=== PATIENT | male | born 1940 | race Caucasian/White ===

== ENCOUNTER 2019-11-13 08:53 | Outpatient (CLI) | payer MEDICARE, SELFPAY ==
[2019-11-13 09:30] LABS: Immunochemical Fecal Occult Bl Negative (N)
[2019-11-13 09:31] LABS: IFOB Positive Control Positive
== END 2019-11-13 08:54 | disposition home or self-care (01) ==
PROVIDERS: PCP Internal Medicine; Visit Provider Nurse Practitioner
DX: R19.7 Diarrhea, unspecified (principal)
CPT/HCPCS: 82274; 87045; 87046; 87427

== ENCOUNTER 2020-02-04 10:30 | Outpatient (RCR) | payer MEDICARE, SELFPAY ==
[2019-12-22 08:35] VITALS: BMI 20.1
== END 2020-03-21 23:59 | disposition home or self-care (01) ==
LOC: ANHDMC 10:30
PROVIDERS: PCP Internal Medicine; Visit Provider Internal Medicine
DX: E11.40 Type 2 diabetes mellitus with diabetic neuropathy, unspecified (principal); Z71.3 Dietary counseling and surveillance; Z71.89 Other specified counseling
CPT/HCPCS: 97802; G0108

== ENCOUNTER 2020-03-24 16:53 | Outpatient (CLI) | payer MEDICARE, SELFPAY ==
[2020-03-24 17:37] LABS: Alanine Aminotransferase 13 U/L (4-50); Albumin Level 3.9 g/dL (3.5-5.1); Alkaline Phosphatase 60 U/L (38-126); Aspartate Amino Transferase 20 U/L (17-59); Bilirubin,Total 0.4 mg/dL (0.2-1.3); Blood Urea Nitrogen 20 mg/dL (9-20); Calcium 8.9 mg/dL (8.4-10.2); Carbon Dioxide 23 mmol/L (22-30); Chloride 105 mmol/L (98-107); Cholesterol 101 mg/dL (0-200); Estimated Glomerular Filt Rate 42; Glucose 88 mg/dL (75-110); HDL Direct 46 mg/dL; Potassium 4.3 mmol/L (3.4-5.0); Sodium 139 mmol/L (137-145); Triglycerides 84 mg/dL (<150)
[2020-03-24 17:42] LABS: Hemoglobin A1C 6.1 % (<5.7)
[2020-03-24 17:48] LABS: LDL Cholesterol Direct 34 mg/dL
== END 2020-03-24 16:54 | disposition home or self-care (01) ==
PROVIDERS: PCP Internal Medicine; Visit Provider Nurse Practitioner
DX: I63.9 Cerebral infarction, unspecified (principal); E11.9 Type 2 diabetes mellitus without complications
CPT/HCPCS: 36415; 80053; 80061; 83036

== ENCOUNTER 2020-07-29 07:41 | Outpatient (CLI) | payer MEDICARE, SELFPAY ==
[2020-07-29 08:35] LABS: Alanine Aminotransferase 10 U/L (4-50); Albumin Level 3.8 g/dL (3.5-5.1); Alkaline Phosphatase 57 U/L (38-126); Anion Gap 6 mmol/L (8-16); Aspartate Amino Transferase 20 U/L (17-59); Bilirubin,Total 0.8 mg/dL (0.2-1.3); Blood Urea Nitrogen 17 mg/dL (9-20); Calcium 9.3 mg/dL (8.4-10.2); Carbon Dioxide 32 mmol/L (22-30); Chloride 104 mmol/L (98-107); Cholesterol 117 mg/dL (0-200); Estimated Glomerular Filt Rate 45; Glucose 114 mg/dL (75-110); HDL Direct 48 mg/dL; Sodium 142 mmol/L (137-145); Triglycerides 64 mg/dL (<150)
[2020-07-29 08:37] LABS: Hemoglobin A1C 5.8 % (<5.7)
[2020-07-29 08:46] LABS: LDL Cholesterol Direct 41 mg/dL
[2020-07-29 09:06] LABS: Microalbumin Urine Random 9.3 mg/L (0-16.7)
[2020-07-29 09:24] LABS: Creatinine Urine 59.1 mg/dL; MALB Creatinine Ratio 15.7 mg/g (0-30)
== END 2020-07-29 07:42 | disposition home or self-care (01) ==
PROVIDERS: PCP Internal Medicine; Visit Provider Internal Medicine
DX: E11.40 Type 2 diabetes mellitus with diabetic neuropathy, unspecified (principal); I10 Essential (primary) hypertension; E78.5 Hyperlipidemia, unspecified
CPT/HCPCS: 36415; 80053; 80061; 82043; 83036

== ENCOUNTER 2020-08-02 00:08 | Outpatient (CLI) | payer MEDICARE, SELFPAY ==
[2020-08-02 19:47] LABS: SARS-CoV-2 RNA PCR Negative
== END 2020-08-02 00:09 | disposition home or self-care (01) ==
LOC: ANHCOVIDDT 00:08
PROVIDERS: PCP Internal Medicine; Visit Provider Internal Medicine Gastroenterology
DX: Z01.818 Encounter for other preprocedural examination (principal); Z20.828 Contact with and (suspected) exposure to other viral communicable diseases
CPT/HCPCS: 87635; C9803; U0003

== ENCOUNTER 2020-08-05 01:18 | Day surgery (SDC) | payer MEDICARE, SELFPAY ==
[2020-07-29 15:07] VITALS: BMI 24.0
[2020-08-05 07:04] VITALS: BP 166/77; PULSE 64; RESP 16; TEMP 36.4; O2SAT 100; BMI 19.7
[2020-08-05 07:44] LABS: Glucose Point of Care 114 (65-105)
[2020-08-05] MEDS: LACTATED RINGERS 1,000 ML 150 ML IV CONT (07:44)
--- NOTE | 2020-08-05 07:48 | WPDANESEPPF ---
Anes - Initial Pre Proc Eval Procedure: Operation Date: 08/05/20 08:00 Proposed Procedures p Colonoscopy - Dashawn Heart MD Date/Time: 08/05/20 07:48 Surgeon: Dashawn Heart MD Pre Op Diagnosis: Diarrhea Patient Data Age: 80 Gender: M Height: 1.88 m Weight: 69.7 kg Last Vital Signs Temp 36.4 C 08/05/20 07:04 Pulse 64 08/05/20 07:04 Resp 16 08/05/20 07:04 BP 166/77 H 08/05/20 07:04 Pulse Ox 100 08/05/20 07:04 Allergies Allergy/AdvReac Type Severity Reaction Status Date / Time No Known Allergies Allergy Verified 08/05/20 07:00 Home Medications Medication Instructions Recorded Confirmed Type blood-glucose meter #1 each 09/04/19 08/02/20 Rx blood sugar diagnostic #100 each 09/07/19 08/02/20 Rx lancets 33 gauge #100 each 09/07/19 08/02/20 Rx lisinopril 10 mg tablet See Rx Instructions .ROUTE 03/29/20 08/05/20 Rx .COMPLEX #90 unspecified atorvastatin 40 mg tablet 40 mg PO DAILY #90 tablet 04/14/20 08/05/20 Rx metformin 1,000 mg tablet 1,000 mg PO BID #180 tablet 04/14/20 08/05/20 Rx metoprolol succinate 50 mg 50 mg PO DAILY #90 tablet 04/14/20 08/05/20 Rx tablet,extended release 24 hr pantoprazole 40 mg tablet,delayed 40 mg PO QAM #90 tablet 04/14/20 08/05/20 Rx release sitagliptin 50 mg tablet 50 mg PO DAILY #90 tablet 05/26/20 08/05/20 Rx methylcellulose (laxative) 2 g PO DAILY #1191 g 07/21/20 08/02/20 Rx peg 3350-electrolytes 236 240 ml PO Q10M #4000 ml 07/25/20 08/02/20 Rx gram-22.74 gram-6.74 gram-5.86 gram solution sodium,potassium,mag sulfates 17.5 480 ml PO .COMPLEX #480 ml 07/25/20 08/02/20 Rx gram-3.13 gram-1.6 gram oral soln Laboratory Tests 08/05/20 07:43 POC Capillary Glucose 114 mg/dl H mg/dl (65-105) Patient hx anesthesia problems: none Family hx anesthesia problems: none PMFSH Past Medical History Medical History (Updated 07/29/20 @ 08:40 by Nick Pompa DO) Incontinence of bowel Low hemoglobin and low hematocrit Surgical History Surgical History H/O basal cell carcinoma excision H/O colonoscopy H/O colonoscopy History of melanoma excision Family History Family History Mother Carcinoma of colon Patient's mother is Acute myocardial infarction Sibling Family history of type 2 diabetes mellitus Malignant neoplasm of prostate Father Patient's father is Acute myocardial infarction Other Family history of cardiovascular disease Social History Social History Smoking status: Former smoker Tobacco type: cigarettes Second hand tobacco smoke exposure: No Smoking end date: 09/23/1964 Alcohol intake: never Substance use: never Substance use type: does not use Living arrangements: alone Gender identity (if verbalized by the patient): Male Spiritual care concerns: No Anes - Eval Final PreProcedure Day of Procedure 08/05/20 07:48 Patient weight: normal Heart: regular rate and rhythm Lungs: clear to auscultation and normal air movement Airway: Mallampati scale class II Neurological: alert and oriented Last oral intake: >/= 8 hours ASA classification: III Emergent: no Anesthetic plan: proceed Anesthesia type and monitoring: general GIVS Informed Consent: The patient's anesthetic plan and its attendant risks and benefits were discussed with the patient/family/POA. Questions were solicited and answers provided to the satisfaction of the patient/family/POA.
--- NOTE | 2020-08-05 10:25 | WPDHPUPDATE1 ---
History and Physical Update Update Date/Time: 08/05/20 10:25 History and Physical has been reviewed, including an updated exam of the patient. There are NO changes in the patient's condition. Risks, benefits, and alternatives have been discussed and questions answered. Patient agrees to proceed with procedure.
[2020-08-05 10:50] VITALS: BP 118/69; PULSE 74; RESP 20; O2SAT 96
[2020-08-05 11:00] VITALS: BP 122/74; PULSE 70; RESP 17; O2SAT 97
[2020-08-05 11:10] VITALS: BP 134/83; PULSE 63; RESP 15; O2SAT 100
== END 2020-08-05 11:31 | disposition home or self-care (01) ==
PROVIDERS: PCP Internal Medicine; Visit Provider Internal Medicine Gastroenterology
PROC: 0DJD8ZZ Inspection of Lower Intestinal Tract, Via Natural or Artificial Opening Endoscopic (ICD-10-PCS; CPT 45378; principal; 2020-08-05 08:00)
DX: R15.9 Full incontinence of feces (principal); R19.7 Diarrhea, unspecified; D12.2 Benign neoplasm of ascending colon; K64.8 Other hemorrhoids; E11.40 Type 2 diabetes mellitus with diabetic neuropathy, unspecified; I10 Essential (primary) hypertension; Z79.84 Long term (current) use of oral hypoglycemic drugs; Z87.891 Personal history of nicotine dependence
CPT/HCPCS: 45380; 45385; 87635; 88305; C9803; J2704; J7120; U0003

== ENCOUNTER 2021-01-30 07:58 | Outpatient (CLI) | payer MEDICARE, SELFPAY ==
[2021-01-30 08:53] LABS: Alanine Aminotransferase 11 U/L (4-50); Alkaline Phosphatase 66 U/L (38-126); Anion Gap 3 mmol/L (8-16); Aspartate Amino Transferase 21 U/L (17-59); Bilirubin,Total 0.5 mg/dL (0.2-1.3); Blood Urea Nitrogen 17 mg/dL (9-20); Calcium 9.9 mg/dL (8.4-10.2); Carbon Dioxide 34 mmol/L (22-30); Chloride 103 mmol/L (98-107); Cholesterol 123 mg/dL (0-200); Estimated Glomerular Filt Rate 39; Glucose 109 mg/dL (75-110); HDL Direct 64 mg/dL; Potassium 4.2 mmol/L (3.4-5.0); Sodium 140 mmol/L (137-145); Triglycerides 42 mg/dL (<150)
[2021-01-30 09:04] LABS: LDL Cholesterol Direct 46 mg/dL
== END 2021-01-30 07:59 | disposition home or self-care (01) ==
PROVIDERS: PCP Internal Medicine; Visit Provider Internal Medicine
DX: N18.30 Chronic kidney disease, stage 3 unspecified (principal); E11.22 Type 2 diabetes mellitus with diabetic chronic kidney disease; E11.40 Type 2 diabetes mellitus with diabetic neuropathy, unspecified; E78.5 Hyperlipidemia, unspecified
CPT/HCPCS: 36415; 80053; 80061; 83036

== ENCOUNTER 2021-01-31 12:03 | Outpatient (CLI) | payer MEDICARE, SELFPAY ==
[2021-01-31 16:06] LABS: IFOB Positive Control Positive; Immunochemical Fecal Occult Bl Negative (N)
== END 2021-01-31 12:04 | disposition home or self-care (01) ==
PROVIDERS: PCP Internal Medicine; Visit Provider Nurse Practitioner
DX: R19.7 Diarrhea, unspecified (principal)
CPT/HCPCS: 82274

== ENCOUNTER 2021-08-05 07:46 | Outpatient (CLI) | payer MEDICARE, SELFPAY ==
[2021-08-05 08:23] LABS: Hemoglobin A1C 5.5 % (<5.7)
[2021-08-05 09:29] LABS: Alanine Aminotransferase 12 U/L (4-50); Albumin Level 4.1 g/dL (3.5-5.1); Alkaline Phosphatase 57 U/L (38-126); Anion Gap 8 mmol/L (8-16); Aspartate Amino Transferase 22 U/L (17-59); Bilirubin,Total 0.9 mg/dL (0.2-1.3); Blood Urea Nitrogen 18 mg/dL (9-20); Calcium 9.4 mg/dL (8.4-10.2); Carbon Dioxide 27 mmol/L (22-30); Chloride 104 mmol/L (98-107); Cholesterol 147 mg/dL (0-200); Estimated Glomerular Filt Rate 45; Glucose 125 mg/dL (65-110); HDL Direct 60 mg/dL; Potassium 3.9 mmol/L (3.4-5.0); Sodium 139 mmol/L (137-145); Triglycerides 71 mg/dL (<150)
[2021-08-05 09:40] LABS: LDL Cholesterol Direct 57 mg/dL
== END 2021-08-05 07:47 | disposition home or self-care (01) ==
PROVIDERS: PCP Internal Medicine; Visit Provider Internal Medicine
DX: E11.40 Type 2 diabetes mellitus with diabetic neuropathy, unspecified (principal); I10 Essential (primary) hypertension; E78.5 Hyperlipidemia, unspecified
CPT/HCPCS: 36415; 80053; 80061; 83036

== ENCOUNTER 2022-03-19 07:36 | Outpatient (CLI) | payer MEDICARE, SELFPAY ==
[2022-03-19 08:22] LABS: Alanine Aminotransferase 10 U/L (6-50); Albumin Level 3.8 g/dL (3.5-5.1); Alkaline Phosphatase 58 U/L (38-126); Anion Gap 3 mmol/L (8-16); Aspartate Amino Transferase 19 U/L (17-59); Bilirubin,Total 0.5 mg/dL (0.2-1.3); Blood Urea Nitrogen 20 mg/dL (9-20); Calcium 8.8 mg/dL (8.4-10.2); Carbon Dioxide 32 mmol/L (22-30); Chloride 105 mmol/L (98-107); Cholesterol 139 mg/dL (0-200); Estimated Glomerular Filt Rate 45; Glucose 107 mg/dL (65-110); HDL Direct 59 mg/dL; Potassium 4.1 mmol/L (3.4-5.0); Sodium 140 mmol/L (137-145); Triglycerides 41 mg/dL (<150)
[2022-03-19 08:33] LABS: LDL Cholesterol Direct 49 mg/dL
[2022-03-19 08:35] LABS: Creatinine Urine 60.7 mg/dL
[2022-03-19 08:38] LABS: Hemoglobin A1C 5.3 % (<5.7)
[2022-03-19 08:40] LABS: MALB Creatinine Ratio 11.4 mg/g (0-30); Microalbumin Urine Random 6.9 mg/L (0-16.7)
== END 2022-03-19 07:37 | disposition home or self-care (01) ==
LOC: ANHLAB 07:39
PROVIDERS: PCP Internal Medicine; Visit Provider Internal Medicine
DX: E11.40 Type 2 diabetes mellitus with diabetic neuropathy, unspecified (principal); E11.22 Type 2 diabetes mellitus with diabetic chronic kidney disease; N18.30 Chronic kidney disease, stage 3 unspecified; R41.3 Other amnesia
CPT/HCPCS: 36415; 80053; 80061; 82043; 82607; 83036

== ENCOUNTER 2023-09-10 09:08 | Outpatient (CLI) | payer MEDICARE, SELFPAY ==
[2023-09-10 10:20] LABS: Basophils Absolute Auto 0.1 K/mm3 (0.0-0.1); Basophils Percent Auto 1.2 % (0.2-1.2); Eosinophils Absolute Auto 0.3 K/mm3 (0-0.3); Eosinophils Percent Auto 4.1 % (0-4.4); Hematocrit 39.3 % (42.0-52.0); Hemoglobin 12.6 g/dL (14.0-18.0); Immature Granulocyte Absolute 0.03 K/mm3 (0.00-0.031); Immature Granulocyte Percent A 0.4 % (0-0.5); Lymphocytes Absolute Auto 1.29 K/mm3 (0.9-3.2); Lymphocytes Percent Auto 18.7 % (18.3-44.2); Mean Corpuscular HGB Conc 32.1 g/dl (32-36); Mean Corpuscular Hemoglobin 30.9 pg (26-34); Mean Corpuscular Volume 96.3 fl (80-100); Mean Platelet Volume 10.6 fl (7.4-10.4); Monocytes Absolute Auto 0.6 K/mm3 (0.1-0.6); Monocytes Percent Auto 8.7 % (2.6-8.5); Neutrophils Absolute Auto 4.6 K/mm3 (1.3-6.7); Neutrophils Percent Auto 66.9 % (45.5-73.1); Platelet Count Result 198 k/mm3 (150-375); Red Blood Count 4.08 M/mm3 (4.6-6.20); Red Cell Distribution Width 13.1 % (11.5-14.5); White Blood Count 6.9 K/mm3 (4.5-10.0)
[2023-09-10 10:31] LABS: Alanine Aminotransferase 11 U/L (6-50); Alkaline Phosphatase 55 U/L (38-126); Anion Gap 10 mmol/L (8-16); Aspartate Amino Transferase 23 U/L (17-59); Bilirubin,Total 0.8 mg/dL (0.2-1.3); Blood Urea Nitrogen 29 mg/dL (9-20); Calcium 8.9 mg/dL (8.4-10.2); Carbon Dioxide 25 mmol/L (22-30); Chloride 106 mmol/L (98-107); Cholesterol 157 mg/dL (0-200); Estimated Glomerular Filt Rate 36; Glucose 93 mg/dL (65-110); HDL Direct 62 mg/dL; Potassium 4.4 mmol/L (3.4-5.0); Sodium 141 mmol/L (137-145); Triglycerides 56 mg/dL (<150)
[2023-09-10 10:41] LABS: LDL Cholesterol Direct 65 mg/dL
[2023-09-10 10:44] LABS: Hemoglobin A1C 5.9 % (<5.7)
== END 2023-09-10 09:09 | disposition home or self-care (01) ==
PROVIDERS: PCP Nurse Practitioner Family; Visit Provider Nurse Practitioner Family
DX: F32.9 Major depressive disorder, single episode, unspecified (principal); Z13.0 Encounter for screening for diseases of the blood and blood-forming organs and certain disorders involving the immune mechanism; E78.5 Hyperlipidemia, unspecified; E11.40 Type 2 diabetes mellitus with diabetic neuropathy, unspecified; I10 Essential (primary) hypertension
CPT/HCPCS: 36415; 80053; 80061; 83036; 85025

== ENCOUNTER 2023-11-04 20:41 | Inpatient (IN) | payer MEDICARE, SELFPAY ==
--- NOTE | ~2023-11-04 | XR_ITS ---
EXAMINATION: XR surgery orthopedic DATE: 11/05/2023 15:17 INDICATION: Left hip bipolar arthroplasty TECHNIQUE: 2 AP radiographs of the pelvis were obtained during procedure performed by Dr. Buchanan. R adiologist was not present for the imaging or procedure. COMPARISON: None. FINDINGS: Initial image demonstrates placement of a trial bipolar type left hip hemiarthroplasty which is in ne ar-anatomic alignment. This been replaced with the final clinical type left hip hemiarthroplasty on t he final image. The arthroplasty appears well seated in near-anatomic alignment. No acute fracture. O ld right subcapital fracture which is fixed in near anatomic alignment by 3 cannulated lag screws. Po rtions of the pelvis are obscured by a bolster. There is also a partially visualized clamp, likely ex ternal to the patient and projecting over the medial aspect of the left thigh. IMPRESSION: 1. Expected appearance during placement of a bipolar type left hip hemiarthroplasty which is in near- anatomic alignment. Reviewed, dictated and finalized at location A. RVISOR GRAPHITE IMPRESSION: 1. Expected appearance during placement of a bipolar type left hip hemiarthropl asty which is in near-anatomic alignment.
--- NOTE | ~2023-11-04 | XR_ITS ---
AP view of the pelvis and AP and lateral views of the left hip Clinical history: Pain Findings: There is an acute, mildly displaced subcapital fracture of the proximal left femoral neck. 3 orthopedic screws are visualized in the right femoral neck. Bilateral hip and SI joint spaces are p reserved. Soft tissues are unremarkable. Impression: Acute subcapital fracture of the proximal left femoral neck. Reviewed, dictated and finalized at location . AULIC MINER BLASTING Impression: Acute subcapital fracture of the proximal left femoral neck.
--- NOTE | ~2023-11-04 | XR_ITS ---
EXAMINATION: XR chest 1V portable DATE: 11/04/2023 22:11 INDICATION: Weakness and vomiting TECHNIQUE: frontal view of the chest was obtained. COMPARISON: Chest radiograph dated 12/07/2018 FINDINGS: Pulmonary markings extend beyond skin folds which project over the right upper lobe or lung and left midlung. Subtle fine reticulonodular opacities in the region of the bilateral costophrenic angles of relatively high attenuation further small size suggesting calcification either within the lung or per ipheral calcified pleural plaques or potentially aspirated barium. No other airspace opacities, pulmo nary edema, pleural effusion or pneumothorax. The cardiomediastinal silhouette is normal. IMPRESSION: 1. No acute cardiopulmonary disease. 2. Subtle underlying dense reticular nodular opacities at the lateral aspect of the bilateral lung ba ses which could represent tiny calcified pulmonary nodules, minimal aspirated barium or potentially c alcified pleural plaques. Reviewed, dictated and finalized at location A. HORE WIND TURBINE TECHNICIAN IMPRESSION: 1. No acute cardiopulmonary disease. 2. Subtle underlying dense reticular nodular opacities at the lateral aspect of the bilateral lung bases which could represent tiny calcified pulmonary nodule s, minimal aspirated barium or potentially calcified pleural plaques.
--- NOTE | ~2023-11-04 | CT_ITS ---
Non-contrast Head CT History: Weakness Technique: Axial non-contrast imaging of the brain was performed. Dose reduction technique was used on this scan by utilizing automated exposure control and iterative reconstruction technique. The dose -length product (DLP) was 681.00 mGy-cm. Findings: There is no evidence of intracranial hemorrhage, mass lesion, or acute infarct. Large instructor dancing natasha right MCA distribution infarct is present.. The ventricles and subarachnoid spaces are normal in size. The calvarium appears normal. The visualized paranasal sinuses and mastoid air cells are eufemia ar. Impression: No acute abnormality seen. Large chronic right MCA distribution infarct. Reviewed, dictated and finalized at location . ERING DEPARTMENT SUPERVISOR Impression: No acute abnormality seen. Large chronic right MCA distribution infarct.
[2023-11-04 20:47] VITALS: BP 181/74; PULSE 71; RESP 16; TEMP 36.6; O2SAT 100
[2023-11-04 21:06] VITALS: PULSE 77
--- NOTE | 2023-11-04 21:37 | ECG_ITS ---
Measurements Intervals [place] Rate: 80 P: 63 ND: 172 QRS: -70 QRSD: 120 T: 77 QT: 371 QTc: 428 Interpretive Statements SINUS RHYTHM INFERIOR MYOCARDIAL INFARCTION , PROBABLY OLD [40+ ms Q WAVE AND/OR ST/T ABNORMALITY IN II/aVF] ANTEROSEPTAL MYOCARDIAL INFARCTION , OLD COMPARED TO ECG 12/07/2018 15:08:54 NO SIGNIFICANT CHANGES Electronically Signed On 11-05-2023 14:59:05 HOT KNIFE CUTTER by Son Naylor M.D.
[2023-11-04 22:00] LABS: Hematocrit 38.3 % (42.0-52.0); Hemoglobin 12.3 g/dL (14.0-18.0); Mean Corpuscular HGB Conc 32.1 g/dl (32-36); Mean Corpuscular Hemoglobin 31.2 pg (26-34); Mean Corpuscular Volume 97.2 fl (80-100); Mean Platelet Volume 10.1 fl (7.4-10.4); Platelet Count Result 151 k/mm3 (150-375); Red Blood Count 3.94 M/mm3 (4.6-6.20); White Blood Count 16.4 K/mm3 (4.5-10.0)
[2023-11-04 22:05] LABS: Alanine Aminotransferase 19 U/L (6-50); Alkaline Phosphatase 71 U/L (38-126); Anion Gap 9 mmol/L (8-16); Aspartate Amino Transferase 29 U/L (17-59); Bilirubin,Total 0.9 mg/dL (0.2-1.3); Blood Urea Nitrogen 23 mg/dL (9-20); Calcium 9.1 mg/dL (8.4-10.2); Carbon Dioxide 23 mmol/L (22-30); Chloride 107 mmol/L (98-107); Estimated CRCL calculation 33 ml/min; Estimated Glomerular Filt Rate 41; Glucose 181 mg/dL (65-110); Sodium 139 mmol/L (137-145)
[2023-11-04 22:19] LABS: Band Neutrophils Percent 6 % (0-6); Lymphocytes Absolute Manual 0.32 K/mm3 (1.1-4.5); Monocytes Absolute Manual 1.64 K/mm3 (0.1-0.90); Monocytes Percent Manual 10 % (3-9); Neutrophils Absolute Manual 14.43 K/mm3 (1.3-6.7); Neutrophils Percent Manual 82 % (46-73); Platelet Estimate Adequate (Adequate); Total Cells Counted 100
[2023-11-04 22:20] LABS: Schistocytes None Seen (NORMAL)
--- NOTE | 2023-11-04 23:14 | ED.GENADULT ---
HPI - General Adult General Chief complaint: Weakness Stated complaint: generalized wekaness, N/V, GLF Time Seen by Provider: 11/04/23 22:26 History of Present Illness HPI narrative: This is an 83-year-old male presenting ED for generalized weakness. Patient says that starting yesterday he was not feeling well. He has had some nausea/vomiting/diarrhea. Denies fevers chills chest pain difficulty breathing abdominal pain or urinary symptoms. He said he did slide to the ground earlier today and since then he has been too weak to get up. He is complaining of pain in his left hip. Related Data Home Medications Medication Instructions Recorded Confirmed metformin 1,000 mg tablet 1,000 mg PO BID 10/16/23 10/17/23 pantoprazole 40 mg tablet,delayed 40 mg PO QAM 10/16/23 10/17/23 release sitagliptin phosphate 50 mg tablet 50 mg PO DAILY 10/16/23 10/17/23 (Januvia) Allergies Allergy/AdvReac Type Severity Reaction Status Date / Time No Known Allergies Allergy Verified 11/04/23 21:05 [facility] Past Medical History Medical History Body mass index (BMI) 20.0-20.9, adult (06/05/19) Cerumen impaction Impacted cerumen of both ears Incontinence of bowel Left inguinal hernia Lesion of left external ear Low hemoglobin and low hematocrit Recent cerebral hemorrhage Surgical History Surgical History H/O basal cell carcinoma excision H/O colonoscopy H/O colonoscopy History of melanoma excision Family History Family History Mother Carcinoma of colon Patient's mother is Acute myocardial infarction Sibling Family history of type 2 diabetes mellitus Malignant neoplasm of prostate Father Patient's father is Acute myocardial infarction Other Family history of cardiovascular disease Social History Social History Smoking packs per day: 2 Smoking cigarettes per day: 40.0 Years smoked: 4 Smoking pack-years: 8.00 Smoking status: Former smoker Tobacco type: cigarettes Second hand tobacco smoke exposure: No Smoking end date: 09/23/1964 Alcohol intake: never Substance use: never Substance use type: does not use Do You Feel Safe in your Home?: Yes Lack of Transportation: No Lack of Food: Never True Current Housing: I Have Housing Concerned About Future Housing: No Difficulty Paying Gas/Electric Bills: No Difficulty Paying for Meds: No Currently Unemployed: No Education: Bachelor's Degree Difficulty w/ Childcare or Family Care: No Living arrangements: alone Occupation/Education: retired Gender identity (if verbalized by the patient): Male Spiritual care concerns: No Exam Narrative: APPEARANCE: patient appears chronically unwell. Head: atraumatic. EYES: EOMI, NOSE: Atraumatic NECK: Trachea midline RESPIRATORY: No increased rate of breathing, clear to auscultation CARDIOVASCULAR: RRR, no peripheral edema ABDOMINAL: Non-distended soft nontender no guarding or rebound MUSCULOSKELETAl: pain with active and passive motion of the left hip, pulses intact NEURO: Alert. Moving 4/4 extremities SKIN:: Warm, dry. Normal color PSYCHIATRIC: Normal affect Course Vital Signs Vital signs: Vital Signs Temperature 97.8 F 11/04/23 20:47 Pulse Rate 71 11/04/23 20:47 Respiratory Rate 16 11/04/23 20:47 Blood Pressure 181/74 H 11/04/23 20:47 Pulse Oximetry 100 11/04/23 20:47 Oxygen Delivery Room Air 11/04/23 20:47 Temperature 97.8 F 11/04/23 20:47 Pulse Rate 77 11/04/23 21:06 Respiratory Rate 16 11/04/23 20:47 Blood Pressure 181/74 H 11/04/23 20:47 Pulse Oximetry 100 11/04/23 20:47 Oxygen Delivery Room Air 11/04/23 20:47 Medical Decision Making MDM Narrative Medical decision making narra
[2023-11-04 23:24] LABS: Creatine Kinase 100 U/L (55-170); Lipase 128 U/L (23-300); Magnesium 1.9 mg/dL (1.6-2.3)
[2023-11-04 23:34] LABS: NT Pro B Type Natriuretic Pept 2540 pg/mL (19.9-100)
[2023-11-04 23:37] LABS: Ethanol < 10 mg/dL (<10)
[2023-11-04] MEDS: SODIUM CHLORIDE 0.9% IV 2,000 ML 999 ML IV CONT (23:45)
[2023-11-04] MEDS: ACETAMINOPHEN 500 MG TABLET 1000 MG PO (23:45)
[2023-11-04 23:51] LABS: Troponin I < 0.012 ng/mL (0.000-0.034)
[2023-11-04 23:57] LABS: Lactic Acid Reflex 2.8 mmol/L (0.7-2.0)
[2023-11-05] VITALS (18 sets, daily range): BP systolic 128–168; BP diastolic 49–77; PULSE 60–82; RESP 10–20; TEMP 36.1–37.5; O2SAT 93–100; BMI 19.0
[2023-11-05 00:02] LABS: Appearance Urine Clear (Clear); Bacteria Urine None Seen /hpf; Bilirubin Urine Negative (Negative); Blood Urine Negative (Negative); Color Urine Yellow (Yellow); Glucose Urine UA Trace mg/dL (Negative); Ketones Urine Negative (Negative); Leukocyte Esterase Ur Negative LEU/UL (Negative); Nitrate Urine Negative (Negative); Non Pathogenic Casts 0-2; Protein Urine 1+ mg/dL (Negative); RBC Urine 0-2 /hpf (0-2); Specific Grav Ur 1.012 (1.001-1.035); Squamous Epithelial Cell Urine None seen /hpf (Few); Urobilinogen Urine 0.2 mg/dL (<2.0); WBC Urine 0-5 /hpf; pH Urine 6.5 (5.0-9.0)
[2023-11-05 00:03] LABS: Partial Thromboplastin Time 25.5 SECONDS (22.3-36.8); Prothrombin Time 13.9 Seconds (11.1-14.7)
[2023-11-05 00:05] LABS: Add Urine Microscopic? YES
[2023-11-05 00:13] LABS: Amphetamine Screen Urine Negative (Negative); Barbiturate Screen Urine Negative (Negative); Benzodiazepines Screen Urine Negative (Negative); Cannabinoid Screen Urine Negative (Negative); Cocaine Screen Urine Negative (Negative); Methadone Screen Urine Negative (Negative); Opiate Screen Urine Negative (Negative); Phencyclidine Screen Urine Negative (Negative)
[2023-11-05 00:30] LABS: Influenza A QL RT-PCR Negative (Negative); Influenza B QL RT-PCR Negative (Negative); RSV RNA, RT-PCR Negative (Negative); SARS-CoV-2 RNA PCR Negative (Negative)
--- NOTE | 2023-11-05 01:53 | ADMGEN ---
This patient, Piyush Ayon, was admitted to Medical Room 243-01. Patient/family oriented to hospital policies and general routines including ID bracelet, bed and alarms, visiting hours, pain management, procedures, bathroom and other care routines, personal items, smoking policy, room service/diet, and visiting hours. Information on how to activate the Rapid Response Team has been discussed. Patient/Family are encouraged to report perceived risks to care and to ask questions if they do not understand what they are told or what they should do.
[2023-11-05 02:41] LABS: Troponin I 0.022 ng/mL (0.000-0.034)
[2023-11-05 02:47] LABS: Reflex Lactic Acid Yes or No Add Lactic
[2023-11-05 03:52] LABS: Lactic Acid 2.4 mmol/L (0.7-2.0)
[2023-11-05] MEDS: HYDROmorphone HCL INJ (*CRX) 1 MG/ML SYR IV PUSH (05:27)
--- NOTE | 2023-11-05 06:51 | PM.CNOR ---
Assessment and Plan Assessment and plan (1) Fracture of femoral neck, left: Code(s): S72.002A - Fracture of unspecified part of neck of left femur, initial encounter for closed fracture Status: Acute Assessment and Plan: Patient has a fracture left femoral neck. It is displaced enough I do not think pinning work needed bipolar endoprosthetic replacement. I have discussed this with him. He is a high risk surgical candidate. We will proceed today pending medical approval. History of Present Illness HPI Consult date: 11/05/23 Consult reason: joint pain and fracture Chief complaint: Hip Fracture Narrative: Patient slid down and suffered a left hip fracture. He has a previous hip fracture on the right is been pinned. Review of Systems Musculoskeletal: Musculoskeletal: Reports arthralgias and Reports joint swelling PMFSH Past Medical History Medical History Body mass index (BMI) 20.0-20.9, adult (06/05/19) Cerumen impaction Impacted cerumen of both ears Incontinence of bowel Left inguinal hernia Lesion of left external ear Low hemoglobin and low hematocrit Recent cerebral hemorrhage Surgical History Surgical History H/O basal cell carcinoma excision H/O colonoscopy H/O colonoscopy History of melanoma excision Family History Family History Mother Carcinoma of colon Patient's mother is Acute myocardial infarction Sibling Family history of type 2 diabetes mellitus Malignant neoplasm of prostate Father Patient's father is Acute myocardial infarction Other Family history of cardiovascular disease Social History Social History Smoking packs per day: 2 Smoking cigarettes per day: 40.0 Years smoked: 4 Smoking pack-years: 8.00 Smoking status: Former smoker Tobacco type: cigarettes Second hand tobacco smoke exposure: No Smoking end date: 09/23/1964 Alcohol intake: never Substance use: never Substance use type: does not use Do You Feel Safe in your Home?: Yes Lack of Transportation: No Lack of Food: Never True Current Housing: I Have Housing Concerned About Future Housing: No Difficulty Paying Gas/Electric Bills: No Difficulty Paying for Meds: No Currently Unemployed: No Education: Bachelor's Degree Difficulty w/ Childcare or Family Care: No Living arrangements: alone Occupation/Education: retired Gender identity (if verbalized by the patient): Male Spiritual care concerns: No Meds Home Medications and Allergies Home Medications Medication Instructions Recorded Confirmed Type blood-glucose meter (OneTouch #1 ea 09/04/19 11/05/23 Rx Verio Flex Meter) blood sugar diagnostic (OneTouch #100 ea 09/07/19 11/05/23 Rx Verio test strips) lancets 33 gauge (BD Ultra Fine #100 ea 09/07/19 11/05/23 Rx Lancets) atorvastatin 40 mg tablet 40 mg PO DAILY #90 ea 08/27/23 11/05/23 Rx metformin 1,000 mg tablet 1,000 mg PO BID 10/16/23 11/05/23 History pantoprazole 40 mg tablet,delayed 40 mg PO QAM 10/16/23 11/05/23 History release sitagliptin phosphate 50 mg tablet 50 mg PO DAILY 10/16/23 11/05/23 History (Ronnieuvia) lisinopril 10 mg tablet 10 mg PO DAILY 11/05/23 11/05/23 History metoprolol succinate 50 mg 50 mg PO DAILY 11/05/23 11/05/23 History tablet,extended release 24 hr Allergies Allergy/AdvReac Type Severity Reaction Status Date / Time No Known Allergies Allergy Verified 11/04/23 21:05 Vital Signs Vital Signs - 24 hr 11/04/23 20:47 11/04/23 21:06 11/05/23 00:58 Temperature 97.8 F Pulse Rate 71 77 74 Respiratory Rate 16 15 Blood Pressure 181/74 H 141/61 H Pulse Oximetry 100 97 Oxygen Delivery Room Air 11/05/23 01:30 11/05/23 01:58 11/05/23 01:40 Temperatur
[2023-11-05 09:02] LABS: Basophils Percent Auto 0.1 % (0.2-1.2); Hematocrit 36.2 % (42.0-52.0); Immature Granulocyte Absolute 0.08 K/mm3 (0.00-0.031); Immature Granulocyte Percent A 0.5 % (0-0.5); Lymphocytes Absolute Auto 1.12 K/mm3 (0.9-3.2); Lymphocytes Percent Auto 7.6 % (18.3-44.2); Mean Corpuscular HGB Conc 33.1 g/dl (32-36); Mean Corpuscular Hemoglobin 31.5 pg (26-34); Mean Platelet Volume 10.2 fl (7.4-10.4); Neutrophils Absolute Auto 12.4 K/mm3 (1.3-6.7); Neutrophils Percent Auto 84.8 % (45.5-73.1); Platelet Count Result 151 k/mm3 (150-375); Red Blood Count 3.81 M/mm3 (4.6-6.20); Red Cell Distribution Width 13.1 % (11.5-14.5); White Blood Count 14.7 K/mm3 (4.5-10.0)
[2023-11-05] MEDS: METOPROLOL SUCCINATE EXT REL 50 MG TABCR PO (09:06)
[2023-11-05 09:16] LABS: Lactic Acid Reflex 1.3 mmol/L (0.7-2.0)
[2023-11-05 09:18] LABS: Alanine Aminotransferase 14 U/L (6-50); Albumin Level 3.2 g/dL (3.5-5.1); Alkaline Phosphatase 54 U/L (38-126); Anion Gap 3 mmol/L (8-16); Aspartate Amino Transferase 26 U/L (17-59); Blood Urea Nitrogen 22 mg/dL (9-20); Calcium 8.6 mg/dL (8.4-10.2); Carbon Dioxide 27 mmol/L (22-30); Chloride 108 mmol/L (98-107); Estimated CRCL calculation 32 ml/min; Estimated Glomerular Filt Rate 45; Glucose 131 mg/dL (65-110); Potassium 4.2 mmol/L (3.4-5.0); Sodium 138 mmol/L (137-145)
--- NOTE | 2023-11-05 10:06 | PM.IMHP ---
H&P: HPI History of Present Illness Date/Time: 11/05/23 10:06 Chief Complaint: Fall Narrative: 83-year-old male who presented to the ED after a fall. The fall happened around. Something feeling weak. States she slid to the ground and was not wall however was unable to get up. He laid on the ground until his brother came for her down on the floor and called EMS. Upon arrival to the ED he was mildly hypertensive a workup showed WBC count of 16,000 elevated lactic acid of 2.8. Cultures were obtained. Negative. X-ray pelvis showed displaced fracture of his left hip. He is admitted for evaluation and management CV IV fluid for lactic acid and lactic acid has already normalized. Be a 2500. Troponin was negative and serial troponin was negative. EKG was reviewed personally and shows chronic left bundle branch block exactly similar compared to older EKG. Chest x-ray with no acute findings CT head with no acute findings except for chronic encephalomalacia from previous stroke. Patient has history of diabetes hypertension hyperlipidemia and chronic kidney disease. His chronic kidney disease is stable. His A1c at 5.31 August 2023. Orthopedic consultation has been obtained and is planned for left hip replacement today. He will be at moderate risk for the planned surgery due to his underlying history of diabetes stroke and chronic kidney disease. Discussed with him and his brother at bedside Review of Systems Review of Systems: - CONSTITUTIONAL: Denies weight loss, fever and chills. - HEENT: Denies changes in vision and hearing - RESPIRATORY: Denies SOB and cough. - CV: Denies palpitations and CP. - GI: Denies abdominal pain, nausea, vomiting and diarrhea. - : Denies dysuria and urinary frequency. - MSK: Denies myalgia and joint pain. See HPI - SKIN: Denies rash and pruritus. - NEUROLOGICAL: Denies headache and syncope. - PSYCHIATRIC: Denies recent changes in mood. Denies anxiety and depression. [facility] Past Medical History Medical History Body mass index (BMI) 20.0-20.9, adult (06/05/19) Cerumen impaction Impacted cerumen of both ears Incontinence of bowel Left inguinal hernia Lesion of left external ear Low hemoglobin and low hematocrit Recent cerebral hemorrhage Surgical History Surgical History H/O basal cell carcinoma excision H/O colonoscopy H/O colonoscopy History of melanoma excision Family History Family History Mother Carcinoma of colon Patient's mother is Acute myocardial infarction Sibling Family history of type 2 diabetes mellitus Malignant neoplasm of prostate Father Patient's father is Acute myocardial infarction Other Family history of cardiovascular disease Social History Social History Smoking packs per day: 2 Smoking cigarettes per day: 40.0 Years smoked: 4 Smoking pack-years: 8.00 Smoking status: Former smoker Tobacco type: cigarettes Second hand tobacco smoke exposure: No Smoking end date: 09/23/1964 Alcohol intake: never Substance use: never Substance use type: does not use Do You Feel Safe in your Home?: Yes Lack of Transportation: No Lack of Food: Never True Current Housing: I Have Housing Concerned About Future Housing: No Difficulty Paying Gas/Electric Bills: No Difficulty Paying for Meds: No Currently Unemployed: No Education: Bachelor's Degree Difficulty w/ Childcare or Family Care: No Living arrangements: alone Occupation/Education: retired Gender identity (if verbalized by the patient): Male Spiritual care concerns: No Meds Home Medications and Allergies Home Medications Medication Instructions Recorded Confirmed Type blood-glucose meter (Shadowd[employer] ConsultingTouch #1 ea 1
--- NOTE | 2023-11-05 12:22 | WPDANESEPPF ---
Anes - Initial Pre Proc Eval Procedure: Operation Date: 11/05/23 13:30 Proposed Procedures p Left Bipolar Hip Replacement - Ren Buchanan MD Date/Time: 11/05/23 12:22 Surgeon: Dewayne Pre Op Diagnosis: Hip Fracture Patient Data Age: 83 Gender: M Height: 1.88 m Weight: 67.2 kg Last Vital Signs Temp 36.4 C 11/05/23 05:17 Pulse 72 11/05/23 09:06 Resp 18 11/05/23 09:06 BP 156/68 H 11/05/23 05:17 Pulse Ox 100 11/05/23 09:06 O2 Del Method Room Air 11/05/23 09:06 Allergies Allergy/AdvReac Type Severity Reaction Status Date / Time No Known Allergies Allergy Verified 11/04/23 21:05 Home Medications Medication Instructions Recorded Confirmed Type blood-glucose meter (OneTouch #1 ea 09/04/19 11/05/23 Rx Verio Flex Meter) blood sugar diagnostic (OneTouch #100 ea 09/07/19 11/05/23 Rx Verio test strips) lancets 33 gauge (BD Ultra Fine #100 ea 09/07/19 11/05/23 Rx Lancets) atorvastatin 40 mg tablet 40 mg PO DAILY #90 ea 08/27/23 11/05/23 Rx metformin 1,000 mg tablet 1,000 mg PO BID 10/16/23 11/05/23 History pantoprazole 40 mg tablet,delayed 40 mg PO QAM 10/16/23 11/05/23 History release sitagliptin phosphate 50 mg tablet 50 mg PO DAILY 10/16/23 11/05/23 History (William) lisinopril 10 mg tablet 10 mg PO DAILY 11/05/23 11/05/23 History metoprolol succinate 50 mg 50 mg PO DAILY 11/05/23 11/05/23 History tablet,extended release 24 hr Laboratory Tests 11/04/23 11/04/23 11/05/23 21:49 23:42 02:11 WBC 16.4 H K/mm3 (4.5-10.0) RBC 3.94 L M/mm3 (4.6-6.20) Hgb 12.3 L g/dL (14.0-18.0) Hct 38.3 L % (42.0-52.0) MCV 97.2 fl (80-100) MCH 31.2 pg (26-34) MCHC 32.1 g/dl (32-36) RDW 13.0 % (11.5-14.5) Plt Count 151 k/mm3 (150-375) MPV 10.1 fl (7.4-10.4) Immature Gran % (Auto) Not Reportable Neut % (Auto) Not Reportable Lymph % (Auto) Not Reportable [place] % (Auto) Not Reportable Eos % (Auto) Not Reportable Baso % (Auto) Not Reportable Lymph # (Auto) Not Reportable [place] # (Auto) Not Reportable Eos # (Auto) Not Reportable Baso # (Auto) Not Reportable Abs Immat Gran (auto) Not Reportable Absolute Neuts (auto) Not Reportable Absolute Nucleated RBC Not Reportable Total Counted 100 Neutrophils % (Manual) 82 H % (46-73) Band Neutrophils % 6 % (0-6) Lymphocytes % (Manual) 2.0 L % (18-44) Monocytes % (Manual) 10 H % (3-9) Nucleated RBC % Not Reportable Abs Neuts (Manual) 14.43 H K/mm3 (1.3-6.7) Abs Lymphs (Manual) 0.32 L K/mm3 (1.1-4.5) Abs Monocytes (Manual) 1.64 H K/mm3 (0.1-0.90) Platelet Estimate Adequate (Adequate) Schistocytes None seen (NORMAL) PT 13.9 Seconds (11.1-14.7) INR 1.0 APTT 25.5 SECONDS (22.3-36.8) Sodium 139 mmol/L (137-145) Potassium 4.0 mmol/L (3.4-5.0) Chloride 107 mmol/L (98-107) Carbon Dioxide 23 mmol/L (22-30) Anion Gap 9 mmol/L (8-16) BUN 23 H mg/dL (9-20) Creatinine 1.60 H mg/dL (0.7-1.3) Estim Creat Clear Calc 33 ml/min Estimated GFR 41 L (59 - ) Glucose 181 H mg/dL (65-110) Lactic Acid 2.8 H mmol/L (0.7-2.0) Calcium 9.1 mg/dL (8.4-10.2) Phosphorus 3.0 mg/dL (2.5-4.5) Magnesium 1.9 mg/dL (1.6-2.3) Total Bilirubin 0.9 mg/dL (0.2-1.3) AST 29 U/L (17-59) ALT 19 U/L (6-50) Alkaline Phosphatase 71 U/L (38-126) Total Creatine Kinase 100 U/L (55-170) Troponin I < 0.012 ng/mL 0.022 D ng/mL
--- NOTE | 2023-11-05 12:30 | PC.NURSE ---
To OR via bed. Family at bedside. Voiding.
[2023-11-05] MEDS: LACTATED RINGERS 1,000 ML 30 ML IV CONT ×2 (12:44→15:58)
[2023-11-05] MEDS: TRANEXAMIC ACID 1,000MG/ISO100 1,000 MG/100 ML BAG 200 MG IVPB (12:59)
--- NOTE | 2023-11-05 13:00 | WPDHPUPDATE1 ---
History and Physical Update Update Date/Time: 11/05/23 13:00 History and Physical has been reviewed, including an updated exam of the patient. There are NO changes in the patient's condition. Risks, benefits, and alternatives have been discussed and questions answered. Patient agrees to proceed with procedure.
[2023-11-05] MEDS: VANCOMYCIN 1,000 MG/NS 250 ML 1,000 MG/250 ML BAG 250 MG IVPB (13:14)
[2023-11-05] MEDS: ceFAZolin 2 GM/D5W 50 ML 2 GM/50 ML BAG IVPB ×2 (13:24→20:07)
--- NOTE | 2023-11-05 15:26 | W.PM.PROC2 ---
Procedure Note - Detailed Date of Procedure 11/05/23 Pre-op Diagnosis Hip Fracture Left Femoral Neck Post-op Diagnosis Same Procedure Performed Bipolar endoprosthetic replacement Surgeon Ren Buchanan MD Anesthesia General Indications Pain with a fracture Description of Procedure Patient brought to operating room #8. A general anesthetic was administered. He was sterilely prepped and draped in usual manner. Longitudinal incision made over hip. Dissection carried down to the fascia. Harley type approach using the femoral head and neck dislocated anteriorly. Femoral head measured 53 millimeters, a 53 millimeter bipolar head a frozen. Neck was cut a fingerbreadth all of the lesser trochanter. The femur reamed and broached to accept a size 13. However the Press-Fit did works I dropped down to size 11 and cemented. He had a tight distal canal. A +0 head was chosen along with a 53 millimeter bipolar. This was reduced and found to be very stable. An AP x-ray demonstrated excellent alignment and leg lengths looked good. At this point the wound closed in layers using #5 Ethibond, #2 Vicryl, 2-0 Vicryl and Staple. Patient left the OR in satisfactory condition. Implants Biomet Estimated Blood Loss 500 Complications No immediate complications Condition Stable Disposition PACU [facility] Billing Surgery - Charge Forward: Surgery Billing (Bipolar Hip 33149)
[2023-11-05] MEDS: fentaNYL CITRATE INJ (*CRX) 100 MCG/2 ML VIAL 25 MCG IV PUSH ×4 (16:09→16:49)
--- NOTE | 2023-11-05 17:25 | PC.NURSE ---
Returned from OR via bed. Family at bedside.
[2023-11-05] MEDS: SENNA/DOCUSATE SODIUM TABLET 2 TAB PO (17:46)
[2023-11-05] MEDS: SODIUM CHLORIDE 0.9% IV 1,000 ML 125 ML IV CONT (17:46)
[2023-11-05] MEDS: FAMOTIDINE 20 MG TABLET PO (20:07)
[2023-11-05] MEDS: HYDROcodone/acetaminophen (*CRX) 5-325 MG TABLET 1 TAB PO (20:07)
[2023-11-06 02:57] VITALS: BP 140/79; PULSE 88; RESP 18; TEMP 36.7; O2SAT 96
[2023-11-06] MEDS: ceFAZolin 2 GM/D5W 50 ML 2 GM/50 ML BAG IVPB ×2 (04:43→12:45)
[2023-11-06 05:46] LABS: Anion Gap 3 mmol/L (8-16); Blood Urea Nitrogen 20 mg/dL (9-20); Calcium 8.2 mg/dL (8.4-10.2); Carbon Dioxide 27 mmol/L (22-30); Chloride 108 mmol/L (98-107); Estimated CRCL calculation 32 ml/min; Estimated Glomerular Filt Rate 45; Glucose 144 mg/dL (65-110); Potassium 4.1 mmol/L (3.4-5.0); Sodium 138 mmol/L (137-145)
--- NOTE | 2023-11-06 06:55 | PM.PNORT ---
Progress Note: A&P Assessment and Plan (1) Fracture of femoral neck, left: Code(s): S72.002A - Fracture of unspecified part of neck of left femur, initial encounter for closed fracture Status: Acute Assessment and Plan: Patient is status post bipolar for endoprosthesis for femoral neck fracture left. He has moderate confusion today. He will need placement at this point. Subjective Subjective Date/Time Seen: 11/06/23 06:55 Post Op day: 1 Principal diagnosis: Left Femoral Neck Fracture Interval history: Patient is status post bipolar for femoral neck fracture left. Review of Systems Musculoskeletal: Musculoskeletal: Reports arthralgias and Reports joint swelling Exam Narrative: Patient can wiggle his toes. Dressing is intact. His pain is tolerable. Objective Data Vital Signs Vital Signs: Vital Signs - 24 hr 11/05/23 09:06 11/05/23 09:06 11/05/23 12:41 Temperature 99.5 F Pulse Rate 72 63 Respiratory Rate 18 14 Blood Pressure 128/49 L Pulse Oximetry 100 98 Oxygen Delivery Room Air Room Air Oxygen Flow Rate 11/05/23 15:58 11/05/23 16:15 11/05/23 16:30 Temperature 97.6 F Pulse Rate 73 73 66 Respiratory Rate 10 L 15 17 Blood Pressure 142/66 H 146/76 H 160/68 H Pulse Oximetry 98 95 94 Oxygen Delivery Simple Face Mask Room Air Room Air Oxygen Flow Rate 6 11/05/23 16:45 11/05/23 17:00 11/05/23 17:15 Temperature Pulse Rate 67 74 70 Respiratory Rate 20 12 13 Blood Pressure 157/77 H 159/66 H 160/60 H Pulse Oximetry 98 93 93 Oxygen Delivery Room Air Room Air Room Air Oxygen Flow Rate 11/05/23 17:25 11/05/23 17:25 11/05/23 17:40 Temperature 96.9 F L 97.3 F L Pulse Rate 60 60 61 Respiratory Rate 18 18 18 Blood Pressure 157/62 H 150/63 H Pulse Oximetry 96 96 99 Oxygen Delivery Room Air Oxygen Flow Rate 11/05/23 17:55 11/05/23 18:55 11/05/23 19:01 Temperature 97.8 F 97.7 F 98.1 F Pulse Rate 64 77 82 Respiratory Rate 18 18 17 Blood Pressure 163/69 H 166/68 H 142/61 H Pulse Oximetry 100 97 100 Oxygen Delivery Oxygen Flow Rate 11/05/23 23:00 11/06/23 02:57 Temperature 98.1 F 98.1 F Pulse Rate 81 88 Respiratory Rate 18 18 Blood Pressure 149/50 H 140/79 Pulse Oximetry 99 96 Oxygen Delivery Oxygen Flow Rate Intake/Output Intake/Output: Intake & Output 11/03/23 11/04/23 11/05/23 11/06/23 23:59 23:59 23:59 23:59 Intake Total 2400 1090 Output Total 150 950 Balance 2250 140 Meds/Results Medications: Active Medications Generic Name Dose Route Start Last Admin Trade Name Freq PRN Reason Stop Dose Admin Acetaminophen 1,000 mg 11/05/23 05:11 Acetaminophen 500 Mg Tablet PO Q6H PRN Mild Pain (1-3) or Fever Acetaminophen 650 mg 11/05/23 17:16 Acetaminophen 325 Mg Tablet PO Q6H PRN Mild Pain (1-3) or Fever Hydrocodone Bitart/Acetaminophen 1 tab 11/05/23 17:16 11/05/23 20:07 Hydrocodone/Acetaminophen (*Crx) 5-325 Mg Tablet PO 1 tab Q3H PRN Administration Pain Rated 4-6 Hydrocodone Bitart/Acetaminophen 2 tab 11/05/23 17:16 Hydrocodone/Acetaminophen (*Crx) 7.5-325 Mg Tablet PO Q6H PRN Pain Rated 7-10 Al Hydrox/Mg Hydrox/Simethicone 30 ml 11/05/23 05:11 Mag Hydrox/Al Hydrox/Simeth 30 Ml Udc PO Q6H PRN Indigestion Aspirin 650 mg 11/06/23 09:00 Aspirin 325 Mg Enteric Tablet PO DAILY ERIKA Atorvastatin Calcium 40 mg 11/05/23 09:00 11/05/23 09:05 Atorvastatin 40 Mg Tablet PO Not Given DAILY ERIKA Famotidine 20 mg 11/05/23 21:00 11/05/23 20:07 Famotidine 20 Mg Tablet PO 20 mg Q12HR ERIKA Administration Fentanyl Citrate 25 mcg 11/05/23 12:27 11/05/23 16:49 Fentanyl Citrate Inj (*Crx) 100 Mcg/2 Ml Vial IV PUSH 25 mcg Q2M PRN Administration Pain Hydromorphone HCl 1 mg 11/05/23 04:47 11/05/23 05:27 Hydromorphone Hcl Inj (*Crx) 1 Mg/Ml Syr IV PUSH 1 mg Q3H PRN Administration
--- NOTE | 2023-11-06 07:10 | PCPTNOTE ---
Attempted PT evaluation. Pt sleeping at this time. Per Ortho progress note pt is moderately confused. Giving pt time to wake up with hopes of less confusion later this date. Will follow. RN aware.
--- NOTE | 2023-11-06 07:26 | PM.IMPN ---
Progress Note: A&P Assessment and Plan (1) Fracture of femoral neck, left: Code(s): S72.002A - Fracture of unspecified part of neck of left femur, initial encounter for closed fracture Status: Acute (2) Late effects of cerebrovascular accident: Code(s): I69.90 - Unspecified sequelae of unspecified cerebrovascular disease Status: Acute (3) Essential hypertension: Code(s): I10 - Essential (primary) hypertension Status: Acute (4) Other and unspecified hyperlipidemia: Code(s): E78.5 - Hyperlipidemia, unspecified Status: Acute (5) Stage 3b chronic kidney disease (CKD): Code(s): N18.32 - Chronic kidney disease, stage 3b Status: Acute (6) Weakness: Code(s): R53.1 - Weakness Status: Acute Plan 83-year-old male who presented to the ED after a fall. The fall happened around. Something feeling weak. States she slid to the ground and was not wall however was unable to get up. He laid on the ground until his brother came for her down on the floor and called EMS. displaced fracture of his left hip. X-ray pelvis showed displaced fracture of his left hip. He is admitted for evaluation and management CV IV fluid for lactic acid and lactic acid has already normalized. Be a 2500. Orthopedic consultation has been obtained 11/05 left hip replacement . moderate risk for the planned surgery due to his underlying history of diabetes stroke and chronic kidney disease was discussed with him and his brother at bedside on 11/05 Consult PT OT career development consultant for evaluation and assisting placement Troponin was negative and serial troponin was negative. EKG was reviewed personally and shows chronic left bundle branch block exactly similar compared to older EKG. Chest x-ray with no acute findings fall CT head with no acute findings except for chronic encephalomalacia from previous stroke. DM Patient has history of diabetes His A1c at 5.31 August 2023 hypertension Upon arrival to the ED he was mildly hypertensive hyperlipidemia chronic kidney disease. His chronic kidney disease is stable. SIRS . a workup showed WBC count of 16,000 elevated lactic acid of 2.8 on 11/05 Cultures were obtained. Negative. Mild leukocytosis unclear etiology could be reactive source evident. UA is negative chest x-ray negative will continue to monitor blood culture were obtained in the ED will continue to follow and will monitor off antibiotics. Flu RSV COVID negative May need intermediate replacement Subjective Date/time seen: 11/06/23 07:26 Interval history: Patient is status post bipolar for femoral neck fracture left. Patient is afebrile over the night, blood pressure stable, pulse ox 96-100% on room air, patient cannot ambulate today Exam Narrative: GENERAL: Pleasant, in no acute distress. Well-nourished. - EYES: EOMI. Anicteric. - HENT: Moist mucous membranes. - LUNGS: Clear to auscultation bilaterally, no wheezing, rhonchi, or rales. - CARDIOVASCULAR: Regular rate and rhythm. No murmur. No JVD. - ABDOMEN: Soft, non-tender and non-distended. No palpable masses. - EXTREMITIES: No edema. Peripheral pulses 2+. Non-tender. Left hip range is restricted because of pain, surgical wound is dry and clean - NEUROLOGIC: No focal neurological deficits. CN II-XII grossly intact. - PSYCHIATRIC: Awake, Alert and oriented x 3. Appropriate mood and affect. - SKIN: No rashes or lesions. Warm. - LYMPH: No cervical lymphadenopathy. Objective Data Vital Signs Vital Signs: Vital Signs - 24 hr 11/05/23 09:06 11/05/23 09:06 11/05/23 12:41 Temperature 99.5 F Pulse Rate 72 63 Respiratory Rate 18 14 Blood Pressure 128/49 L Pulse Oximetry 100 98 Oxygen Delivery Room Air Room Air Oxygen Flow Rate 11/05/23 15:58 11/05/23 16:15 11/05/23 16:30 Temperature 97.6 F Pulse Rate 73 73 66 Respiratory Rate 10 L 15 17 Blood Pressure 142/66 H 1
[2023-11-06 07:49] LABS: Basophils Percent Auto 0.3 % (0.2-1.2); Hematocrit 36.9 % (42.0-52.0); Hemoglobin 11.8 g/dL (14.0-18.0); Immature Granulocyte Absolute 0.08 K/mm3 (0.00-0.031); Immature Granulocyte Percent A 0.6 % (0-0.5); Lymphocytes Absolute Auto 0.69 K/mm3 (0.9-3.2); Lymphocytes Percent Auto 5.1 % (18.3-44.2); Mean Corpuscular Hemoglobin 31.5 pg (26-34); Mean Corpuscular Volume 98.4 fl (80-100); Mean Platelet Volume 10.7 fl (7.4-10.4); Monocytes Absolute Auto 0.9 K/mm3 (0.1-0.6); Neutrophils Absolute Auto 11.8 K/mm3 (1.3-6.7); Platelet Count Result 137 k/mm3 (150-375); Red Blood Count 3.75 M/mm3 (4.6-6.20); Red Cell Distribution Width 13.2 % (11.5-14.5); White Blood Count 13.5 K/mm3 (4.5-10.0)
--- NOTE | 2023-11-06 08:01 | WPDANESPN ---
Anes - Prog Note Post-Op Date/Time: 11/06/23 08:01 Cardiovascular status: normal Respiratory status: normal Airway patency: baseline Mental status: baseline Post-Op hydration status: normal Vital Signs: Last Vital Signs Temp 36.7 C 11/06/23 02:57 Pulse 88 11/06/23 02:57 Resp 18 11/06/23 02:57 BP 140/79 11/06/23 02:57 Pulse Ox 96 11/06/23 02:57 O2 Del Method Room Air 11/05/23 17:25 O2 Flow Rate 6 11/05/23 15:58 Pain Score (VAS): 0 I/O: Intake & Output 11/05/23 11/06/23 11/06/23 23:59 07:59 15:59 Intake Total 350 1090 Output Total 150 950 Balance 200 140 Laboratory Tests 11/06/23 04:41 11/05/23 11/06/23 08:49 04:41 WBC 14.7 H Pending RBC 3.81 L Pending Hgb 12.0 L Pending Hct 36.2 L Pending MCV 95.0 Pending MCH 31.5 Pending MCHC 33.1 Pending RDW 13.1 Pending Plt Count 151 Pending MPV 10.2 Pending Immature Gran % (Auto) 0.5 Pending Neut % (Auto) 84.8 H Pending Lymph % (Auto) 7.6 L Pending Morrill % (Auto) 7.0 Pending Eos % (Auto) 0.0 Pending Baso % (Auto) 0.1 L Pending Lymph # (Auto) 1.12 Pending Morrill # (Auto) 1.0 H Pending Eos # (Auto) 0.0 Pending Baso # (Auto) 0.0 Pending Abs Immat Gran (auto) 0.08 H Pending Absolute Neuts (auto) 12.4 H Pending Absolute Nucleated RBC 0.0 Pending Nucleated RBC % 0.0 Pending Sodium 138 138 Potassium 4.2 4.1 Chloride 108 H 108 H Carbon Dioxide 27 27 Anion Gap 3 L 3 L BUN 22 H 20 Creatinine 1.50 H 1.50 H Estim Creat Clear Calc 32 32 Estimated GFR 45 L 45 L Glucose 131 H 144 H Lactic Acid 1.3 Calcium 8.6 8.2 L Magnesium 2.0 Total Bilirubin 1.0 AST 26 ALT 14 Alkaline Phosphatase 54 Total Protein 6.0 L Albumin 3.2 L Microbiology 11/04/23 23:44 Blood Blood Culture - Preliminary 11/04/23 23:44 Blood Blood Culture - Preliminary Post-procedural complaints: none Patient Feedback: Patient satisfied with anesthetic care.
[2023-11-06 09:24] VITALS: PULSE 100
[2023-11-06] MEDS: METOPROLOL SUCCINATE EXT REL 50 MG TABCR PO (09:24)
[2023-11-06] MEDS: ATORVASTATIN 40 MG TABLET PO (09:32)
[2023-11-06] MEDS: PANTOPRAZOLE 40 MG TABLET PO (09:32)
[2023-11-06] MEDS: lisinopriL 10 MG TABLET PO (09:33)
[2023-11-06] MEDS: FAMOTIDINE 20 MG TABLET PO ×2 (09:33→20:28)
[2023-11-06] MEDS: ASPIRIN 325 MG ENTERIC TABLET 650 MG PO (09:33)
[2023-11-06] MEDS: SENNA/DOCUSATE SODIUM TABLET 2 TAB PO ×2 (09:33→16:33)
[2023-11-06] MEDS: polyethylene glycoL 3350 17 GM POWD.PACK PO (09:35)
[2023-11-06] MEDS: traMADol HCL (*CRX) 50 MG TABLET PO (10:24)
[2023-11-06 11:02] VITALS: BP 139/66; PULSE 85; RESP 18; TEMP 36.9; O2SAT 96
[2023-11-06 14:38] VITALS: BP 125/58; PULSE 82; RESP 16; TEMP 36.7; O2SAT 98
[2023-11-06 19:01] VITALS: BP 112/64; PULSE 86; RESP 17; TEMP 36.7; O2SAT 100
[2023-11-06] MEDS: HYDROcodone/acetaminophen (*CRX) 5-325 MG TABLET 1 TAB PO (20:28)
[2023-11-07 04:43] VITALS: BP 133/63; PULSE 72; RESP 17; TEMP 36.4; O2SAT 99
[2023-11-07 06:25] LABS: Basophils Percent Auto 0.3 % (0.2-1.2); Eosinophils Percent Auto 0.3 % (0-4.4); Hematocrit 33.1 % (42.0-52.0); Immature Granulocyte Absolute 0.06 K/mm3 (0.00-0.031); Immature Granulocyte Percent A 0.5 % (0-0.5); Lymphocytes Absolute Auto 0.72 K/mm3 (0.9-3.2); Mean Corpuscular HGB Conc 33.2 g/dl (32-36); Mean Corpuscular Hemoglobin 31.5 pg (26-34); Mean Corpuscular Volume 94.8 fl (80-100); Mean Platelet Volume 9.8 fl (7.4-10.4); Monocytes Absolute Auto 0.8 K/mm3 (0.1-0.6); Monocytes Percent Auto 6.6 % (2.6-8.5); Neutrophils Absolute Auto 10.4 K/mm3 (1.3-6.7); Neutrophils Percent Auto 86.3 % (45.5-73.1); Platelet Count Result 115 k/mm3 (150-375); Red Blood Count 3.49 M/mm3 (4.6-6.20); Red Cell Distribution Width 13.2 % (11.5-14.5); White Blood Count 12.1 K/mm3 (4.5-10.0)
[2023-11-07 08:17] VITALS: RESP 18; O2SAT 99
--- NOTE | 2023-11-07 08:20 | PM.IMPN ---
Progress Note: A&P Assessment and Plan (1) Fracture of femoral neck, left: Code(s): S72.002A - Fracture of unspecified part of neck of left femur, initial encounter for closed fracture Status: Acute (2) Late effects of cerebrovascular accident: Code(s): I69.90 - Unspecified sequelae of unspecified cerebrovascular disease Status: Acute (3) Essential hypertension: Code(s): I10 - Essential (primary) hypertension Status: Acute (4) Other and unspecified hyperlipidemia: Code(s): E78.5 - Hyperlipidemia, unspecified Status: Acute (5) Stage 3b chronic kidney disease (CKD): Code(s): N18.32 - Chronic kidney disease, stage 3b Status: Acute (6) Weakness: Code(s): R53.1 - Weakness Status: Acute Plan 83-year-old male who presented to the ED after a fall. The fall happened around. Something feeling weak. States she slid to the ground and was not wall however was unable to get up. He laid on the ground until his brother came for her down on the floor and called EMS. displaced fracture of his left hip. X-ray pelvis showed displaced fracture of his left hip. He is admitted for evaluation and management CV IV fluid for lactic acid and lactic acid has already normalized. Be a 2500. Orthopedic consultation has been obtained ?Fracture of femoral neck, left: 11/05 left hip replacement .:bipolar for endoprosthesis for femoral neck fracture left. moderate risk for the planned surgery due to his underlying history of diabetes stroke and chronic kidney disease was discussed with him and his brother at bedside on 11/05 Consult PT OT career technical counselor for evaluation and assisting placement Patient has difficulty with ambulation because of general weakness and hip pain Troponin was negative and serial troponin was negative. EKG was reviewed personally and shows chronic left bundle branch block exactly similar compared to older EKG. Chest x-ray with no acute findings fall CT head with no acute findings except for chronic encephalomalacia from previous stroke. DM Patient has history of diabetes His A1c at 5.31 August 2023 hypertension Upon arrival to the ED he was mildly hypertensive hyperlipidemia chronic kidney disease. His chronic kidney disease is stable. SIRS . a workup showed WBC count of 16,000 elevated lactic acid of 2.8 on 11/05 Cultures were obtained. Negative. Mild leukocytosis unclear etiology could be reactive source evident. UA is negative chest x-ray negative will continue to monitor blood culture were obtained in the ED will continue to follow and will monitor off antibiotics. Flu RSV COVID negative Patient will benefit from rehab placement at discharge, patient is living alone at home, unable to ambulate because of general weakness and fever pain. Subjective Date/time seen: 11/07/23 08:20 Interval history: Patient is status post bipolar for femoral neck fracture left d2. Patient still has difficulty to ambulate because of general weakness and severe neck pain with ambulation. Narcotic medication was provided to patient to have patient walk, but patient was found somnolent Meaghan taking narcotic medications. Patient has CKD stage III, GFR above 32, unable to take NSAIDs. patient is afebrile over the night, blood pressure stable, pulse ox 96-100% on room air Exam Narrative: GENERAL: Pleasant, in no acute distress. Well-nourished. - EYES: EOMI. Anicteric. - HENT: Moist mucous membranes. - LUNGS: Clear to auscultation bilaterally, no wheezing, rhonchi, or rales. - CARDIOVASCULAR: Regular rate and rhythm. No murmur. No JVD. - ABDOMEN: Soft, non-tender and non-distended. No palpable masses. - EXTREMITIES: No edema. Peripheral pulses 2+. Non-tender. Left hip range is restricted because of pain, surgical wound is dry and clean - NEUROLOGIC: No focal neurological deficits. CN II-XII grossly intact. - PSYCHIATRIC: Awake, A
[2023-11-07] MEDS: SENNA/DOCUSATE SODIUM TABLET 2 TAB PO ×2 (08:29→16:25)
[2023-11-07] MEDS: PANTOPRAZOLE 40 MG TABLET PO (08:29)
[2023-11-07] MEDS: lisinopriL 10 MG TABLET PO (08:29)
[2023-11-07] MEDS: ASPIRIN 325 MG ENTERIC TABLET 650 MG PO (08:29)
[2023-11-07] MEDS: polyethylene glycoL 3350 17 GM POWD.PACK PO (08:29)
[2023-11-07] MEDS: ATORVASTATIN 40 MG TABLET PO (08:29)
[2023-11-07 08:30] VITALS: PULSE 72
[2023-11-07] MEDS: FAMOTIDINE 20 MG TABLET PO ×2 (08:30→20:49)
[2023-11-07] MEDS: METOPROLOL SUCCINATE EXT REL 50 MG TABCR PO (08:30)
[2023-11-07] MEDS: traMADol HCL (*CRX) 50 MG TABLET PO (08:30)
[2023-11-07 10:47] VITALS: BMI 10.0
--- NOTE | 2023-11-07 11:08 | PC.NURSE ---
On 11/07/23, the student, [Robb Burk], provided care and completed [facility] documentation on this patient. I have reviewed the student's documentation and agree with the findings.
[2023-11-07 14:00] VITALS: BP 138/65; PULSE 88; RESP 18; TEMP 36.6; O2SAT 98
--- NOTE | 2023-11-07 15:48 | WPDURCON ---
Assessment and Plan Assessment and plan (1) Urinary retention: Code(s): R33.9 - Retention of urine, unspecified Status: Acute Assessment and Plan: Postoperative urinary retention. Camilo catheter has been placed. Plan to continue with Camilo for 1 week. Recommend voiding trial be completed at his rehab facility in 1 week. Follow up with Urology as an outpatient as needed if voiding trial is unsuccessful. Begin tamsulosin. Limit narcotics and manage constipation. Urology Consult Note HPI Date Seen: 11/07/23 Requesting Physician: Ron Washburn MD Primary Care Provider: Emily Wallcae APRN Consult Narrative Narrative: Piyush Ayon is a 83 year old male with a history of chronic kidney disease and type 2 diabetes who recently underwent surgery for left hip fracture on 11/05/2023. He had a Camilo catheter postoperatively that was removed on 11/06/2023. He was unable to void and required straight catheterization x3 with >300 cc urine output each time. He was again unable to void today, therefore bladder scan was completed this afternoon with 550 cc. A 16 Italian Camilo catheter was placed with return of 600 cc of clear yellow urine. The patient reports abdominal fullness which has improved. He denies nausea, vomiting, fever, or chills. He reports no prior urologic issues and has never seen a urologist in the past. States he required a Camilo catheter many years ago when he broke his other hip. Prior to admission he had no difficulty voiding. Reported good urinary stream with nocturia x1-2. His creatinine is stable at 1.5. UA is without concern for infection. Review of Systems Review of Systems: All systems reviewed & are unremarkable except as noted in HPI and below PMFSH Past Medical History Medical History (Updated 11/07/23 @ 15:57 by Leslie Ng PA-C) Body mass index (BMI) 20.0-20.9, adult (06/05/19) Cerumen impaction CKD (chronic kidney disease) III Diabetes type 2, controlled Hypertension Impacted cerumen of both ears Incontinence of bowel Left inguinal hernia Lesion of left external ear Low hemoglobin and low hematocrit Recent cerebral hemorrhage Surgical History Surgical History H/O basal cell carcinoma excision H/O colonoscopy H/O colonoscopy History of melanoma excision Family History Family History Mother Carcinoma of colon Patient's mother is Acute myocardial infarction Sibling Family history of type 2 diabetes mellitus Malignant neoplasm of prostate Father Patient's father is Acute myocardial infarction Other Family history of cardiovascular disease Social History Social History Smoking packs per day: 2 Smoking cigarettes per day: 40.0 Years smoked: 4 Smoking pack-years: 8.00 Smoking status: Former smoker Tobacco type: cigarettes Second hand tobacco smoke exposure: No Smoking end date: 09/23/1964 Alcohol intake: never Substance use: never Substance use type: does not use Do You Feel Safe in your Home?: Yes Lack of Transportation: No Lack of Food: Never True Current Housing: I Have Housing Concerned About Future Housing: No Difficulty Paying Gas/Electric Bills: No Difficulty Paying for Meds: No Currently Unemployed: No Education: Bachelor's Degree Difficulty w/ Childcare or Family Care: No Living arrangements: alone Occupation/Education: retired Gender identity (if verbalized by the patient): Male Spiritual care concerns: No Meds Home Medications and Allergies Home Medications Medication Instructions Recorded Confirmed Type blood-glucose meter (OneTouch #1 ea 09/04/19 11/05/23 Rx Verio Flex Meter) blood sugar diagnostic (OneTouch #100 ea 09/07/19 11/05/23 Rx Verio test strips) lancets 33 gauge
[2023-11-07 20:19] VITALS: BP 132/70; PULSE 82; RESP 16; TEMP 37; O2SAT 98
[2023-11-08 04:35] VITALS: BP 134/73; PULSE 88; RESP 16; TEMP 36.9; O2SAT 100
[2023-11-08 08:08] LABS: Basophils Percent Auto 0.3 % (0.2-1.2); Eosinophils Percent Auto 0.2 % (0-4.4); Hemoglobin 10.7 g/dL (14.0-18.0); Immature Granulocyte Absolute 0.07 K/mm3 (0.00-0.031); Immature Granulocyte Percent A 0.6 % (0-0.5); Lymphocytes Absolute Auto 0.65 K/mm3 (0.9-3.2); Lymphocytes Percent Auto 5.3 % (18.3-44.2); Mean Corpuscular HGB Conc 32.4 g/dl (32-36); Mean Corpuscular Volume 95.7 fl (80-100); Mean Platelet Volume 10.3 fl (7.4-10.4); Monocytes Absolute Auto 0.8 K/mm3 (0.1-0.6); Monocytes Percent Auto 6.1 % (2.6-8.5); Neutrophils Absolute Auto 10.7 K/mm3 (1.3-6.7); Neutrophils Percent Auto 87.5 % (45.5-73.1); Platelet Count Result 132 k/mm3 (150-375); Red Blood Count 3.45 M/mm3 (4.6-6.20); Red Cell Distribution Width 13.2 % (11.5-14.5); White Blood Count 12.2 K/mm3 (4.5-10.0)
--- NOTE | 2023-11-08 08:37 | PM.IMPN ---
Progress Note: A&P Assessment and Plan (1) Urinary retention: Code(s): R33.9 - Retention of urine, unspecified Status: Acute (2) Fracture of femoral neck, left: Code(s): S72.002A - Fracture of unspecified part of neck of left femur, initial encounter for closed fracture Status: Acute (3) Late effects of cerebrovascular accident: Code(s): I69.90 - Unspecified sequelae of unspecified cerebrovascular disease Status: Acute (4) Intracranial hemorrhage on right side following injury: Code(s): S06.309A - Unspecified focal traumatic brain injury with loss of consciousness of unspecified duration, initial encounter Status: Acute (5) Essential hypertension: Code(s): I10 - Essential (primary) hypertension Status: Acute (6) Stage 3b chronic kidney disease (CKD): Code(s): N18.32 - Chronic kidney disease, stage 3b Status: Acute Plan 83-year-old male who presented to the ED after a fall.? The fall happened around.? Something feeling weak.? States she slid to the ground and was not wall however was unable to get up.? He laid on the ground until his brother came for her down on the floor and called EMS.? ? ? displaced fracture of his left hip. X-ray pelvis showed displaced fracture of his left hip.? He is admitted for evaluation and management CV IV fluid for lactic acid and lactic acid has already normalized.? Be a 2500.? Orthopedic consultation has been obtained ?Fracture of femoral neck, left: 11/05 left hip replacement .:bipolar for endoprosthesis for femoral neck fracture left. ?moderate risk for the planned surgery due to his underlying history of diabetes stroke and chronic kidney disease was discussed with him and his brother at bedside on 11/05 Consult PT OT body care manager for evaluation and assisting placement Patient has difficulty with ambulation because of general weakness and hip pain Troponin was negative and serial troponin was negative.? EKG was reviewed personally and shows chronic left bundle branch block exactly similar compared to older EKG.? Chest x-ray with no acute findings fall CT head with no acute findings except for chronic encephalomalacia from previous stroke.? DM Patient has history of diabetes His A1c at 5.31 August 2023 hypertension Upon arrival to the ED he was mildly hypertensive Continue lisinopril 10 mg daily p.o., metoprolol 50 mg daily p.o., Blood pressure is controlled within normal limit hyperlipidemia ?chronic kidney disease.? His chronic kidney disease is stable. SIRS . ? a workup showed WBC count of 16,000 elevated lactic acid of 2.8 on 11/05 Cultures were obtained.? Negative.? Mild leukocytosis unclear etiology could be reactive source evident.? UA is negative chest x-ray negative will continue to monitor blood culture were obtained in the ED will continue to follow and will monitor off antibiotics.? Flu RSV COVID negative Urinary retention Appreciate urologist consultation, considers a postop urinary retention Urologist recommend to continue o continue with Camilo for 1 week.? Recommend voiding trial be completed at his rehab facility in 1 week.? Follow up with Urology as an outpatient as needed if voiding trial is unsuccessful.? Begin tamsulosin.? Patient will benefit from rehab placement at discharge, patient is living alone at home, unable to ambulate because of general weakness and fever pain.? Subjective Date/time seen: 11/08/23 08:37 Interval history: Per physical therapist's report, patient still has difficulty to ambulate because of general weakness and severe leg pain with ambulation. patient is afebrile over the night, blood pressure stable, pulse ox 96-100% on room air Exam Narrative: GENERAL: Pleasant, in no acute distress. Moderate malnutrition - EYES: EOMI. Anicteric. - HENT: Moist mucous membranes. - LUNGS: Clear to auscultation bilaterally, no wheezing, rhonchi, or rales. - CARDIOVA
[2023-11-08 09:02] LABS: Anion Gap 2 mmol/L (8-16); Blood Urea Nitrogen 26 mg/dL (9-20); Calcium 8.7 mg/dL (8.4-10.2); Carbon Dioxide 29 mmol/L (22-30); Chloride 108 mmol/L (98-107); Estimated CRCL calculation 34 ml/min; Estimated Glomerular Filt Rate 48; Glucose 130 mg/dL (65-110); Potassium 3.6 mmol/L (3.4-5.0); Sodium 139 mmol/L (137-145)
[2023-11-08 09:13] VITALS: BP 135/65; PULSE 82
[2023-11-08] MEDS: ASPIRIN 325 MG ENTERIC TABLET 650 MG PO (09:14)
[2023-11-08] MEDS: SENNA/DOCUSATE SODIUM TABLET 2 TAB PO ×2 (09:15→16:40)
[2023-11-08] MEDS: FAMOTIDINE 20 MG TABLET PO ×2 (09:15→20:38)
[2023-11-08] MEDS: ATORVASTATIN 40 MG TABLET PO (09:15)
[2023-11-08 09:16] VITALS: PULSE 82
[2023-11-08] MEDS: TAMSULOSIN HCL 0.4 MG CAPSULE PO (09:16)
[2023-11-08] MEDS: METOPROLOL SUCCINATE EXT REL 50 MG TABCR PO (09:16)
[2023-11-08] MEDS: lisinopriL 10 MG TABLET PO (09:16)
[2023-11-08] MEDS: PANTOPRAZOLE 40 MG TABLET PO (09:16)
[2023-11-08] MEDS: polyethylene glycoL 3350 17 GM POWD.PACK PO (09:16)
[2023-11-08 14:00] VITALS: BP 132/68; PULSE 80; RESP 17; TEMP 36.8; O2SAT 100
[2023-11-08 22:04] VITALS: BP 135/64; PULSE 87; RESP 16; TEMP 36.8; O2SAT 98
[2023-11-09 04:40] VITALS: BP 132/62; PULSE 83; RESP 16; TEMP 36.6; O2SAT 99
[2023-11-09] MEDS: ASPIRIN 325 MG ENTERIC TABLET 650 MG PO (08:50)
[2023-11-09 08:51] VITALS: PULSE 90
[2023-11-09] MEDS: lisinopriL 10 MG TABLET PO (08:51)
[2023-11-09] MEDS: FAMOTIDINE 20 MG TABLET PO ×2 (08:51→20:44)
[2023-11-09] MEDS: METOPROLOL SUCCINATE EXT REL 50 MG TABCR PO (08:51)
[2023-11-09] MEDS: ATORVASTATIN 40 MG TABLET PO (08:51)
[2023-11-09] MEDS: SENNA/DOCUSATE SODIUM TABLET 2 TAB PO ×2 (08:51→17:17)
[2023-11-09] MEDS: TAMSULOSIN HCL 0.4 MG CAPSULE PO (08:52)
[2023-11-09] MEDS: PANTOPRAZOLE 40 MG TABLET PO (08:52)
[2023-11-09] MEDS: polyethylene glycoL 3350 17 GM POWD.PACK PO (08:52)
[2023-11-09 09:04] VITALS: O2SAT 100
[2023-11-09 09:30] LABS: Anion Gap 3 mmol/L (8-16); Blood Urea Nitrogen 29 mg/dL (9-20); Calcium 8.3 mg/dL (8.4-10.2); Carbon Dioxide 27 mmol/L (22-30); Chloride 108 mmol/L (98-107); Estimated CRCL calculation 32 ml/min; Estimated Glomerular Filt Rate 45; Glucose 135 mg/dL (65-110); Potassium 3.9 mmol/L (3.4-5.0); Sodium 138 mmol/L (137-145)
--- NOTE | 2023-11-09 11:57 | PM.IMPN ---
Progress Note: A&P Assessment and Plan (1) Urinary retention: Code(s): R33.9 - Retention of urine, unspecified Status: Acute (2) Fracture of femoral neck, left: Code(s): S72.002A - Fracture of unspecified part of neck of left femur, initial encounter for closed fracture Status: Acute (3) Late effects of cerebrovascular accident: Code(s): I69.90 - Unspecified sequelae of unspecified cerebrovascular disease Status: Acute (4) Intracranial hemorrhage on right side following injury: Code(s): S06.309A - Unspecified focal traumatic brain injury with loss of consciousness of unspecified duration, initial encounter Status: Acute (5) Essential hypertension: Code(s): I10 - Essential (primary) hypertension Status: Acute (6) Stage 3b chronic kidney disease (CKD): Code(s): N18.32 - Chronic kidney disease, stage 3b Status: Acute Plan 83-year-old male who presented to the ED after a fall.? The fall happened around.? Something feeling weak.? States she slid to the ground and was not wall however was unable to get up.? He laid on the ground until his brother came for her down on the floor and called EMS.? ? Falll with displaced fracture of left hip. X-ray pelvis showed displaced fracture of his left hip.? He is admitted for evaluation and management CV IV fluid for lactic acid and lactic acid has already normalized.? Be a 2500.? Orthopedic consultation has been obtained ?Fracture of femoral neck, left: 11/05 left hip replacement: Bipolar for endoprosthesis for femoral neck fracture left. ?moderate risk for the planned surgery due to his underlying history of diabetes stroke and chronic kidney disease was discussed with him and his brother at bedside on 11/05 Consult PT OT career development engineer for evaluation and assisting placement Patient has difficulty with ambulation because of general weakness and hip pain Troponin was negative and serial troponin was negative.? EKG was reviewed personally and shows chronic left bundle branch block exactly similar compared to older EKG.? Chest x-ray with no acute findings Fall; Physical deconditioning: CT head with no acute findings except for chronic encephalomalacia from previous stroke. 11/09/23: Physical rehab plans underway DM Patient has history of diabetes His A1c at 5.31 August 2023 Hypertension Upon arrival to the ED he was mildly hypertensive Continue lisinopril 10 mg daily p.o., metoprolol 50 mg daily p.o., Blood pressure is controlled within normal limit Dyslipidemia Chronic kidney disease.? His chronic kidney disease is stable. SIRS . ? a workup showed WBC count of 16,000 elevated lactic acid of 2.8 on 11/05 Cultures were obtained.? Negative.? Mild leukocytosis unclear etiology could be reactive source evident.? UA is negative chest x-ray negative will continue to monitor blood culture were obtained in the ED will continue to follow and will monitor off antibiotics.? Flu RSV COVID negative 11/09/23: Monitor for sepsis Urinary retention Appreciate urologist consultation, considers a postop urinary retention Urologist recommend to continue o continue with [facility] for 1 week.? Recommend voiding trial be completed at his rehab facility in 1 week.? Follow up with Urology as an outpatient as needed if voiding trial is unsuccessful.? Begin tamsulosin.? Protein calorie malnutrition: fortify nutrition Patient will benefit from rehab placement at discharge, patient is living alone at home, unable to ambulate because of general weakness and fever pain.? Time Spent With Patient Time with patient: 25 - 35 minutes Subjective Date/time seen: 11/09/23 11:57 Interval history: Per physical therapist's report, patient still has difficulty to ambulate because of general weakness and severe leg pain with ambulation. Seen and examined; brother is at bedside. Patient is said to have life alert/rescue devices but does not utilize them per s
[2023-11-09 13:40] VITALS: BP 120/63; PULSE 87; RESP 16; TEMP 36.8; O2SAT 98
[2023-11-09] MEDS: SODIUM CHLORIDE 0.9% IV 1,000 ML 75 ML IV CONT (14:28)
--- NOTE | 2023-11-09 19:01 | P.PNOP_ITS ---
Progress Note: A&P Assessment and Plan (1) Fracture of femoral neck, left: Code(s): S72.002A - Fracture of unspecified part of neck of left femur, initial encounter for closed fracture Status: Acute Assessment and Plan: Bipolar for femoral neck fracture. From Orthopedic standpoint, nothing further to be done with Fracture. F/U 2 weeks for sergio out. Subjective Subjective Date/Time Seen: 11/09/23 19:01 Principal diagnosis: Left Femoral Neck Fracture Interval history: S/P Bipolar. Multiple medical problems delaying discharge. Review of Systems Review of Systems: - CONSTITUTIONAL: Denies weight loss, fe dung and chills. - HEENT: Denies changes in vision and he aring - RESPIRATORY: Denies SOB and cough. - CV: Denies palpitations and CP. - GI: Denies abdominal pain, nausea, vom iting and diarrhea. - : Denies dysuria and urinary frequen cy. - MSK: Denies myalgia and joint pain. S ee HPI - SKIN: Denies rash and pruritus. - NEUROLOGICAL: Denies headache and sync ope. - PSYCHIATRIC: Denies recent changes in mood. Denies anxiety and depression. All systems reviewed & are unremarkable except as noted in HPI and below Constitutional: Constitutional: Reports no additional constitutional complaints Eyes: Eyes: Reports no additional eye complaints ENT: Reports system reviewed and no additional complaints, except as do cumented Cardiovascular: Cardiovascular: Reports no additional cardiovascular complaints Respiratory: Respiratory: Reports no additional respiratory complaints Gastrointestinal: Gastrointestinal: Reports no additional gastrointestinal com plaints Musculoskeletal: Musculoskeletal: Reports no additional musculoskeletal complaints Integumentary/Breasts: Skin/Breast: Reports dry skin Neurologic: Reports system reviewed and no additional complaints, except as documented Psychiatric: Psychiatric: Reports no additional psychiatric complaints Exam Narrative: Dressing intact. Objective Data Vital Signs Vital Signs: Vital Signs - 24 hr 11/08/23 22:04 11/09/23 04:40 11/09/23 08:51 Temperature 98.2 F 97.9 F Pulse Rate 87 83 90 Respiratory Rate 16 16 Blood Pressure 135/64 132/62 Pulse Oximetry 98 99 Oxygen Delivery 11/09/23 09:04 11/09/23 08:43 11/09/23 13:40 Temperature 98.2 F Pulse Rate 87 Respiratory Rate 16 Blood Pressure 120/63 Pulse Oximetry 100 98 Oxygen Delivery Room Air Room Air Intake/Output Intake/Output: Intake & Output 11/06/23 11/07/23 11/08/23 11/09/23 23:59 23:59 23:59 23:59 Intake Total 2450 600 1157 1070 Output Total 1250 1350 850 700 Balance 1200 -750 307 370 Meds/Results Medications: Active Medications Generic Name Dose Rou
--- NOTE | 2023-11-09 19:01 | PM.PNORT ---
Progress Note: A&P Assessment and Plan (1) Fracture of femoral neck, left: Code(s): S72.002A - Fracture of unspecified part of neck of left femur, initial encounter for closed fracture Status: Acute Assessment and Plan: Bipolar for femoral neck fracture. From Orthopedic standpoint, nothing further to be done with Fracture. F/U 2 weeks for sergio out. Subjective Subjective Date/Time Seen: 11/09/23 19:01 Principal diagnosis: Left Femoral Neck Fracture Interval history: S/P Bipolar. Multiple medical problems delaying discharge. Review of Systems Review of Systems: - CONSTITUTIONAL: Denies weight loss, fever and chills. - HEENT: Denies changes in vision and hearing - RESPIRATORY: Denies SOB and cough. - CV: Denies palpitations and CP. - GI: Denies abdominal pain, nausea, vomiting and diarrhea. - : Denies dysuria and urinary frequency. - MSK: Denies myalgia and joint pain. See HPI - SKIN: Denies rash and pruritus. - NEUROLOGICAL: Denies headache and syncope. - PSYCHIATRIC: Denies recent changes in mood. Denies anxiety and depression. All systems reviewed & are unremarkable except as noted in HPI and below Constitutional: Constitutional: Reports no additional constitutional complaints Eyes: Eyes: Reports no additional eye complaints ENT: Reports system reviewed and no additional complaints, except as documented Cardiovascular: Cardiovascular: Reports no additional cardiovascular complaints Respiratory: Respiratory: Reports no additional respiratory complaints Gastrointestinal: Gastrointestinal: Reports no additional gastrointestinal complaints Musculoskeletal: Musculoskeletal: Reports no additional musculoskeletal complaints Integumentary/Breasts: Skin/Breast: Reports dry skin Neurologic: Reports system reviewed and no additional complaints, except as documented Psychiatric: Psychiatric: Reports no additional psychiatric complaints Exam Narrative: Dressing intact. Objective Data Vital Signs Vital Signs: Vital Signs - 24 hr 11/08/23 22:04 11/09/23 04:40 11/09/23 08:51 Temperature 98.2 F 97.9 F Pulse Rate 87 83 90 Respiratory Rate 16 16 Blood Pressure 135/64 132/62 Pulse Oximetry 98 99 Oxygen Delivery 11/09/23 09:04 11/09/23 08:43 11/09/23 13:40 Temperature 98.2 F Pulse Rate 87 Respiratory Rate 16 Blood Pressure 120/63 Pulse Oximetry 100 98 Oxygen Delivery Room Air Room Air Intake/Output Intake/Output: Intake & Output 11/06/23 11/07/23 11/08/23 11/09/23 23:59 23:59 23:59 23:59 Intake Total 2450 600 1157 1070 Output Total 1250 1350 850 700 Balance 1200 -750 307 370 Meds/Results Medications: Active Medications Generic Name Dose Route Start Last Admin Trade Name Freq PRN Reason Stop Dose Admin Acetaminophen 650 mg 11/05/23 17:16 Acetaminophen 325 Mg Tablet PO Q6H PRN Mild Pain (1-3) or Fever Hydrocodone Bitart/Acetaminophen 2 tab 11/05/23 17:16 Hydrocodone/Acetaminophen (*Crx) 7.5-325 Mg Tablet PO Q6H PRN Pain Rated 7-10 Al Hydrox/Mg Hydrox/Simethicone 30 ml 11/05/23 05:11 Mag Hydrox/Al Hydrox/Simeth 30 Ml Udc PO Q6H PRN Indigestion Aspirin 650 mg 11/06/23 09:00 11/09/23 08:50 Aspirin 325 Mg Enteric Tablet PO 650 mg DAILY ERIKA Administration Atorvastatin Calcium 40 mg 11/05/23 09:00 11/09/23 08:51 Atorvastatin 40 Mg Tablet PO 40 mg DAILY ERIKA Administration Famotidine 20 mg 11/05/23 21:00 11/09/23 08:51 Famotidine 20 Mg Tablet PO 20 mg Q12HR ERIKA Administration Fentanyl Citrate 25 mcg 11/05/23 12:27 11/05/23 16:49 Fentanyl Citrate Inj (*Crx) 100 Mcg/2 Ml Vial IV PUSH 25 mcg Q2M PRN Administration Pain Hydromorphone HCl 0.5 mg 11/08/23 08:45 Hydromorphone Hcl Inj (*Crx) 1 Mg/Ml Syr IV PUSH Q4H PRN Pain Rated 7-10 Sodium Chloride 1,000 mls @ 75 mls/hr 11/09/23 13:15 11/09/23 14:28 Normal Saline Iv IV
[2023-11-09 20:25] VITALS: BP 148/67; PULSE 87; RESP 18; TEMP 36.2; O2SAT 100
[2023-11-10] MEDS: SODIUM CHLORIDE 0.9% IV 1,000 ML 75 ML IV CONT (04:32)
[2023-11-10 06:00] VITALS: BP 138/74; PULSE 82; RESP 18; TEMP 36.3; O2SAT 100
[2023-11-10 08:30] LABS: Basophils Percent Auto 0.5 % (0.2-1.2); Eosinophils Absolute Auto 0.2 K/mm3 (0-0.3); Hematocrit 31.3 % (42.0-52.0); Immature Granulocyte Absolute 0.07 K/mm3 (0.00-0.031); Immature Granulocyte Percent A 0.8 % (0-0.5); Lymphocytes Absolute Auto 1.12 K/mm3 (0.9-3.2); Lymphocytes Percent Auto 12.7 % (18.3-44.2); Mean Corpuscular HGB Conc 31.9 g/dl (32-36); Mean Corpuscular Hemoglobin 30.8 pg (26-34); Mean Corpuscular Volume 96.3 fl (80-100); Mean Platelet Volume 9.8 fl (7.4-10.4); Monocytes Absolute Auto 0.8 K/mm3 (0.1-0.6); Monocytes Percent Auto 9.1 % (2.6-8.5); Neutrophils Absolute Auto 6.6 K/mm3 (1.3-6.7); Neutrophils Percent Auto 74.9 % (45.5-73.1); Platelet Count Result 188 k/mm3 (150-375); Red Blood Count 3.25 M/mm3 (4.6-6.20); Red Cell Distribution Width 13.2 % (11.5-14.5); White Blood Count 8.8 K/mm3 (4.5-10.0)
[2023-11-10 08:41] LABS: Alanine Aminotransferase 47 U/L (6-50); Alkaline Phosphatase 80 U/L (38-126); Anion Gap 3 mmol/L (8-16); Aspartate Amino Transferase 73 U/L (17-59); Bilirubin,Total 0.9 mg/dL (0.2-1.3); Blood Urea Nitrogen 29 mg/dL (9-20); Calcium 8.1 mg/dL (8.4-10.2); Carbon Dioxide 27 mmol/L (22-30); Chloride 108 mmol/L (98-107); Estimated CRCL calculation 34 ml/min; Estimated Glomerular Filt Rate 48; Glucose 142 mg/dL (65-110); Potassium 3.5 mmol/L (3.4-5.0); Sodium 138 mmol/L (137-145)
--- NOTE | 2023-11-10 09:48 | PCOTNOTE ---
Attempted to see pt for Occupational Therapy, however, pt is currently eating breakfast will attempt at a later time.
[2023-11-10] MEDS: ASPIRIN 325 MG ENTERIC TABLET 650 MG PO (10:22)
[2023-11-10 10:23] VITALS: PULSE 82
[2023-11-10] MEDS: SENNA/DOCUSATE SODIUM TABLET 2 TAB PO ×2 (10:23→17:45)
[2023-11-10] MEDS: FAMOTIDINE 20 MG TABLET PO ×2 (10:23→20:44)
[2023-11-10] MEDS: lisinopriL 10 MG TABLET PO (10:23)
[2023-11-10] MEDS: METOPROLOL SUCCINATE EXT REL 50 MG TABCR PO (10:23)
[2023-11-10] MEDS: PANTOPRAZOLE 40 MG TABLET PO (10:23)
[2023-11-10] MEDS: polyethylene glycoL 3350 17 GM POWD.PACK PO (10:24)
[2023-11-10] MEDS: ATORVASTATIN 40 MG TABLET PO (10:24)
[2023-11-10] MEDS: TAMSULOSIN HCL 0.4 MG CAPSULE PO (10:24)
--- NOTE | 2023-11-10 11:19 | PM.IMPN ---
Progress Note: A&P Assessment and Plan (1) Urinary retention: Code(s): R33.9 - Retention of urine, unspecified Status: Acute (2) Fracture of femoral neck, left: Code(s): S72.002A - Fracture of unspecified part of neck of left femur, initial encounter for closed fracture Status: Acute (3) Late effects of cerebrovascular accident: Code(s): I69.90 - Unspecified sequelae of unspecified cerebrovascular disease Status: Acute (4) Intracranial hemorrhage on right side following injury: Code(s): S06.309A - Unspecified focal traumatic brain injury with loss of consciousness of unspecified duration, initial encounter Status: Acute (5) Essential hypertension: Code(s): I10 - Essential (primary) hypertension Status: Acute (6) Stage 3b chronic kidney disease (CKD): Code(s): N18.32 - Chronic kidney disease, stage 3b Status: Acute Plan 83-year-old male who presented to the ED after a fall.? The fall happened around.? Something feeling weak.? States she slid to the ground and was not wall however was unable to get up.? He laid on the ground until his brother came for her down on the floor and called EMS.? ? Fall with displaced fracture of left hip. X-ray pelvis showed displaced fracture of his left hip.? He is admitted for evaluation and management CV IV fluid for lactic acid and lactic acid has already normalized.? Be a 2500.? Orthopedic consultation has been obtained ?Fracture of femoral neck, left: 11/05 left hip replacement: Bipolar for endoprosthesis for femoral neck fracture left. ?moderate risk for the planned surgery due to his underlying history of diabetes stroke and chronic kidney disease was discussed with him and his brother at bedside on 11/05 Consult PT OT youth career specialist for evaluation and assisting placement Patient has difficulty with ambulation because of general weakness and hip pain Chest pain, improved Troponin was negative and serial troponin was negative.? EKG was reviewed personally and shows chronic left bundle branch block exactly similar compared to older EKG.? Chest x-ray with no acute findings Fall; Physical deconditioning: CT head with no acute findings except for chronic encephalomalacia from previous stroke. 11/09/23: Physical rehab plans underway DM Patient has history of diabetes His A1c at 5.31 August 2023 Hypertension Upon arrival to the ED he was mildly hypertensive Continue lisinopril 10 mg daily p.o., metoprolol 50 mg daily p.o., Blood pressure is controlled within normal limit Dyslipidemia Chronic kidney disease.? His chronic kidney disease is stable. SIRS . ? a workup showed WBC count of 16,000 elevated lactic acid of 2.8 on 11/05 Cultures were obtained.? Negative.? Mild leukocytosis unclear etiology could be reactive source evident.? UA is negative chest x-ray negative will continue to monitor blood culture were obtained in the ED will continue to follow and will monitor off antibiotics.? Flu RSV COVID negative 11/09/23: Monitor for sepsis Urinary retention Appreciate urologist consultation, considers a postop urinary retention Urologist recommend to continue o continue with [facility] for 1 week.? Recommend voiding trial be completed at his rehab facility in 1 week.? Follow up with Urology as an outpatient as needed if voiding trial is unsuccessful.? Begin tamsulosin.? Protein calorie malnutrition: fortify nutrition Patient will benefit from rehab placement at discharge, patient is living alone at home, unable to ambulate because of general weakness and fever pain.? Time Spent With Patient Time with patient: 25 - 35 minutes Subjective Date/time seen: 11/10/23 11:19 Interval history: Per physical therapist's report, patient still has difficulty to ambulate because of general weakness and severe leg pain with ambulation. Seen and examined; brother is at bedside. Patient is said to have life alert/rescue devices but does
[2023-11-10 14:20] VITALS: BP 106/54; PULSE 86; RESP 16; TEMP 36.4; O2SAT 94
[2023-11-10 19:32] VITALS: BP 128/70; PULSE 79; RESP 18; TEMP 36.3; O2SAT 94
[2023-11-11 05:33] LABS: Basophils Percent Auto 0.4 % (0.2-1.2); Eosinophils Absolute Auto 0.3 K/mm3 (0-0.3); Hematocrit 30.8 % (42.0-52.0); Hemoglobin 9.8 g/dL (14.0-18.0); Immature Granulocyte Absolute 0.11 K/mm3 (0.00-0.031); Immature Granulocyte Percent A 1.2 % (0-0.5); Lymphocytes Absolute Auto 0.97 K/mm3 (0.9-3.2); Lymphocytes Percent Auto 10.3 % (18.3-44.2); Mean Corpuscular HGB Conc 31.8 g/dl (32-36); Mean Corpuscular Hemoglobin 30.6 pg (26-34); Mean Corpuscular Volume 96.3 fl (80-100); Mean Platelet Volume 10.1 fl (7.4-10.4); Monocytes Absolute Auto 0.9 K/mm3 (0.1-0.6); Monocytes Percent Auto 9.4 % (2.6-8.5); Neutrophils Absolute Auto 7.2 K/mm3 (1.3-6.7); Neutrophils Percent Auto 75.7 % (45.5-73.1); Platelet Count Result 204 k/mm3 (150-375); White Blood Count 9.5 K/mm3 (4.5-10.0)
[2023-11-11 05:46] LABS: Alanine Aminotransferase 60 U/L (6-50); Albumin Level 2.8 g/dL (3.5-5.1); Alkaline Phosphatase 80 U/L (38-126); Anion Gap 1 mmol/L (8-16); Aspartate Amino Transferase 78 U/L (17-59); Bilirubin,Total 0.9 mg/dL (0.2-1.3); Blood Urea Nitrogen 31 mg/dL (9-20); Calcium 8.1 mg/dL (8.4-10.2); Carbon Dioxide 29 mmol/L (22-30); Chloride 106 mmol/L (98-107); Estimated CRCL calculation 32 ml/min; Estimated Glomerular Filt Rate 45; Glucose 136 mg/dL (65-110); Potassium 3.9 mmol/L (3.4-5.0); Sodium 136 mmol/L (137-145)
[2023-11-11 06:00] VITALS: BP 144/55; PULSE 81; RESP 18; TEMP 36.8; O2SAT 100
--- NOTE | 2023-11-11 07:59 | PM.IMPN ---
Progress Note: A&P Assessment and Plan (1) Urinary retention: Code(s): R33.9 - Retention of urine, unspecified Status: Acute (2) Fracture of femoral neck, left: Code(s): S72.002A - Fracture of unspecified part of neck of left femur, initial encounter for closed fracture Status: Acute (3) Late effects of cerebrovascular accident: Code(s): I69.90 - Unspecified sequelae of unspecified cerebrovascular disease Status: Acute (4) Intracranial hemorrhage on right side following injury: Code(s): S06.309A - Unspecified focal traumatic brain injury with loss of consciousness of unspecified duration, initial encounter Status: Acute (5) Essential hypertension: Code(s): I10 - Essential (primary) hypertension Status: Acute (6) Stage 3b chronic kidney disease (CKD): Code(s): N18.32 - Chronic kidney disease, stage 3b Status: Acute Plan 83-year-old male who presented to the ED after a fall.? The fall happened around.? Something feeling weak.? States she slid to the ground and was not wall however was unable to get up.? He laid on the ground until his brother came for her down on the floor and called EMS.? ? Fall with displaced fracture of left hip. X-ray pelvis showed displaced fracture of his left hip.? He is admitted for evaluation and management CV IV fluid for lactic acid and lactic acid has already normalized.? Be a 2500.? Orthopedic consultation has been obtained ?Fracture of femoral neck, left: 11/05 left hip replacement: Bipolar for endoprosthesis for femoral neck fracture left. ?moderate risk for the planned surgery due to his underlying history of diabetes stroke and chronic kidney disease was discussed with him and his brother at bedside on 11/05 Consult PT OT congregational care pastor for evaluation and assisting placement Patient has difficulty with ambulation because of general weakness and hip pain Chest pain, improved Troponin was negative and serial troponin was negative.? EKG was reviewed personally and shows chronic left bundle branch block exactly similar compared to older EKG.? Chest x-ray with no acute findings Fall; Physical deconditioning: CT head with no acute findings except for chronic encephalomalacia from previous stroke. Physical rehab plans underway DM Patient has history of diabetes His A1c at 5.31 August 2023 Patient has a poor intake, risk of hypoglycemia Chronic patient is not on medication for diabetes Hold metformin and Jardiance. May resume the medications per PCP after re-evaluateion the patient in the office Hypertension Upon arrival to the ED he was mildly hypertensive Continue lisinopril 10 mg daily p.o., metoprolol 50 mg daily p.o., Blood pressure is controlled within normal limit Dyslipidemia Chronic kidney disease.? His chronic kidney disease is stable. SIRS . ? a workup showed WBC count of 16,000 elevated lactic acid of 2.8 on 11/05 Cultures were obtained.? Negative.? Mild leukocytosis unclear etiology could be reactive source evident.? UA is negative chest x-ray negative will continue to monitor blood culture were obtained in the ED will continue to follow and will monitor off antibiotics.? Flu RSV COVID negative 11/09/23: Monitor for sepsis Urinary retention Appreciate urologist consultation, considers a postop urinary retention Urologist recommend to continue o continue with [facility] for 1 week.? Recommend voiding trial be completed at his rehab facility in 1 week.? Follow up with Urology as an outpatient as needed if voiding trial is unsuccessful.? Continue tamsulosin.? Protein calorie malnutrition: fortify nutrition Patient will benefit from rehab placement at discharge, patient is living alone at home, unable to ambulate because of general weakness and fever pain.? Subjective Date/time seen: 11/11/23 07:59 Interval history: I saw exam patient today, patient still has severe pain with ambulation, patient cannot ambulate
[2023-11-11] MEDS: FAMOTIDINE 20 MG TABLET PO ×2 (08:54→21:19)
[2023-11-11] MEDS: TAMSULOSIN HCL 0.4 MG CAPSULE PO (08:54)
[2023-11-11] MEDS: SENNA/DOCUSATE SODIUM TABLET 2 TAB PO ×2 (08:54→16:21)
[2023-11-11] MEDS: ASPIRIN 325 MG ENTERIC TABLET 650 MG PO (08:54)
[2023-11-11] MEDS: PANTOPRAZOLE 40 MG TABLET PO (08:54)
[2023-11-11] MEDS: lisinopriL 10 MG TABLET PO (08:54)
[2023-11-11] MEDS: polyethylene glycoL 3350 17 GM POWD.PACK PO (08:54)
[2023-11-11] MEDS: METOPROLOL SUCCINATE EXT REL 50 MG TABCR PO (08:54)
[2023-11-11] MEDS: ATORVASTATIN 40 MG TABLET PO (08:54)
[2023-11-11] MEDS: SODIUM CHLORIDE 0.9% IV 1,000 ML 75 ML IV CONT (08:56)
[2023-11-11 14:00] VITALS: BP 102/53; PULSE 91; RESP 14; TEMP 37; O2SAT 100
[2023-11-11] MEDS: SILVER NITRATE 1 EA BANDAGE (AQUACEL-AG)(*BKC) 1 EACH TOPICAL (16:21)
--- NOTE | 2023-11-11 16:24 | PM.DS ---
DS: Admitting Diagnosis Discharge Date 11/11/23 Admitting Diagnosis (1) Urinary retention: ?Code(s): R33.9 - Retention of urine, unspecified ?Status:?Acute (2) Fracture of femoral neck, left: ?Code(s): S72.002A - Fracture of unspecified part of neck of left femur, initial encounter for closed fracture ?Status:?Acute (3) Late effects of cerebrovascular accident: ?Code(s): I69.90 - Unspecified sequelae of unspecified cerebrovascular disease ?Status:?Acute (4) Intracranial hemorrhage on right side following injury: ?Code(s): S06.309A - Unspecified focal traumatic brain injury with loss of consciousness of unspecified duration, initial encounter ?Status:?Acute (5) Essential hypertension: ?Code(s): I10 - Essential (primary) hypertension ?Status:?Acute (6) Stage 3b chronic kidney disease (CKD): ?Code(s): N18.32 - Chronic kidney disease, stage 3b ?Status:?Acute DS: Discharge Diagnosis Discharge Diagnosis (1) Urinary retention: Code(s): R33.9 - Retention of urine, unspecified Status: Acute (2) Fracture of femoral neck, left: Code(s): S72.002A - Fracture of unspecified part of neck of left femur, initial encounter for closed fracture Status: Acute (3) Late effects of cerebrovascular accident: Code(s): I69.90 - Unspecified sequelae of unspecified cerebrovascular disease Status: Acute (4) Intracranial hemorrhage on right side following injury: Code(s): S06.309A - Unspecified focal traumatic brain injury with loss of consciousness of unspecified duration, initial encounter Status: Acute (5) Essential hypertension: Code(s): I10 - Essential (primary) hypertension Status: Acute (6) Stage 3b chronic kidney disease (CKD): Code(s): N18.32 - Chronic kidney disease, stage 3b Status: Acute DS: Summary Hospital Course Hospital Course: 83-year-old male who presented to the ED after a fall.? The fall happened around.? Something feeling weak.? States she slid to the ground and was not wall however was unable to get up.? He laid on the ground until his brother came for her down on the floor and called EMS.? ? Fall with displaced fracture of left hip. X-ray pelvis showed displaced fracture of his left hip.? He is admitted for evaluation and management CV IV fluid for lactic acid and lactic acid has already normalized.? Be a 2500.? Orthopedic consultation has been obtained ?Fracture of femoral neck, left: 11/05 left hip replacement: Bipolar for endoprosthesis for femoral neck fracture left. ?moderate risk for the planned surgery due to his underlying history of diabetes stroke and chronic kidney disease was discussed with him and his brother at bedside on 11/05 Consult PT OT career agent for evaluation and assisting placement Patient has difficulty with ambulation because of general weakness and hip pain Chest pain, improved Troponin was negative and serial troponin was negative.? EKG was reviewed personally and shows chronic left bundle branch block exactly similar compared to older EKG.? Chest x-ray with no acute findings Fall; Physical deconditioning: CT head with no acute findings except for chronic encephalomalacia from previous stroke. Physical rehab plans underway DM Patient has history of diabetes His A1c at 5.31 August 2023 Patient has a poor intake, risk of hypoglycemia Chronic patient is not on medication for diabetes Hold metformin and Jardiance. May resume the medications per PCP after re-evaluateion the patient in the office Hypertension Upon arrival to the ED he was mildly hypertensive Continue lisinopril 10 mg daily p.o., metoprolol 50 mg daily p.o., Blood pressure is controlled within normal limit Dyslipidemia Chronic kidney disease.? His chronic kidney disease is stable. SIRS . ? a workup showed WBC count of 16,000 elevated lactic acid of 2.8 on 11/05 Cultures were obtaine
[2023-11-11 20:24] VITALS: BP 118/61; PULSE 97; RESP 18; TEMP 36.1; O2SAT 100
== END 2023-11-11 21:50 | DRG 522 ==
LOC: ANHED 11-05 00:46 → ANH2MED 11-05 01:17
PROVIDERS: Internal Medicine; Orthopaedic Surgery; Admitting Provider Internal Medicine; Emergency Provider Emergency Medicine; PCP Nurse Practitioner Family; Visit Provider Hospitalist
PROC: 0SRS019 Replacement of Left Hip Joint, Femoral Surface with Metal Synthetic Substitute, Cemented, Open Approach (ICD-10-PCS; CPT 27125; principal; 2023-11-05 13:30)
DX: S72.012A Unspecified intracapsular fracture of left femur, initial encounter for closed fracture (principal); E44.0 Moderate protein-calorie malnutrition; W19.XXXA Unspecified fall, initial encounter; E11.22 Type 2 diabetes mellitus with diabetic chronic kidney disease; E78.5 Hyperlipidemia, unspecified; I12.9 Hypertensive chronic kidney disease with stage 1 through stage 4 chronic kidney disease, or unspecified chronic kidney disease; I44.7 Left bundle-branch block, unspecified; G93.89 Other specified disorders of brain; I69.398 Other sequelae of cerebral infarction; R33.8 Other retention of urine; R07.9 Chest pain, unspecified; N18.32 Chronic kidney disease, stage 3b; Z28.21 Immunization not carried out because of patient refusal; Z79.84 Long term (current) use of oral hypoglycemic drugs; Z20.822 Contact with and (suspected) exposure to COVID-19; Z87.891 Personal history of nicotine dependence; Z68.20 Body mass index [BMI] 20.0-20.9, adult
CPT/HCPCS: 36415; 70450; 71045; 73502; 80048; 80053; 80307; 81001; 82550; 83605; 83690; 83735; 83880; 84100; 84443; 84484; 85025; 85610; 85730; 87040; 87637; 93005; 96360; 97110; 97161; 97165; 97530; 97535; 99199; 99285; A9270; C1713; C1776; J0171; J0330; J0690; J1170; J2405; J2704; J3010; J3370; J7030; J7120

== ENCOUNTER 2023-12-22 05:36 | Inpatient (IN) | payer MEDICARE, SELFPAY ==
[2023-12-22] VITALS (24 sets, daily range): BP systolic 95–122; BP diastolic 42–82; PULSE 62–159; RESP 17–25; TEMP 36.4–36.9; O2SAT 97–100; BMI 20.9
--- NOTE | ~2023-12-22 | CT_ITS ---
EXAMINATION: CT cervical spine wo con DATE: 12/22/2023 13:36 INDICATION: Fall. TECHNIQUE: Computed tomography (CT) of the cervical spine was performed without intravenous contrast. Automated exposure control and iterative reconstruction technique were employed. The dose-length pro duct was 193.98 mGy-cm. COMPARISON: None FINDINGS: There is 2 mm retrolisthesis of C3 on C4, C4 on C5, and C5 on C6. Vertebral body heights ar e normal. There is severely decreased disc height from C3-C4 through C6-C7. The following disc levels are specifically discussed: C2-C3: There is moderate bilateral uncovertebral joint osteoarthritis. There is severe bilateral face t joint osteoarthritis. There is mild bilateral neural foraminal stenosis. There is no central canal stenosis. C3-C4: There is severe bilateral uncovertebral joint osteoarthritis. There is moderate bilateral face t joint osteoarthritis. There is mild bilateral neural foraminal stenosis. There is mild central dora l stenosis. C4-C5: There is severe bilateral uncovertebral joint osteoarthritis. There is moderate right and sujata re left facet joint osteoarthritis. There is mild right and moderate left neural foraminal stenosis. There is mild central canal stenosis. C5-C6: There is severe bilateral uncovertebral joint osteoarthritis. There is mild bilateral facet elidia int osteoarthritis. There is mild bilateral neural foraminal stenosis. There is mild central canal st enosis. C6-C7: There is severe bilateral uncovertebral joint osteoarthritis. There is severe right and mild l eft facet joint osteoarthritis. There is mild bilateral neural foraminal stenosis. There is mild cent ral canal stenosis. C7-T1: There is no uncovertebral joint osteoarthritis. There is severe bilateral facet joint osteoart hritis. There is mild bilateral neural foraminal stenosis. There is no central canal stenosis. IMPRESSION: 1. No fracture. 2. Severe cervical spondylosis. Reviewed, dictated and finalized at location E.
--- NOTE | ~2023-12-22 | XR_ITS ---
XR knee LT 3V DATE: 12/22/2023 07:25 INDICATION: Fall. Bilateral knee pain. TECHNIQUE: 3 views including crosstable lateral COMPARISON: None FINDINGS: No fracture or dislocation or joint effusion. No periosteal reaction or bone destruction. J oint spaces appear well preserved. No radiopaque intra-articular loose body or chondral calcinosis. IMPRESSION: No fracture or dislocation or joint effusion Reviewed, dictated and finalized at location A.
--- NOTE | ~2023-12-22 | CT_ITS ---
EXAMINATION: CT brain wo con DATE: 12/22/2023 13:35 INDICATION: Fall TECHNIQUE: Computed tomography (CT) of the head was performed without intravenous contrast. The mA wa s adjusted according to patient size. Iterative reconstruction technique was employed. Exam dose: 60 5.33 mGy-cm total exam DLP. COMPARISON: November 04, 2023 CT brain FINDINGS: Chronic right occipital and right middle cerebral artery territory temporal parietal fronta l infarcts are noted. Bilateral vertebral artery calcification, basilar artery and prominent bilateral carotid siphon inter nal carotid artery calcifications. No intracranial mass lesion or hemorrhage or recent cerebrovascular accident, midline shift or mass e ffect effect is noted. No subdural or epidural hematoma. The mastoid air cells and included paranasal sinuses are normally developed and aerated. No fracture or bone destruction of the cranial vault. IMPRESSION: Chronic right occipital and right temporal, parietal and frontal infarcts Cerebral atherosclerosis No acute intracranial finding Reviewed, dictated and finalized at Location A. Reviewed, dictated and finalized at location A. IMPRESSION: Chronic right occipital and right temporal, parietal and frontal i nfarcts Cerebral atherosclerosis No acute intracranial finding
--- NOTE | ~2023-12-22 | XR_ITS ---
XR knee RT 3V DATE: 12/22/2023 07:25 INDICATION: Fall. Bilateral knee pain. TECHNIQUE: 3 views including crosstable lateral COMPARISON: None FINDINGS: No fracture or dislocation or joint effusion. No periosteal reaction or bone destruction. J oint spaces are well preserved. No radiopaque intra-articular loose body or chondrocalcinosis. IMPRESSION: No significant abnormality Reviewed, dictated and finalized at location A. IMPRESSION: No significant abnormality
--- NOTE | ~2023-12-22 | US_ITS ---
EXAMINATION: US renal BI DATE: 12/23/2023 17:13 INDICATION: REBECA TECHNIQUE: Multiple grayscale and Doppler ultrasound images of the kidneys were obtained. COMPARISON: None. FINDINGS: The right kidney measures 7.3 x 4.0 x 4.3 cm. The left kidney measures 10.0 x 4.9 x 4.5 cm. The kidne ys demonstrate normal parenchymal echogenicity. Simple bilateral renal cysts. Trace left perinephric fluid. There is no hydronephrosis. The bladder is decompressed by a Camilo catheter. IMPRESSION: Unremarkable renal sonogram findings. Reviewed, dictated and finalized at location K.
--- NOTE | ~2023-12-22 | XR_ITS ---
XR chest 1V portable DATE: 12/22/2023 06:53 INDICATION: Atrial fibrillation TECHNIQUE: 2 portable AP chest radiographs on 12/22/2023 at 0632 hours COMPARISON: November 04, 2023 portable AP chest FINDINGS: Moderate bilateral pulmonary hyperinflation. Probable chronic mild interstitial changes at the lung bases. No pulmonary infiltrate or consolidation, pleural effusion or pulmonary vascular congestion or pneumo thorax is detected. Normal heart size. No hilar or mediastinal enlargement. IMPRESSION: Moderate hyperinflation and probable chronic mild interstitial changes at the lung bases Reviewed, dictated and finalized at location A. IMPRESSION: Moderate hyperinflation and probable chronic mild interstitial causey ges at the lung bases
--- NOTE | ~2023-12-22 | US_ITS ---
US venous doppler [facility] DATE: 12/22/2023 09:07 INDICATION: Lower extremity edema. New onset of atrial fibrillation. TECHNIQUE: Real-time and color flow imaging and Doppler analysis of the veins of both lower extremiti es COMPARISON: None FINDINGS: The greater saphenous veins are patent. There is spontaneous and phasic flow and normal aug mentation and color flow signal and normal compression of the deep veins of both lower extremities. IMPRESSION: No evidence of deep venous thrombosis of the lower extremities Reviewed, dictated and finalized at Location A. Reviewed, dictated and finalized at location A.
--- NOTE | 2023-12-22 05:40 | ECG_ITS ---
Measurements Intervals [place] Rate: 147 P: [place]: 0 QRS: -73 QRSD: 128 T: 90 QT: 307 QTc: 481 Interpretive Statements ATRIAL FIBRILLATION WITH RAPID VENTRICULAR RESPONSE LEFT AXIS DEVIATION LEFT BUNDLE BRANCH BLOCK BASELINE ARTIFACT- I, II, AVR ABNORMAL ECG COMPARED TO ECG 11/04/2023 21:45:04 ATRIAL FIBRILLATION NOW PRESENT LEFT-AXIS DEVIATION NOW PRESENT LEFT BUNDLE-BRANCH BLOCK NOW PRESENT Electronically Signed On 12-22-2023 8:18:06 CDT by Ricky Russell D.O.
[2023-12-22] MEDS: METOPROLOL TARTRATE INJ 5 MG/5 ML VIAL IV PUSH ×2 (05:55→06:08)
[2023-12-22 06:02] LABS: Basophils Percent Auto 0.2 % (0.2-1.2); Hematocrit 36.8 % (42.0-52.0); Hemoglobin 11.9 g/dL (14.0-18.0); Immature Granulocyte Absolute 0.16 K/mm3 (0.00-0.031); Immature Granulocyte Percent A 0.9 % (0-0.5); Lymphocytes Absolute Auto 0.45 K/mm3 (0.9-3.2); Lymphocytes Percent Auto 2.7 % (18.3-44.2); Mean Corpuscular HGB Conc 32.3 g/dl (32-36); Mean Corpuscular Hemoglobin 30.7 pg (26-34); Mean Corpuscular Volume 94.8 fl (80-100); Mean Platelet Volume 9.4 fl (7.4-10.4); Monocytes Absolute Auto 0.6 K/mm3 (0.1-0.6); Monocytes Percent Auto 3.6 % (2.6-8.5); Neutrophils Absolute Auto 15.6 K/mm3 (1.3-6.7); Neutrophils Percent Auto 92.6 % (45.5-73.1); Platelet Count Result 400 k/mm3 (150-375); Red Blood Count 3.88 M/mm3 (4.6-6.20); White Blood Count 16.9 K/mm3 (4.5-10.0)
--- NOTE | 2023-12-22 06:13 | ED.FALL ---
HPI - Fall General Chief Complaint: Fall Stated Complaint: fall Time Seen by Provider: 12/22/23 05:48 Source: patient Mode of arrival: EMS Limitations: no limitations History of Present Illness HPI Narrative: Patient presents from a rehab facility as a fall. He notes that he fell onto his bilateral knees while in the bathroom. He was trying to get to his walker and went to use the grab bar but his hand slipped. Denies any headache, chest pain, shortness of breath, abdominal pain, or extremity pain except for mild knee pain bilaterally. EMS does report that they noted his heart rate was elevated in the 130s. Upon arrival to the ED it is noted his Camilo catheter which was placed for urinary retention was falling out. It was removed by the RN and will be replaced. Had left hip surgery approximately 1 month ago per patient. medication list per senior living documentation as follows: Atorvastatin, finasteride, lisinopril, melatonin, metoprolol succinate ER 50 mg daily, multivitamin tabs, pantoprazole, tamsulosin, vitamin-C, polyethylene glycol, stimulant laxative 8.6-50 mg Related Data Home Medications Medication Instructions Recorded Confirmed ascorbic acid (vitamin C) 1,000 mg 1 g PO DAILY 12/05/23 12/22/23 capsule multivitamin 1 tablet PO DAILY 12/05/23 12/22/23 finasteride 5 mg PO DAILY urinary retention 12/22/23 12/22/23 melatonin 3 mg tablet 3 mg PO HS 12/22/23 12/22/23 polyethylene glycol 3350 17 gram 17 g PO PRN PRN Constipation 12/22/23 12/22/23 oral powder packet (Miralax) Allergies Allergy/AdvReac Type Severity Reaction Status Date / Time No Known Allergies Allergy Verified 12/05/23 08:51 [facility] Past Medical History Medical History (Updated 12/23/23 @ 11:17 by Ar Whalen MD) Body mass index (BMI) 20.0-20.9, adult (06/05/19) Cerumen impaction Diabetes type 2, controlled Fracture of unspecified part of neck of left femur, initial encounter for closed fracture Full incontinence of feces Gastroesophageal reflux disease without esophagitis Hyperlipidemia Hypertension Impacted cerumen of both ears Incontinence of bowel Insomnia Left inguinal hernia Lesion of left external ear Low hemoglobin and low hematocrit Recent cerebral hemorrhage mutifocal intraparenchymal hemorrhage involving right BG, right frontal/temporal/parietal/occipital lobes 12/07/18 Stage 3b chronic kidney disease (CKD) Traumatic hemorrhage of cerebrum Urinary retention Vitamin deficiency, unspecified Surgical History Surgical History (Updated 12/24/23 @ 00:57 by Raissa Delaney MD) H/O basal cell carcinoma excision H/O colonoscopy H/O colonoscopy History of hip surgery 11/05/23- left bipolar hip; at [facility] ; Dr Buchanan History of melanoma excision Family History Family History Mother Carcinoma of colon Patient's mother is Acute myocardial infarction Sibling Family history of type 2 diabetes mellitus Malignant neoplasm of prostate Father Patient's father is Acute myocardial infarction Other Family history of cardiovascular disease Social History Social History Social History: Full Code per facility documentation Smoking packs per day: 2 Smoking cigarettes per day: 40.0 Years smoked: 4 Smoking pack-years: 8.00 Smoking status: Former smoker Tobacco type: cigarettes Second hand tobacco smoke exposure: No Alcohol intake: never Substance use: never Substance use type: does not use Do You Feel Safe in your Home?: Yes Lack of Transportation: No Lack of Food: Never True Current Housing: I Have Housing Concerned About Future Housing: No Difficulty Paying Gas/Electric Bills: No Difficulty Paying for Meds: No Currently Unemployed: No Education: High School Diploma/GED Difficulty w/ Childcare or Family Care: No Living arrangements:
[2023-12-22 06:20] LABS: INR 1.2; Prothrombin Time 15.5 Seconds (11.1-14.7)
[2023-12-22 06:28] LABS: Alanine Aminotransferase 30 U/L (6-50)
[2023-12-22 06:30] LABS: Albumin Level 3.7 g/dL (3.5-5.1); Alkaline Phosphatase 122 U/L (38-126); Anion Gap 21 mmol/L (4-12); Aspartate Amino Transferase 47 U/L (17-59); Bilirubin,Total 0.7 mg/dL (0.2-1.3); Blood Urea Nitrogen 31 mg/dL (9-20); Calcium 9.2 mg/dL (8.4-10.2); Carbon Dioxide 13 mmol/L (22-30); Chloride 102 mmol/L (98-107); Estimated CRCL calculation 20 ml/min; Estimated Glomerular Filt Rate 25; Glucose 175 mg/dL (65-110); Lipase 60 U/L (23-300); Potassium 4.2 mmol/L (3.4-5.0); Sodium 136 mmol/L (137-145); Troponin I 0.037 ng/mL (0.000-0.034)
[2023-12-22 06:38] LABS: Appearance Urine Cloudy (Clear); Bacteria Urine 4+ /hpf; Bilirubin Urine Negative (Negative); Blood Urine 2+ (Negative); Color Urine Yellow (Yellow); Glucose Urine UA Negative (Negative); Ketones Urine Trace mg/dL (Negative); Leukocyte Esterase Ur 2+ LEU/UL (Negative); Nitrate Urine Negative (Negative); Non Pathogenic Casts 0-2; Protein Urine 2+ mg/dL (Negative); Specific Grav Ur 1.012 (1.001-1.035); Squamous Epithelial Cell Urine None Seen /hpf (Few); Urobilinogen Urine 0.2 mg/dL (<2.0); WBC Urine >100 /hpf (0-3); pH Urine 5.5 (5.0-9.0)
[2023-12-22 06:42] LABS: Crenated RBC 2+; Platelet Estimate Adequate (Adequate); Schistocytes Rare
[2023-12-22 06:45] LABS: Add Urine Microscopic? YES
[2023-12-22] MEDS: METOPROLOL TARTRATE 50 MG TAB 25 MG PO (06:58)
[2023-12-22] MEDS: ASPIRIN 81 MG CHEWABLE TABLET 324 MG PO (09:12)
[2023-12-22 09:25] LABS: Lactic Acid Reflex 2.4 mmol/L (0.7-2.0)
[2023-12-22] MEDS: SODIUM CHLORIDE 0.9% IV 1,000 ML 999 ML IV CONT (09:26)
[2023-12-22 09:33] LABS: NT Pro B Type Natriuretic Pept 9180 pg/mL (19.9-100)
--- NOTE | 2023-12-22 11:46 | PM.IMHP ---
H&P: HPI History of Present Illness Date/Time: 12/22/23 11:46 Chief Complaint: Fall Narrative: 83yo male with DM, htn, hx of hemorrhagic CVA, CKD and urine retention with chronic Camilo here for a fall. Patient presents to the emergency room on 11/05/2023 after a fall and found to have acute subcapital fracture of the proximal left femoral neck. He underwent bipolar endoprosthetic replacement 11/05/23. During hospitalization was found to have postoperative urine retention. He has underlying CKD with creatinine running 1.5-1.8 range. He follows with Nephrology for this. Creatinine during his hospitalization remained stable 1.4-1.6 range. Patient was discharged on 11/11/2023 with chronic indwelling Camilo catheter to [facility]. Patient did well with therapy but did not progress well enough to return home and was discharged to assisted facility. He did have a voiding trial at [facility] that was unsuccessful. Patient sent to [place] then to [facility] in [place] and has been there since 12/13/2023. Patient states the Camilo catheter was changed about a week ago. There he has been doing well. Walking with a walker about 100 ft. He has been eating normally. Patient is alert and oriented x4 but does have some difficulty providing a detailed history. He did have trouble voiding after catheter was replaced 1 week ago. There would be urine in the Camilo bag but patient still felt that his bladder still felt full. He has been having a cough which seems to be more chronic. He also has complaints of diarrhea alternating with constipation with his last bowel movement 1-2 days ago. There has been no fever, chills or diaphoresis. No chest pain, shortness of breath or palpitations. No nausea or vomiting. He does mention that he has been on antibiotics currently for UTI. Due to the fullness of his bladder, patient was up at 3:00 a.m. this morning walked to the bathroom. He sat on the toilet but no bowel movements. He did strain. When he got up to get his walker, he did fall. No loss of consciousness. No head injury. Nursing was called and patient was gotten up to the bed. EMS was called and patient was brought to the emergency room for evaluation. In the Emergency Room, he was afebrile. Blood pressure was soft at 95/57 with a pulse of 159 and respiratory rate of 25. He was 100% on room air. White count was 17 K. Serum bicarb was 13 with an anion gap of 21. Lactic 2.4. BUN was 31 with a creatinine of 2.5. LFTs normal. Troponin was elevated on admission and has climbed to 1.7. BNP was 9180. Urinalysis was consistent with UTI. EKG showed atrial fibrillation with RVR rate of 147 with left bundle branch block. 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 Knee x-ray showed no fractures, dislocations or joint effusions. Lower extremity venous Dopplers negative for DVT. Metoprolol IV given and converted to normal sinus rhythm. ASA given. He was admitted for further care. Review of Systems Review of Systems: All systems reviewed & are unremarkable except as noted in HPI and below PMFSH Past Medical History Medical History Body mass index (BMI) 20.0-20.9, adult (06/05/19) Cerumen impaction Diabetes type 2, controlled Fracture of unspecified part of neck of left femur, initial encounter for closed fracture Full incontinence of feces Gastroesophageal reflux disease without esophagitis Hyperlipidemia Hypertension Impacted cerumen of both ears Incontinence of bowel Insomnia Left inguinal hernia Lesion of left external ear Low hemoglobin and low hematocrit Recent cerebral hemorrhage mutifocal intraparenchymal hemorrhage involving right BG, right frontal/temporal/parietal/occipital lobes 12/07/18 Stage 3b chronic kidney disease (CKD) Traumatic hemorrhage of cerebrum Urinary retention Vitamin deficiency, unspecified Surgical History Surgical
--- NOTE | 2023-12-22 12:07 | ECG_ITS ---
Measurements Intervals [place] Rate: 67 P: 82 ID: [id number] QRS: -67 QRSD: 118 T: -64 QT: 441 QTc: 467 Interpretive Statements SINUS RHYTHM MARKED LEFT AXIS DEVIATION [QRS AXIS < -30] PREVIOUS ANTERIOR AND PREVIOUS INFERIOR INFARCTION ABNORMAL ECG WARNING: DATA QUALITY MAY AFFECT INTERPRETATION COMPARED TO ECG 12/22/2023 05:45:30 SINUS RHYTHM NOW PRESENT/REPLACES ATRIAL FIBRILLATION COMPLETE LEFT BUNDLE BRANCH BLOCK IS NO LONGER SEEN AND APPEARS TO HAVE BEEN RATE RELATED Electronically Signed On 12-23-2023 12:50:38 CDT by Bill Morillo M.D.
[2023-12-22 12:11] LABS: Reflex Lactic Acid Yes or No Add Lactic
[2023-12-22 12:46] LABS: Lactic Acid 1.4 mmol/L (0.7-2.0)
--- NOTE | 2023-12-22 14:55 | PM.CNCAR ---
Assessment and Plan Assessment and plan (1) Atrial fibrillation with RVR: Code(s): I48.91 - Unspecified atrial fibrillation Status: Acute Assessment and Plan: New onset atrial fibrillation with rapid ventricular response currently sinus rhythm after IV metoprolol. Nonspecific rate dependent bundle-branch block noted. Continue metoprolol tartrate 12.5 mg twice daily. Up titrate as tolerated and as BP permits. Unable to initiate systemic anticoagulation given his recurrent falls, history of intraparenchymal hemorrhage which to precise details remain unclear whether this was a traumatic event or spontaneous as he was found on the ground. Patient denies following which is incongruent with the history as documented. Not an anticoagulation candidate at this time given the above fall risk, history of cerebral intraparenchymal hemorrhage. Patient remains in elevated risk for hemorrhagic and embolic stroke complications. Patient has multiple comorbidities as a high risk for serious life-threatening complications in this regard. Patient remains very ill, prognosis guarded. Discussed with patient at length and with the hospitalist service. All questions answered to his satisfaction. Continue telemetry. Will review 2D echocardiogram when available. (2) Non-ST elevation OR (NSTEMI): Code(s): I21.4 - Non-ST elevation (NSTEMI) myocardial infarction Status: Acute Assessment and Plan: Patient denies prior known history of CAD or myocardial infarction and does not present with symptoms suggestive of angina. However, serial troponins evaluated with significant upward trend most recently 5.5. Patient remains asymptomatic in this regard. ECG consistent with prior anteroseptal infarct which is not new compared to prior tracings. Recommend initiation of aspirin 81 mg daily, continuation of atorvastatin 40 mg daily. Discussed with patient at length although his ability to fully appreciate our discussion is questionable. At this time, patient is not a reasonable candidate for invasive angiography in light of acute on chronic kidney injury, history of intracerebral hemorrhage which is status safety of at least dual antiplatelet therapy and or systemic anticoagulation remains highly questionable. Conservative management at this time particularly given his asymptomatic status in this regard is most appropriate. Repeat 2D echo cardiac to assess LV function, wall motion abnormalities, valve pathology pulmonary pressures. Continue supportive care particular in light of acute kidney injury, urinary tract infection clinical evidence for sepsis. The fact he continues to have elevation troponins highly concerning suggestive obstructive CAD although he remains asymptomatic in this regard. He is not a candidate for noninvasive ischemic workup at present until he is further stabilized. Recommendation to follow, prognosis guarded. (3) Sepsis: Code(s): A41.9 - Sepsis, unspecified organism Status: Acute Assessment and Plan: Management per primary service. As above, patient present with obstructive uropathy with acute on chronic kidney injury with evidence of UTI. Continue ceftriaxone. Hold off on antihypertensives at this time. Continu (4) Acute kidney injury superimposed on chronic kidney disease: Code(s): N17.9 - Acute kidney failure, unspecified; N18.9 - Chronic kidney disease, unspecified Status: Acute Assessment and Plan: As above, evidence for obstructive uropathy as well as UTI acute kidney injury superimposed on chronic kidney disease stage 3. Will need to monitor renal function very closely. Discussed with patient risk for further deterioration in renal function with IV contrast load for example is invasive angiography at this time and not be advised. Check CK level given fall to exclude rhabdomyolysis. Further management per primary service. (5) History of intracranial hemorrhage: Code(s): Z
[2023-12-22] MEDS: PANTOPRAZOLE 40 MG TABLET PO (15:31)
[2023-12-22 17:23] LABS: Complement C3 98 mg/dL (88-165)
[2023-12-22 17:28] LABS: LDL Cholesterol Direct 35 mg/dL
[2023-12-22 17:36] LABS: Cholesterol 78 mg/dL (0-200); HDL Direct 42 mg/dL; Triglycerides 43 mg/dL (<150)
[2023-12-22 17:41] LABS: Creatine Kinase 10065 U/L (55-170)
[2023-12-22] MEDS: SODIUM CHLORIDE 0.9% IV 1,000 ML 150 ML IV CONT (20:38)
[2023-12-22] MEDS: METOPROLOL TARTRATE 12.5 MG TABLET PO (20:38)
[2023-12-22] MEDS: MELATONIN 3 MG TABLET PO (20:38)
[2023-12-23] VITALS (18 sets, daily range): BP systolic 100–128; BP diastolic 46–56; PULSE 60–85; RESP 18–20; TEMP 36.1–36.4; O2SAT 99–100
--- NOTE | 2023-12-23 | ECHO_ITS ---
Patient Info Name: Piyush Ayon Age: 83 years : 1940 Gender: Male Ht: 72 in Wt: 154 lbs BSA: 1.88 m2 HR: 63 bpm BP: 100 / 46 mmHg Heart Rhythm: Sinus Rhythm Technical Quality: Fair Exam Date: 12/23/2023 9:28 AM Exam Location: Echo Lab Patient Status: Inpatient Admit Date: 12/23/2023 Staff Ordering Physician: Ar Whalen MD Buzzsaw Operator Helper: Michelle Mason RDCS Attending Provider: Ar Whalen MD Exam Type: CA echo doppler color flow Study Info Indications - nstemi Complete two-dimensional, color flow and Doppler transthoracic echocardiogram is performed. Summary 1. Complete two-dimensional, color flow and Doppler transthoracic echocardiogram is performed. 2. Left ventricular chamber dimension is normal. 3. Left ventricular systolic function is normal, estimated at 50-55% with akinesis of the apex and apical septum. No thrombus identified, however, unable to exclude LV thrombus secondary to heavy trabeculation in certain views. 4. There is no increased left ventricular wall thickness. 5. The left ventricular diastolic function is grade II diastolic dysfunction. 6. There is no aortic valve stenosis. 7. There is trace tricuspid valve regurgitation. 8. No pulmonary hypertension, estimated pulmonary arterial systolic pressure is 25 mmHg. 9. There is trace mitral valve regurgitation. Left Ventricle Left ventricular chamber dimension is normal. Left ventricular systolic function is normal, estimated at 50-55% with akinesis of the apex and apical septum. No thrombus identified, however, unable to exclude LV thrombus secondary to heavy trabeculation in certain views. There is no increased left ventricular wall thickness. The left ventricular diastolic function is grade II diastolic dysfunction. Right Ventricle Right ventricular chamber dimension is normal. Right ventricular systolic function is normal. Left Atria Left atrial chamber dimension is mildly enlarged. Right Atria Right atrial chamber dimension is normal. Aortic Valve The aortic valve is not well visualized. There is no aortic valve stenosis. There is no aortic valve regurgitation. Pulmonic Valve The pulmonic valve is not well visualized. Mitral Valve The mitral valve has thickened leaflets. There is trace mitral valve regurgitation. The mitral valve annulus is moderately calcified. Tricuspid Valve The tricuspid valve leaflets are normal. There is trace tricuspid valve regurgitation. No pulmonary hypertension, estimated pulmonary arterial systolic pressure is 25 mmHg. No tricuspid valve vegetation visualized. Pericardium/Pleural The pericardium appears normal. There is no pericardial effusion. Inferior Vena Cava Normal inferior vena cava with >50% collapse upon inspiration consistent with normal right atrial pressure, 5 mmHg. Aorta The aortic root size at the sinus of Valsalva is normal. There is mild aortic atherosclerosis. Left Ventricular Outflow Tract Name Value Normal LVOT 2D LVOT Diameter 2.0 cm LVOT Doppler LVOT Peak Gradient 3 mmHg LVOT Mean Gradient 2 mmHg LVOT VTI 19 cm LVOT VTI/AV VTI Rat
[2023-12-23] MEDS: SODIUM CHLORIDE 0.9% IV 1,000 ML 150 ML IV CONT ×3 (03:10→21:09)
[2023-12-23 03:46] LABS: Creatinine Urine 118.9 mg/dL
[2023-12-23 03:47] LABS: Sodium Urine Random 42 meq/L
[2023-12-23 04:30] LABS: Eosinophil Urine None Seen % (None Seen)
[2023-12-23 04:31] LABS: Urine Eos QC 2nd Tech Confirmed
[2023-12-23 04:43] LABS: Basophils Percent Auto 0.3 % (0.2-1.2); Eosinophils Absolute Auto 0.1 K/mm3 (0-0.3); Eosinophils Percent Auto 1.4 % (0-4.4); Hematocrit 29.8 % (42.0-52.0); Hemoglobin 9.7 g/dL (14.0-18.0); Immature Granulocyte Absolute 0.07 K/mm3 (0.00-0.031); Immature Granulocyte Percent A 0.7 % (0-0.5); Lymphocytes Absolute Auto 1.13 K/mm3 (0.9-3.2); Lymphocytes Percent Auto 11.9 % (18.3-44.2); Mean Corpuscular HGB Conc 32.6 g/dl (32-36); Mean Corpuscular Hemoglobin 30.5 pg (26-34); Mean Corpuscular Volume 93.7 fl (80-100); Mean Platelet Volume 9.7 fl (7.4-10.4); Monocytes Absolute Auto 0.7 K/mm3 (0.1-0.6); Monocytes Percent Auto 6.8 % (2.6-8.5); Neutrophils Absolute Auto 7.5 K/mm3 (1.3-6.7); Neutrophils Percent Auto 78.9 % (45.5-73.1); Platelet Count Result 298 k/mm3 (150-375); Red Blood Count 3.18 M/mm3 (4.6-6.20); Red Cell Distribution Width 14.3 % (11.5-14.5); White Blood Count 9.5 K/mm3 (4.5-10.0)
[2023-12-23 05:07] LABS: Alanine Aminotransferase 47 U/L (6-50); Albumin Level 2.6 g/dL (3.5-5.1); Alkaline Phosphatase 80 U/L (38-126); Anion Gap 6 mmol/L (4-12); Aspartate Amino Transferase 251 U/L (17-59); Bilirubin,Total 0.4 mg/dL (0.2-1.3); Blood Urea Nitrogen 30 mg/dL (9-20); Calcium 7.8 mg/dL (8.4-10.2); Carbon Dioxide 23 mmol/L (22-30); Chloride 108 mmol/L (98-107); Estimated CRCL calculation 25 ml/min; Estimated Glomerular Filt Rate 30; Glucose 96 mg/dL (65-110); Magnesium 2.3 mg/dL (1.6-2.3); Phosphorus 3.4 mg/dL (2.5-4.5); Potassium 3.3 mmol/L (3.4-5.0); Sodium 137 mmol/L (137-145)
[2023-12-23 05:57] LABS: Creatine Kinase 10416 U/L (55-170)
[2023-12-23] MEDS: cefTRIAXone 2 GM/NS 100 ML 2 GM/100 ML BAG IVPB (06:52)
--- NOTE | 2023-12-23 07:28 | ECG_ITS ---
Measurements Intervals [place] Rate: 65 P: 63 CT: 156 QRS: -65 QRSD: 114 T: -32 QT: 422 QTc: 442 Interpretive Statements SINUS RHYTHM INFERIOR MYOCARDIAL INFARCTION , PROBABLY OLD [40+ ms Q WAVE AND/OR ST/T ABNORMALITY IN II/aVF] ANTEROSEPTAL MYOCARDIAL INFARCTION , OF INDETERMINATE AGE [40+ ms Q WAVE IN V1-V4] MODERATE T-WAVE ABNORMALITY, CONSIDER LATERAL ISCHEMIA [-0.1+ mV T WAVE IN I/aVL/V5/V6] ABNORMAL ECG COMPARED TO ECG 12/22/2023 12:07:57 NO SIGNIFICANT CHANGES Electronically Signed On 12-23-2023 13:13:45 CDT by Bill Morillo M.D.
[2023-12-23] MEDS: PANTOPRAZOLE 40 MG TABLET PO (09:26)
[2023-12-23] MEDS: METOPROLOL TARTRATE 12.5 MG TABLET PO ×2 (09:26→21:10)
[2023-12-23] MEDS: MULTIVITAMINS THERAPEUTIC TAB (*BKC) 1 TABLET PO (09:26)
[2023-12-23] MEDS: ASCORBIC ACID 500 MG TABLET 1000 MG PO (09:26)
[2023-12-23] MEDS: POTASSIUM CHLORIDE 20 MEQ PACKET (FOR LIQUID) PO (09:27)
[2023-12-23] MEDS: ASPIRIN 81 MG ENTERIC TABLET PO (09:32)
--- NOTE | 2023-12-23 11:13 | PM.IMPN ---
Progress Note: A&P Assessment and Plan (1) Sepsis: Code(s): A41.9 - Sepsis, unspecified organism Status: Acute Assessment and Plan: Sepsis present on admission with REBECA, tachycardia, lactic acidosis and HoTN. Treated with some IV fluids but limited due to the elevated BNP and pedal edema. Lactic acid improved from 2.4 -> 1,4 CXR showing possible ILD but could be pulm edema. Source is probably complicated UTI given the abnormal UA with recent Camilo exchange. PNA felt less likely UCx pending BCx pending. Continue Rocephin (2) Non-ST elevation [place] (NSTEMI): Code(s): I21.4 - Non-ST elevation (NSTEMI) myocardial infarction Status: Acute Assessment and Plan: EKG showing left BBB with AFib/RVR. This is a new findings. Probably a rate related BBB He converted to NSR with metoprolol treatment. Troponin climbing to 12 Spoke with Cardiology who recommended holding on Heparin drip given his hx of of spontaneous cerebral hemorrhage. He does have pedal edema from unclear etiology. Doppler negative for DVT. Consider CHF. LDL 35, HDL 42. Continue baby ASA and Metoprolol. Lipitor stopped due to rhabdomyolysis Echo pending (3) Rhabdomyolysis: Code(s): M62.82 - Rhabdomyolysis Status: Acute Assessment and Plan: Patient with 2+ blood and 11-20 RBC with TCK 10K. Cr was 2.5 on admission IV fluids started again at higher rate Repeat Cr better at 2.1 and TCK about the same Continue IV fluids. Lipitor stopped. (4) Atrial fibrillation with RVR: Code(s): I48.91 - Unspecified atrial fibrillation Status: Acute Assessment and Plan: Patient presents with AFib/RVR which could be related to sepsis. [id number] score elevated to at least 6. Holding anticoagulation after discussion with Cardiology Treat sepsis as above Monitor on tele (5) UTI (urinary tract infection): Code(s): N39.0 - Urinary tract infection, site not specified Status: Acute Assessment and Plan: UA is consistent with UTI. UCx collected. Rocephin started UCx pending. Follow up on UCx results. (6) Fall: Code(s): W19.XXXA - Unspecified fall, initial encounter Status: Acute Assessment and Plan: Patient fell and denies head injury but hx somewhat unreliable. 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 Cr 2.5 here felt related to urinary obstruction from Camilo poorly placed given the patient's symptoms and rhabdomyolysis. Camilo replaced in ED and his lower abdominal symptoms have resolved Renal US pending. Follow. (8) Left bundle branch block (LBBB): Code(s): I44.7 - Left bundle-branch block, unspecified Status: Acute Assessment and Plan: As above (9) Essential hypertension: Code(s): I10 - Essential (primary) hypertension Status: Acute Assessment and Plan: BP soft on admisison but better with IV fluids. Monitor closely. Plan DVT prophylaxis - SCD Code status - full Subjective Date/time seen: 12/23/23 11:13 Interval history: 83yo male with DM, htn, hx of hemorrhagic CVA, CKD and urine retention with chronic Camilo here for a fall.?? Patient unsure how long he was down on the floor. No CP or SOB. No n/v. Brother in the room and he was updated. Exam Narrative: AF 97.5 111/56 75 18 99% ra Gen - pale appearing male in NARD Chest - left base crackles o/w clear CV - RRR. S1-S2. Tele showing PVCs Abd - soft, NT/ND - Camilo secured draining clear yellow urine Ext - 2+ pitting pedal edema Psych - normal mood a
[2023-12-23] MEDS: MELATONIN 3 MG TABLET PO (21:10)
[2023-12-24] VITALS (21 sets, daily range): BP systolic 110–140; BP diastolic 54–74; PULSE 64–89; RESP 16–20; TEMP 36.1–36.6; O2SAT 95–100
[2023-12-24 05:14] LABS: Basophils Absolute Auto 0.1 K/mm3 (0.0-0.1); Basophils Percent Auto 0.6 % (0.2-1.2); Eosinophils Absolute Auto 0.2 K/mm3 (0-0.3); Eosinophils Percent Auto 2.6 % (0-4.4); Hematocrit 29.7 % (42.0-52.0); Hemoglobin 9.3 g/dL (14.0-18.0); Immature Granulocyte Absolute 0.06 K/mm3 (0.00-0.031); Immature Granulocyte Percent A 0.7 % (0-0.5); Lymphocytes Absolute Auto 1.02 K/mm3 (0.9-3.2); Lymphocytes Percent Auto 12.7 % (18.3-44.2); Mean Corpuscular HGB Conc 31.3 g/dl (32-36); Mean Corpuscular Hemoglobin 30.4 pg (26-34); Mean Corpuscular Volume 97.1 fl (80-100); Mean Platelet Volume 9.8 fl (7.4-10.4); Monocytes Absolute Auto 0.5 K/mm3 (0.1-0.6); Monocytes Percent Auto 6.5 % (2.6-8.5); Neutrophils Absolute Auto 6.2 K/mm3 (1.3-6.7); Neutrophils Percent Auto 76.9 % (45.5-73.1); Platelet Count Result 301 k/mm3 (150-375); Red Blood Count 3.06 M/mm3 (4.6-6.20); Red Cell Distribution Width 14.4 % (11.5-14.5)
[2023-12-24 05:31] LABS: Alanine Aminotransferase 46 U/L (6-50); Albumin Level 2.3 g/dL (3.5-5.1); Alkaline Phosphatase 69 U/L (38-126); Anion Gap 1 mmol/L (4-12); Aspartate Amino Transferase 152 U/L (17-59); Bilirubin,Total 0.2 mg/dL (0.2-1.3); Blood Urea Nitrogen 25 mg/dL (9-20); Calcium 7.3 mg/dL (8.4-10.2); Carbon Dioxide 26 mmol/L (22-30); Chloride 114 mmol/L (98-107); Estimated CRCL calculation 27 ml/min; Estimated Glomerular Filt Rate 34; Glucose 151 mg/dL (65-110); Magnesium 2.2 mg/dL (1.6-2.3); Phosphorus 2.9 mg/dL (2.5-4.5); Sodium 141 mmol/L (137-145)
[2023-12-24 05:53] LABS: Creatine Kinase 4565 U/L (55-170)
[2023-12-24] MEDS: cefTRIAXone 2 GM/NS 100 ML 2 GM/100 ML BAG IVPB (06:29)
[2023-12-24] MEDS: ASCORBIC ACID 500 MG TABLET 1000 MG PO (08:58)
[2023-12-24] MEDS: PANTOPRAZOLE 40 MG TABLET PO (08:59)
[2023-12-24] MEDS: MULTIVITAMINS THERAPEUTIC TAB (*BKC) 1 TABLET PO (08:59)
[2023-12-24] MEDS: ASPIRIN 81 MG ENTERIC TABLET PO (08:59)
[2023-12-24] MEDS: METOPROLOL TARTRATE 12.5 MG TABLET PO ×2 (08:59→20:11)
--- NOTE | 2023-12-24 10:22 | PM.PNCARD ---
Progress Note: A&P Assessment and Plan (1) Atrial fibrillation with RVR: Code(s): I48.91 - Unspecified atrial fibrillation Status: Acute Assessment and Plan: New onset atrial fibrillation with rapid ventricular response. Currently in sinus rhythm after IV metoprolol.? Nonspecific rate dependent bundle-branch block noted.? Continue metoprolol tartrate 12.5 mg twice daily.? Up titrate as tolerated and as BP permits.? Unable to initiate systemic anticoagulation given his recurrent falls, history of intraparenchymal hemorrhage which precise details remain unclear whether this was a traumatic event or spontaneous as he was found on the ground.? Not an anticoagulation candidate at this time given the above fall risk, history of cerebral intraparenchymal hemorrhage.? Patient remains in elevated risk for hemorrhagic and embolic stroke complications.? Patient has multiple comorbidities as a high risk for serious life-threatening complications in this regard. (2) Non-ST elevation [place] (NSTEMI): Code(s): I21.4 - Non-ST elevation (NSTEMI) myocardial infarction Status: Acute Assessment and Plan: Patient denies prior known history of CAD or myocardial infarction and does not present with symptoms suggestive of angina.? However, serial troponins with significant elevation of up to 12.1.? Patient remains asymptomatic in this regard.? ECG consistent with prior anteroseptal infarct which is not new compared to prior tracings. Echocardiogram shows LVEF 50-55% with akinesis of the apex and apical septum. Recommend initiation of aspirin 81 mg daily, continuation of atorvastatin 40 mg daily.? Discussed with patient at length although his ability to fully appreciate our discussion is questionable.? At this time, patient is not a reasonable candidate for invasive angiography in light of acute on chronic kidney injury, history of intracerebral hemorrhage which the safety of at least dual antiplatelet therapy and or systemic anticoagulation remains highly questionable.? Conservative management at this time particularly given his asymptomatic status in this regard is most appropriate. (3) Sepsis: Code(s): A41.9 - Sepsis, unspecified organism Status: Acute Assessment and Plan: Management as per primary team. (4) Acute kidney injury superimposed on chronic kidney disease: Code(s): N17.9 - Acute kidney failure, unspecified; N18.9 - Chronic kidney disease, unspecified Status: Acute Assessment and Plan: Monitor renal function (5) History of intracranial hemorrhage: Code(s): Z86.79 - Personal history of other diseases of the circulatory system Status: Acute Assessment and Plan: Precise details regarding history of intracerebral hemorrhage remain unclear.? Patient denies falls, however, records indicate patient was found on the ground and with extensive right-sided intraparenchymal hemorrhage in multiple locations.? Repeat CT head reveals no acute process but only mentioned chronic right-sided infarctions but it is difficult to ascertain whether this is reflection of his prior intraparenchymal hemorrhage or embolic phenomenon in light of atrial fibrillation which has only recently been appreciated. (6) UTI (urinary tract infection): Code(s): N39.0 - Urinary tract infection, site not specified Status: Acute Assessment and Plan: Management per primary service. (7) History of fall: Code(s): Z91.81 - History of falling Status: Acute Assessment and Plan: Given recurrent falls, patient does not appear to be a reasonable cannot for systemic anticoagulation for atrial fibrillation stroke risk reduction, particularly in light of history of intracerebral hemorrhage albeit remote.? PT OT. Plan Cardiology will sign off at this time. Please call us back if needed. Will arrange outpatient follow up with us. Subjective Date/time seen: 12/24/23 10:22 Interval his
[2023-12-24] MEDS: SODIUM CHLORIDE 0.9% IV 1,000 ML 150 ML IV CONT (11:35)
--- NOTE | 2023-12-24 17:03 | PM.IMPN ---
Progress Note: A&P Assessment and Plan (1) Sepsis: Code(s): A41.9 - Sepsis, unspecified organism Status: Acute Assessment and Plan: Sepsis present on admission with REBCEA, tachycardia, lactic acidosis and HoTN. Treated with IV fluids but limited due to the elevated BNP and pedal edema. Lactic acid improved from 2.4 -> 1.4 CXR showing possible ILD but could be pulm edema. Source is probably complicated UTI given the abnormal UA with recent Camilo exchange. PNA felt less likely WBC 17K now normal. UCx Klebsiella BCx NGTD Continue Rocephin (2) Non-ST elevation RI (NSTEMI): Code(s): I21.4 - Non-ST elevation (NSTEMI) myocardial infarction Status: Acute Assessment and Plan: EKG showing left BBB with AFib/RVR. This is a new findings. Probably a rate related BBB He converted to NSR with metoprolol treatment. Troponin climbed to 12 Echo showing EF 50-55% with akinesis of the apex and apical septum. No apical thrombus but limited. Grade II diastolic dysfunction. Cardiology consulted. Heparin drip held given his hx of of spontaneous cerebral hemorrhage. He does have pedal edema from unclear etiology. Doppler negative for DVT. Consider CHF. Has Rhabdomyolysis so could be contributing to the elevated Troponin LDL 35, HDL 42. Continue baby ASA and Metoprolol. Lipitor stopped due to rhabdomyolysis (3) Rhabdomyolysis: Code(s): M62.82 - Rhabdomyolysis Status: Acute Assessment and Plan: Patient with 2+ blood and 11-20 RBC with TCK 10K. Cr was 2.5 on admission IV fluids started again at higher rate. Lipitor stopped Repeat Cr better at 1.9 and TCK down to 4565 Continue IV fluids but lower rate. Consider lasix (4) Atrial fibrillation with RVR: Code(s): I48.91 - Unspecified atrial fibrillation Status: Acute Assessment and Plan: Patient presents with AFib/RVR which could be related to sepsis. [id number] score elevated to at least 6. Holding anticoagulation after discussion with Cardiology Maintaining NSR Treat sepsis as above Monitor on tele (5) UTI (urinary tract infection): Code(s): N39.0 - Urinary tract infection, site not specified Status: Acute Assessment and Plan: UA is consistent with UTI. UCx collected. Rocephin started UCx growing Klebsiella. Follow up on UCx results. (6) Fall: Code(s): W19.XXXA - Unspecified fall, initial encounter Status: Acute Assessment and Plan: Patient fell and denies head injury but hx somewhat unreliable. 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 Cr 2.5 here felt related to urinary obstruction from Camilo poorly placed given the patient's symptoms and rhabdomyolysis. Camilo replaced in ED and his lower abdominal symptoms have resolved Renal US showing no acute findings Cr down to 1.9 Follow. (8) Left bundle branch block (LBBB): Code(s): I44.7 - Left bundle-branch block, unspecified Status: Acute Assessment and Plan: As above (9) Essential hypertension: Code(s): I10 - Essential (primary) hypertension Status: Acute Assessment and Plan: BP soft on admisison but better with IV fluids. Monitor closely. Plan DVT prophylaxis - SCD Code status - full Subjective Date/time seen: 12/24/23 17:03 Interval history: 83yo male with DM, htn, hx of hemorrhagic CVA, CKD and urine retention with chronic Camilo here for a fall.?? Slept well. Walking in the room with walker. Sitting up in the chair. No CP or SOB Exam Narrative: AF 97.0 126/66 75 16 99% ra
[2023-12-24] MEDS: SODIUM CHLORIDE 0.9% IV 1,000 ML 100 ML IV CONT (20:09)
[2023-12-24] MEDS: MELATONIN 3 MG TABLET PO (20:10)
[2023-12-25] VITALS (18 sets, daily range): BP systolic 127–149; BP diastolic 55–71; PULSE 69–87; RESP 16–20; TEMP 36.1–36.8; O2SAT 91–98
[2023-12-25 04:36] LABS: Hematocrit 30.6 % (42.0-52.0); Hemoglobin 9.5 g/dL (14.0-18.0); Mean Corpuscular Hemoglobin 30.2 pg (26-34); Mean Corpuscular Volume 97.1 fl (80-100); Mean Platelet Volume 9.6 fl (7.4-10.4); Platelet Count Result 291 k/mm3 (150-375); Red Blood Count 3.15 M/mm3 (4.6-6.20); Red Cell Distribution Width 14.2 % (11.5-14.5); White Blood Count 8.3 K/mm3 (4.5-10.0)
[2023-12-25 04:53] LABS: Anion Gap 2 mmol/L (4-12); Blood Urea Nitrogen 19 mg/dL (9-20); Calcium 7.4 mg/dL (8.4-10.2); Carbon Dioxide 24 mmol/L (22-30); Chloride 114 mmol/L (98-107); Estimated CRCL calculation 34 ml/min; Estimated Glomerular Filt Rate 45; Glucose 133 mg/dL (65-110); Potassium 3.7 mmol/L (3.4-5.0); Sodium 140 mmol/L (137-145)
[2023-12-25 05:10] LABS: Creatine Kinase 2788 U/L (55-170)
[2023-12-25] MEDS: SODIUM CHLORIDE 0.9% IV 1,000 ML 100 ML IV CONT (06:00)
[2023-12-25] MEDS: cefTRIAXone 2 GM/NS 100 ML 2 GM/100 ML BAG IVPB (06:04)
[2023-12-25] MEDS: ASCORBIC ACID 500 MG TABLET 1000 MG PO (08:37)
[2023-12-25] MEDS: MULTIVITAMINS THERAPEUTIC TAB (*BKC) 1 TABLET PO (08:38)
[2023-12-25] MEDS: PANTOPRAZOLE 40 MG TABLET PO (08:38)
[2023-12-25] MEDS: METOPROLOL TARTRATE 12.5 MG TABLET PO ×2 (08:39→21:12)
[2023-12-25] MEDS: ASPIRIN 81 MG ENTERIC TABLET PO (08:40)
--- NOTE | 2023-12-25 12:53 | P.CDI_ITS ---
CDI Query Clarification Request Documentation in the medical record indicates that this patient has been admitted with or diagnosed as having Rhabdomyolysis. The following is also documented in the medical record. (3) Rhabdomyolysis: ?Code(s): M62.82 - Rhabdomyolysis ?Status:?Acute ?Assessment and Plan: Patient with 2+ blood and 11-20 RBC with TCK 10K. Cr was 2.5 on admission IV fluids started again at higher rate. Lipitor stopped Repeat Cr better at 1.9 and TCK down to 4565 Continue IV fluids but lower rate. Consider lasix (6) Fall: ?Code(s): W19.XXXA - Unspecified fall, initial encounter ?Status:?Acute ?Assessment and Plan: Patient fell and denies head injury but hx somewhat unreliable. 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 The following is also documented in the medical record. (3) Rhabdomyolysis: ?Code(s): M62.82 - Rhabdomyolysis ?Status:?Acute ?Assessment and Plan: Patient with 2+ blood and 11-20 RBC with TCK 10K. Cr was 2.5 on admission IV fluids started again at higher rate. Lipitor stopped Repeat Cr better at 1.9 and TCK down to 4565 Continue IV fluids but lower rate. Consider lasix (6) Fall: ?Code(s): W19.XXXA - Unspecified fall, initial encounter ?Status:?Acute ?Assessment and Plan: Patient fell and denies head injury but hx somewhat unreliable. 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
--- NOTE | 2023-12-25 13:02 | P.CDI_ITS ---
CDI Query Clarification Request Documentation in the medical record indicates that this patient has been diagnosed as having a UTI. Additional findings also documented in the medical record include: Urine culture from 12/22/23 grew > 100,00 Klebsiella Pneumoniae Chronic indwelling Pulido catheter documented. Patient started on Rocephin 2 gm Q 24hrs. 5) UTI (urinary tract infection): ?Code(s): N39.0 - Urinary tract infection, site not specified ?Status:?Acute ?Assessment and Plan: UA is consistent with UTI. UCx collected. Rocephin started UCx growing Klebsiella. Follow up on UCx results. Clarification request - UTI has been documented, chronic indwelling pulido catheter documented. Please clarify if UTI is: * due to/associated with chronic indwelling pulido catheter * not due to/associated with chronic indwelling pulido catheter * unable to determine <Stacy Mtz RN - Last Filed: 12/25/23 13:10> Documentation in the medical record indicates that this patient has been diagnosed as having a UTI. Additional findings also documented in the medical record include: Urine culture from 12/22/23 grew > 100,00 Klebsiella Pneumoniae Chronic indwelling Pulido catheter documented. Patient started on Rocephin 2 gm Q 24hrs. 5) UTI (urinary tract infection): ?Code(s): N39.0 - Urinary tract infection, site not specified ?Status:?Acute ?Assessment and Plan: UA is consistent with UTI. UCx collected. Rocephin started UCx growing Klebsiella. Follow up on UCx results. Clarification request - UTI has been documented, chronic indwelling pulido catheter documented. Please clarify if UTI is: * due to/associated with chronic indwelling pulido catheter * not due to/associated with chronic indwelling pulido catheter * unable to determine UTI due to/associated with chronic indwelling pulido catheter <Kaylyn Mena MD - Last Filed: 12/26/23 14:33>
--- NOTE | 2023-12-25 15:05 | PM.IMPN ---
Progress Note: A&P Assessment and Plan (1) Sepsis: Code(s): A41.9 - Sepsis, unspecified organism Status: Acute Assessment and Plan: Sepsis present on admission with REBECA, tachycardia, lactic acidosis and HoTN. Treated with IV fluids but limited due to the elevated BNP and pedal edema. Lactic acid improved from 2.4 -> 1.4 CXR showing possible ILD but could be pulm edema. Source is probably complicated UTI given the abnormal UA with recent Camilo exchange. PNA felt less likely UCx Klebsiella BCx NGTD Continue Rocephin WCC are nl (2) Non-ST elevation [place] (NSTEMI): Code(s): I21.4 - Non-ST elevation (NSTEMI) myocardial infarction Status: Acute Assessment and Plan: EKG showing left BBB with AFib/RVR. This is a new findings. Probably a rate related BBB He converted to NSR with metoprolol treatment. Troponin climbed to 12 Echo showing EF 50-55% with akinesis of the apex and apical septum. No apical thrombus but limited. Grade II diastolic dysfunction. Cardiology consulted. Heparin drip held given his hx of of spontaneous cerebral hemorrhage. He does have pedal edema from unclear etiology. Doppler negative for DVT. Consider CHF. Has Rhabdomyolysis so could be contributing to the elevated Troponin LDL 35, HDL 42. Continue baby ASA and Metoprolol. Lipitor stopped due to rhabdomyolysis conservative management (3) Rhabdomyolysis: Code(s): M62.82 - Rhabdomyolysis Status: Acute Assessment and Plan: Patient with 2+ blood and 11-20 RBC with TCK 10K. Cr was 2.5 on admission IV fluids started again at higher rate. Lipitor stopped Repeat Cr better at 1.9 and TCK down to 4565 Continue IV fluids but lower rate. Consider lasix watch CK (4) Atrial fibrillation with RVR: Code(s): I48.91 - Unspecified atrial fibrillation Status: Acute Assessment and Plan: Patient presents with AFib/RVR which could be related to sepsis. [id number] score elevated to at least 6. Holding anticoagulation after discussion with Cardiology Maintaining NSR (5) UTI (urinary tract infection): Code(s): N39.0 - Urinary tract infection, site not specified Status: Acute Assessment and Plan: UA is consistent with UTI. UCx collected. Rocephin started UCx growing Klebsiella. Follow up on UCx results. (6) Fall: Code(s): W19.XXXA - Unspecified fall, initial encounter Status: Acute Assessment and Plan: Patient fell and denies head injury but hx somewhat unreliable. 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 Cr 2.5 here felt related to urinary obstruction from Camilo poorly placed given the patient's symptoms and rhabdomyolysis. Camilo replaced in ED and his lower abdominal symptoms have resolved Renal US showing no acute findings creat is 1.5 with fluids (8) Left bundle branch block (LBBB): Code(s): I44.7 - Left bundle-branch block, unspecified Status: Acute Assessment and Plan: As above (9) Essential hypertension: Code(s): I10 - Essential (primary) hypertension Status: Acute Assessment and Plan: BP soft on admisison but better with IV fluids. Subjective Date/time seen: 12/25/23 15:05 Interval history: 83yo male with DM, htn, hx of hemorrhagic CVA, CKD and urine retention with chronic Camilo here for a fall.?? 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
[2023-12-25] MEDS: SODIUM CHLORIDE 0.9% IV 1,000 ML 70 ML IV CONT (16:17)
[2023-12-25 18:23] LABS: Complement Total CH50 >60 U/mL (31-60)
[2023-12-25] MEDS: MELATONIN 3 MG TABLET PO (21:13)
[2023-12-26] VITALS (20 sets, daily range): BP systolic 124–152; BP diastolic 56–73; PULSE 67–85; RESP 16–20; TEMP 36.1–36.9; O2SAT 90–98
[2023-12-26] MEDS: SODIUM CHLORIDE 0.9% IV 1,000 ML 70 ML IV CONT ×2 (03:48→16:48)
[2023-12-26 04:46] LABS: Hematocrit 32.2 % (42.0-52.0); Hemoglobin 10.1 g/dL (14.0-18.0); Mean Corpuscular HGB Conc 31.4 g/dl (32-36); Mean Corpuscular Hemoglobin 30.1 pg (26-34); Mean Corpuscular Volume 96.1 fl (80-100); Mean Platelet Volume 9.5 fl (7.4-10.4); Platelet Count Result 318 k/mm3 (150-375); Red Blood Count 3.35 M/mm3 (4.6-6.20); Red Cell Distribution Width 14.1 % (11.5-14.5); White Blood Count 9.3 K/mm3 (4.5-10.0)
[2023-12-26] MEDS: cefTRIAXone 2 GM/NS 100 ML 2 GM/100 ML BAG IVPB (05:48)
[2023-12-26] MEDS: ASCORBIC ACID 500 MG TABLET 1000 MG PO (07:55)
[2023-12-26] MEDS: ASPIRIN 81 MG ENTERIC TABLET PO (07:56)
[2023-12-26] MEDS: PANTOPRAZOLE 40 MG TABLET PO (07:57)
[2023-12-26] MEDS: METOPROLOL TARTRATE 12.5 MG TABLET PO ×2 (07:57→20:49)
[2023-12-26] MEDS: MULTIVITAMINS THERAPEUTIC TAB (*BKC) 1 TABLET PO (07:57)
[2023-12-26 10:17] LABS: Anion Gap 3 mmol/L (4-12); Blood Urea Nitrogen 17 mg/dL (9-20); Calcium 8.2 mg/dL (8.4-10.2); Carbon Dioxide 22 mmol/L (22-30); Chloride 114 mmol/L (98-107); Creatine Kinase 925 U/L (55-170); Estimated CRCL calculation 34 ml/min; Estimated Glomerular Filt Rate 41; Glucose 131 mg/dL (65-110); Potassium 3.9 mmol/L (3.4-5.0); Sodium 139 mmol/L (137-145)
--- NOTE | 2023-12-26 13:15 | PM.IMPN ---
Progress Note: A&P Assessment and Plan (1) Sepsis: Code(s): A41.9 - Sepsis, unspecified organism Status: Acute Assessment and Plan: Sepsis present on admission with REBECA, tachycardia, lactic acidosis and HoTN. Treated with IV fluids but limited due to the elevated BNP and pedal edema. Lactic acid improved from 2.4 -> 1.4 CXR showing possible ILD but could be pulm edema. Source is probably complicated UTI given the abnormal UA with recent Camilo exchange. PNA felt less likely UCx Klebsiella BCx NGTD Continue Rocephin transition to oral ABX WCC are nl (2) Non-ST elevation CT (NSTEMI): Code(s): I21.4 - Non-ST elevation (NSTEMI) myocardial infarction Status: Acute Assessment and Plan: EKG showing left BBB with AFib/RVR. This is a new findings. Probably a rate related BBB He converted to NSR with metoprolol treatment. Troponin climbed to 12 Echo showing EF 50-55% with akinesis of the apex and apical septum. No apical thrombus but limited. Grade II diastolic dysfunction. Cardiology consulted. Heparin drip held given his hx of of spontaneous cerebral hemorrhage. He does have pedal edema from unclear etiology. Doppler negative for DVT. Consider CHF. Has Rhabdomyolysis so could be contributing to the elevated Troponin LDL 35, HDL 42. Continue baby ASA and Metoprolol. Lipitor stopped due to rhabdomyolysis conservative management (3) Rhabdomyolysis: Code(s): M62.82 - Rhabdomyolysis Status: Acute Assessment and Plan: Patient with 2+ blood and 11-20 RBC with TCK 10K. Cr was 2.5 on admission IV fluids started again at higher rate. Lipitor stopped Repeat Cr better at 1.9 and TCK down to 4565 Continue IV fluids but lower rate. watch CK (4) Atrial fibrillation with RVR: Code(s): I48.91 - Unspecified atrial fibrillation Status: Acute Assessment and Plan: Patient presents with AFib/RVR which could be related to sepsis. [id number] score elevated to at least 6. Holding anticoagulation after discussion with Cardiology Maintaining NSR (5) UTI (urinary tract infection): Code(s): N39.0 - Urinary tract infection, site not specified Status: Acute Assessment and Plan: UA is consistent with UTI. UCx collected. Rocephin started pt has been on iv rocephin for 6 days UCx growing Klebsiella. ok to transition to oral ABX (6) Fall: Code(s): W19.XXXA - Unspecified fall, initial encounter Status: Acute Assessment and Plan: Patient fell and denies head injury but hx somewhat unreliable. 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 Cr 2.5 here felt related to urinary obstruction from Camilo poorly placed given the patient's symptoms and rhabdomyolysis. Camilo replaced in ED and his lower abdominal symptoms have resolved Renal US showing no acute findings creat is 1.6 with fluids consider voiding trail today and DC tomorrow back to [facility] (8) Left bundle branch block (LBBB): Code(s): I44.7 - Left bundle-branch block, unspecified Status: Acute Assessment and Plan: As above (9) Essential hypertension: Code(s): I10 - Essential (primary) hypertension Status: Acute Assessment and Plan: BP soft on admisison but better with IV fluids. Subjective Date/time seen: 12/26/23 13:15 Interval history: 83yo male with DM, htn, hx of hemorrhagic CVA, CKD and urine retention with chronic Camilo here for a fall.?? Nstemi, REBECA uti and af with rvr, rhabdomyolysis 12/25/2023 Pt improving, discuss
[2023-12-26] MEDS: MELATONIN 3 MG TABLET PO (20:49)
[2023-12-27] VITALS (11 sets, daily range): BP systolic 135–144; BP diastolic 49–68; PULSE 64–89; RESP 17–18; TEMP 36.4–36.9; O2SAT 94–99
[2023-12-27 05:21] LABS: Anion Gap 1 mmol/L (4-12); Blood Urea Nitrogen 16 mg/dL (9-20); Calcium 8.4 mg/dL (8.4-10.2); Carbon Dioxide 26 mmol/L (22-30); Chloride 110 mmol/L (98-107); Creatine Kinase 430 U/L (55-170); Estimated CRCL calculation 36 ml/min; Estimated Glomerular Filt Rate 45; Glucose 128 mg/dL (65-110); Potassium 3.9 mmol/L (3.4-5.0); Sodium 137 mmol/L (137-145)
[2023-12-27] MEDS: SODIUM CHLORIDE 0.9% IV 1,000 ML 70 ML IV CONT (07:47)
[2023-12-27] MEDS: AMOXICILLIN/CLAVULANATE K 875-125 MG TAB 1 TABLET PO (09:18)
[2023-12-27] MEDS: ASCORBIC ACID 500 MG TABLET 1000 MG PO (09:18)
[2023-12-27] MEDS: PANTOPRAZOLE 40 MG TABLET PO (09:18)
[2023-12-27] MEDS: METOPROLOL TARTRATE 12.5 MG TABLET PO (09:18)
[2023-12-27] MEDS: ASPIRIN 81 MG ENTERIC TABLET PO (09:18)
[2023-12-27] MEDS: MULTIVITAMINS THERAPEUTIC TAB (*BKC) 1 TABLET PO (09:19)
--- NOTE | 2023-12-27 12:57 | PM.DS ---
DS: Admitting Diagnosis Discharge Date 12/27/2023 Admitting Diagnosis Sepsis DS: Discharge Diagnosis Discharge Diagnosis (1) Sepsis: Code(s): A41.9 - Sepsis, unspecified organism Status: Acute (2) Non-ST elevation IN (NSTEMI): Code(s): I21.4 - Non-ST elevation (NSTEMI) myocardial infarction Status: Acute (3) Rhabdomyolysis: Code(s): M62.82 - Rhabdomyolysis Status: Acute (4) Atrial fibrillation with RVR: Code(s): I48.91 - Unspecified atrial fibrillation Status: Acute (5) UTI (urinary tract infection): Code(s): N39.0 - Urinary tract infection, site not specified Status: Acute (6) Fall: Code(s): W19.XXXA - Unspecified fall, initial encounter Status: Acute (7) Acute kidney injury superimposed on chronic kidney disease: Code(s): N17.9 - Acute kidney failure, unspecified; N18.9 - Chronic kidney disease, unspecified Status: Acute (8) Left bundle branch block (LBBB): Code(s): I44.7 - Left bundle-branch block, unspecified Status: Acute (9) Essential hypertension: Code(s): I10 - Essential (primary) hypertension Status: Acute DS: Summary Hospital Course Hospital Course: Patient presented from rehab facility after a fall. He stated that he fell on to his both knees while he was in the bathroom. He was trying to get to his walker and went to use the grab bar but his and prepped. EMS was called. Have heart rate of 130s. Upon arrival to the ED he was noted to have his Camilo catheter following out and hence was removed and in the ER. Had a left hip surgery approximately a month ago. ED evaluation showed borderline blood pressure with tachycardia and diagnosed sepsis. EKG showed atrial fibrillation. WBC count 16.9 creatinine of 2.5 elevated lactic acid at 4 troponin was elevated at 0.037 BNP 9180. UA was positive UTI. Subsequent troponin level at 1.6 followed by 5.5-[address] elevation IN. echo showed EF of 50 with akinesis of the apex and goal septum. Grade 2 diastolic dysfunction. No thrombus identified however unable to exclude LV thrombus secondary to heavy trabeculation in certain views. Cardiology was consulted. Due to sepsis he was not a candidate for invasive workup and was treated conservatively. He will be followed up by Cardiology as outpatient basis for further workup. With regard to atrial fibrillation he was treated with beta-giovanni and a converted back to sinus rhythm. Due to recurrent fall history of intraparenchymal hemorrhages in the past. He will remain on aspirin 81 mg daily along with atorvastatin 40 mg daily. With regard to his UTI he was placed on Rocephin which has been switched to oral antibiotics and will complete the course. Urine culture grew Klebsiella blood culture remained negative to date. He also had evidence of rhabdomyolysis with elevated CK level in 10 K on admission, Lipitor initially stopped will resume at discharge as CK as improved significantly. Rhabdomyolysis was treated with IV fluids. PT OT has evaluated the patient REBECA has resolved back to baseline his creatinine baseline 1.4-1.6 creatinine on admission was 2.5 renal ultrasound showed no acute findings.. He will go back to [facility] for further rehabilitation. He has history of stroke Urinary retention needing Camilo catheter will follow-up with urologist as outpatient basis on tamsulosin Time Spent with Patient Time attestation: Total time spent providing and/or coordinating discharge services: Exam Narrative: Gen - elderly male chroncally ill Chest - clear lungs no respiratory distress CV - RRR. S1-S2. Abd - soft, NT/ND - Camilo secured draining clear yellow urine Ext - trace-1+ pitting pedal edema Psych - normal mood Skin - warm and dry. DS: Data Data Completed and Pending Completed studies during hospitalization: Exam Type: ? ? CA echo doppler color flow Study Inf
== END 2023-12-27 15:36 | disposition home health service (06) | DRG 698 ==
LOC: ANHED 06:39 → ANHIMU 09:00
PROVIDERS: Family Medicine; Admitting Provider Internal Medicine; Emergency Provider Student in an Organized Health Care Education/Training Program; PCP Nurse Practitioner Family; Visit Provider Internal Medicine
DX: T83.511A Infection and inflammatory reaction due to indwelling urethral catheter, initial encounter (principal); A41.9 Sepsis, unspecified organism; I21.4 Non-ST elevation (NSTEMI) myocardial infarction; N17.9 Acute kidney failure, unspecified; N39.0 Urinary tract infection, site not specified; B96.1 Klebsiella pneumoniae [K. pneumoniae] as the cause of diseases classified elsewhere; I12.9 Hypertensive chronic kidney disease with stage 1 through stage 4 chronic kidney disease, or unspecified chronic kidney disease; I48.91 Unspecified atrial fibrillation; I44.7 Left bundle-branch block, unspecified; T79.6XXA Traumatic ischemia of muscle, initial encounter; W19.XXXA Unspecified fall, initial encounter; E11.22 Type 2 diabetes mellitus with diabetic chronic kidney disease; E78.5 Hyperlipidemia, unspecified; N18.32 Chronic kidney disease, stage 3b; Z85.828 Personal history of other malignant neoplasm of skin; Z85.820 Personal history of malignant melanoma of skin; Z87.891 Personal history of nicotine dependence; Z86.73 Personal history of transient ischemic attack (TIA), and cerebral infarction without residual deficits
CPT/HCPCS: 36415; 70450; 71045; 72125; 73562; 76775; 80048; 80053; 80061; 81001; 82550; 82570; 83605; 83690; 83735; 83880; 84100; 84300; 84484; 85025; 85027; 85610; 85730; 85999; 86160; 86162; 87040; 87077; 87086; 87088; 87186; 93005; 93306; 93970; 96361; 96365; 96375; 96376; 97110; 97161; 97165; 97530; 99285; A9270; G0378; J0696; J7030

== ENCOUNTER 2023-12-28 21:30 | Inpatient (IN) | payer MEDICARE, SELFPAY ==
[2023-12-28] VITALS (20 sets, daily range): BP systolic 84–118; BP diastolic 59–83; PULSE 110–157; RESP 14–28; TEMP 36.9; O2SAT 90–96
--- NOTE | ~2023-12-28 | XR_ITS ---
Portable chest x-ray Comparison: 12/30/2023 Clinical History: Tube placement Findings: Endotracheal tube and right IJ line are in satisfactory positions. Small bilateral pleural effusions present with mild bibasilar pulmonary edema. Cardiomediastinal silhouette is stable. Bone s and soft tissues are unremarkable. Impression: Support tubes, as above. Small pleural effusions with mild bibasilar pulmonary edema. Reviewed, dictated and finalized at location . Impression: Support tubes, as above. Small pleural effusions with mild bibasilar pulmonary edema.
--- NOTE | ~2023-12-28 | XR_ITS ---
Portable chest x-ray Comparison: 01/01/2024 Clinical History: Respiratory failure Findings: Endotracheal tube, NG tube, and right IJ line are in place. Small layering pleural effusio ns are present. Probable left basilar atelectatic change. Cardiomediastinal silhouette is stable. Alexys nitza and soft tissues are unremarkable. Impression: Small pleural effusions with left lower lobe atelectatic change. Support tubes, as above. Reviewed, dictated and finalized at location M. Impression: Small pleural effusions with left lower lobe atelectatic change. Support tubes, as above.
--- NOTE | ~2023-12-28 | XR_ITS ---
EXAMINATION: XR chest 1V portable Exam Date/Time: 12/28/2023 21:45 CDT HISTORY: chest pain, afib Comparison: 12/22/2023. RESULT: Lines, tubes, and devices: None. Lungs and pleura: Segmental left basilar airspace disease. Streaky and subsegmental right basilar op acities. Mild left and trace right costophrenic angle blunting. Cardiomediastinal silhouette: Stable. Other: No acute osseous or upper abdominal finding. Ovoid opacity over the central upper abdomen may represent ingested material or external artifact. IMPRESSION: Segmental left basilar and subsegmental right basilar atelectasis/consolidation. Small left and trace right pleural effusions. Reviewed, dictated and finalized at location K. IMPRESSION: Segmental left basilar and subsegmental right basilar atelectasis/consolidation . Small left and trace right pleural effusions.
--- NOTE | ~2023-12-28 | XR_ITS ---
EXAMINATION: XR chest 1V portable Exam Date/Time: 12/30/2023 22:00 CDT HISTORY: shortness of breath Comparison: 12/28/2023. RESULT: Lines, tubes, and devices: None. Lungs and pleura: Moderate diffuse reticular opacities. Segmental left basilar and subsegmental righ t basilar airspace disease. Mild left and trace right costophrenic angle blunting. Cardiomediastinal silhouette: Stable. Other: No acute osseous or upper abdominal finding. IMPRESSION: Moderate interstitial edema. Left basilar segmental and right basilar subsegmental atelectasis/consol idation, unchanged. Small left and trace right pleural effusion, unchanged. Reviewed, dictated and finalized at location K. IMPRESSION: Moderate interstitial edema. Left basilar segmental and right basilar subsegmen raquel atelectasis/consolidation, unchanged. Small left and trace right pleural ef fusion, unchanged.
--- NOTE | ~2023-12-28 | XR_ITS ---
XR abdomen gastric tube rechec INDICATION: Evaluate NG tube position. TECHNIQUE: Limited KUB perform for evaluating NG tube . COMPARISON: 12/31/2023 FINDINGS: NG tube tip in the stomach, side port near the expected location of the GE junction. Visua lized bowel gas pattern is unremarkable.There is left pleural effusion with underlying compressive at electasis. IMPRESSION: 1: NG tube tip in the stomach, side port near the GE junction.. Reviewed, dictated and finalized at location A.
--- NOTE | ~2023-12-28 | CT_ITS ---
EXAMINATION:CT diagnostic chest wo con DATE: 12/31/2023 14:29 INDICATION: Respiratory failure. TECHNIQUE: Computed tomography (CT) of the chest was performed without intravenous contrast. Automate d exposure control and iterative reconstruction technique were employed. The dose-length product (DLP ) was 474.71 mGy-cm. COMPARISON: None. FINDINGS: There are moderate-sized pleural effusions. There is dependent atelectasis bilaterally. The re are patchy groundglass opacities in the upper lobes. Calcified pulmonary nodules are consistent wi th old granulomatous disease. The endotracheal tube is in expected position. The heart size is normal . There is a pacer wire in right ventricle. There are coronary artery calcifications. No pericardial effusion. There is severe cervical and thoracic spondylosis. IMPRESSION: 1. Moderate-sized pleural effusions. 2. Patchy groundglass opacities in the upper lobes, consistent with mild pulmonary edema versus infla mmation/infection. Reviewed, dictated and finalized at location A. IMPRESSION: 1. Moderate-sized pleural effusions. 2. Patchy groundglass opacities in the upper lobes, consistent with mild pulmon jey edema versus inflammation/infection.
--- NOTE | ~2023-12-28 | XR_ITS ---
Portable chest x-ray Comparison: 12/31/2023 Clinical History: Respiratory failure Findings: Endotracheal tube, NG tube, and right IJ line are in place. Small to moderate layering ple ural effusions are present. Cardiomediastinal silhouette is stable. Bones and soft tissues are unrem arkable. Impression: [id number] layering pleural effusions. Support tubes, as above. Reviewed, dictated and finalized at location . Impression: [id number] layering pleural effusions. Support tubes, as above.
--- NOTE | ~2023-12-28 | CT_ITS ---
Non-contrast Head CT History: Altered mental status COMPARISON: 12/22/2023 Technique: Axial non-contrast imaging of the brain was performed. Dose reduction technique was used on this scan by utilizing automated exposure control and iterative reconstruction technique. The dose -length product (DLP) was 681.00 mGy-cm. Findings: There is no evidence of intracranial hemorrhage, mass lesion, or acute infarct. Extensive chronic right MCA distribution infarct is noted. The ventricles and subarachnoid spaces are normal i n size. The calvarium appears normal. The visualized paranasal sinuses and mastoid air cells are cl ear. Impression: No acute abnormality seen. Stable extensive chronic right MCA distribution infarct. Reviewed, dictated and finalized at location . Impression: No acute abnormality seen. Stable extensive chronic right MCA distribution infarct.
--- NOTE | ~2023-12-28 | XR_ITS ---
XR abdomen gastric tube insert INDICATION: Evaluate NG tube position. TECHNIQUE: Limited KUB perform for evaluating NG tube . COMPARISON: No prior studies for comparison. FINDINGS: NG tube tip in the stomach, side port near the expected location of the GE junction. Visua lized bowel gas pattern is nonspecific.There is left pleural effusion with left basilar atelectasis. IMPRESSION: 1: NG tube tip in the stomach, side port near the expected location of the GE junction. Reviewed, dictated and finalized at location A.
--- NOTE | 2023-12-28 21:36 | ECG_ITS ---
SEE SCANNED COPY FOR CONFIRMED REPORT MTDD
[2023-12-28] MEDS: ASPIRIN 81 MG CHEWABLE TABLET 324 MG PO (21:54)
--- NOTE | 2023-12-28 21:54 | ED.CHESTPAIN ---
HPI - Chest Pain General Chief Complaint: Chest Pain Stated Complaint: CHEST PRESSURE Time Seen by Provider: 12/28/23 21:39 History of Present Illness HPI narrative: Patient is an 83-year-old male who presents to the emergency department this evening from his extended care facility due to AFib with RVR. Patient was recently diagnosed with new onset AFib last month and started on metoprolol 12.5 mg b.i.d.. Patient was not a candidate for anticoagulation due to history of intracranial hemorrhage and recurrent falls. Patient is currently denying any sharp stabbing chest pain, however, he does states that he feels some chest heaviness. He denies any shortness of breath, and is currently denying any additional symptoms including abdominal pain, nausea, vomiting and denies any dysuria or hematuria. Patient admits that he is currently being treated for urinary tract infection. Patient is alert and oriented x3 and answering all my questions appropriately. Otherwise there are no other modifying, alleviating, or precipitating factors at this time. Related Data Home Medications Medication Instructions Recorded Confirmed ascorbic acid (vitamin C) 1,000 mg 1 g PO DAILY 12/05/23 12/29/23 capsule multivitamin 1 tablet PO DAILY 12/05/23 12/29/23 finasteride 5 mg PO DAILY urinary retention 12/22/23 12/29/23 melatonin 3 mg tablet 3 mg PO HS 12/22/23 12/29/23 polyethylene glycol 3350 17 gram 17 g PO PRN PRN Constipation 12/22/23 12/29/23 oral powder packet (Miralax) bisacodyl 5 mg tablet 8.5 - 50 mg PO BID PRN Incontinence 12/29/23 12/29/23 Allergies Allergy/AdvReac Type Severity Reaction Status Date / Time No Known Allergies Allergy Verified 12/05/23 08:51 Review of Systems Review of Systems: All systems are reviewed and are negative unless stated otherwise in the HPI. [facility] Past Medical History Medical History Body mass index (BMI) 20.0-20.9, adult (06/05/19) Cerumen impaction Diabetes type 2, controlled Fracture of unspecified part of neck of left femur, initial encounter for closed fracture Full incontinence of feces Gastroesophageal reflux disease without esophagitis Hyperlipidemia Hypertension Impacted cerumen of both ears Incontinence of bowel Insomnia Left inguinal hernia Lesion of left external ear Low hemoglobin and low hematocrit Recent cerebral hemorrhage mutifocal intraparenchymal hemorrhage involving right BG, right frontal/temporal/parietal/occipital lobes 12/07/18 Stage 3b chronic kidney disease (CKD) Traumatic hemorrhage of cerebrum Urinary retention Vitamin deficiency, unspecified Surgical History Surgical History H/O basal cell carcinoma excision H/O colonoscopy H/O colonoscopy History of hip surgery 11/05/23- left bipolar hip; at [facility] ; Dr Buchanan History of melanoma excision Family History Family History Mother Carcinoma of colon Patient's mother is Acute myocardial infarction Sibling Family history of type 2 diabetes mellitus Malignant neoplasm of prostate Father Patient's father is Acute myocardial infarction Other Family history of cardiovascular disease Social History Social History Social History: Full Code per facility documentation Smoking packs per day: 1 Smoking cigarettes per day: 20.0 Years smoked: 4 Smoking pack-years: 4.00 Smoking status: Former smoker Tobacco type: cigarettes Second hand tobacco smoke exposure: No Alcohol intake: never Substance use: never Substance use type: does not use Do You Feel Safe in your Home?: Yes Lack of Transportation: No Lack of Food: Never True Current Housing: I Have Housing Concerned About Future Housing: No Difficulty Paying Gas/Electric Bills: No D
[2023-12-28 21:55] LABS: Basophils Absolute Auto 0.1 K/mm3 (0.0-0.1); Eosinophils Absolute Auto 0.5 K/mm3 (0-0.3); Eosinophils Percent Auto 4.7 % (0-4.4); Hematocrit 33.4 % (42.0-52.0); Hemoglobin 10.9 g/dL (14.0-18.0); Immature Granulocyte Absolute 0.07 K/mm3 (0.00-0.031); Immature Granulocyte Percent A 0.7 % (0-0.5); Lymphocytes Absolute Auto 2.21 K/mm3 (0.9-3.2); Lymphocytes Percent Auto 22.7 % (18.3-44.2); Mean Corpuscular HGB Conc 32.6 g/dl (32-36); Mean Corpuscular Hemoglobin 30.3 pg (26-34); Mean Corpuscular Volume 92.8 fl (80-100); Mean Platelet Volume 9.7 fl (7.4-10.4); Monocytes Absolute Auto 0.7 K/mm3 (0.1-0.6); Monocytes Percent Auto 7.3 % (2.6-8.5); Neutrophils Absolute Auto 6.2 K/mm3 (1.3-6.7); Neutrophils Percent Auto 63.6 % (45.5-73.1); Platelet Count Result 364 k/mm3 (150-375); Red Cell Distribution Width 14.3 % (11.5-14.5); White Blood Count 9.7 K/mm3 (4.5-10.0)
[2023-12-28 22:05] LABS: Alanine Aminotransferase 34 U/L (6-50); Albumin Level 2.7 g/dL (3.5-5.1); Alkaline Phosphatase 84 U/L (38-126); Anion Gap 1 mmol/L (4-12); Aspartate Amino Transferase 39 U/L (17-59); Bilirubin,Total 0.3 mg/dL (0.2-1.3); Blood Urea Nitrogen 15 mg/dL (9-20); Calcium 8.2 mg/dL (8.4-10.2); Carbon Dioxide 25 mmol/L (22-30); Chloride 109 mmol/L (98-107); Estimated CRCL calculation 36 ml/min; Estimated Glomerular Filt Rate 48; Glucose 215 mg/dL (65-110); Lipase 130 U/L (23-300); Potassium 3.7 mmol/L (3.4-5.0); Sodium 135 mmol/L (137-145)
[2023-12-28] MEDS: SODIUM CHLORIDE 0.9% IV 1,000 ML 300 ML IV CONT (22:05)
[2023-12-28 22:09] LABS: Prothrombin Time 13.6 Seconds (11.1-14.7)
[2023-12-28 22:10] LABS: Partial Thromboplastin Time 29.9 Seconds (22.3-36.8)
[2023-12-28 22:17] LABS: Troponin I 0.441 ng/mL (0.000-0.034)
[2023-12-28 22:37] LABS: Appearance Urine Clear (Clear); Bacteria Urine None Seen /hpf; Bilirubin Urine Negative (Negative); Blood Urine Non-Hemolyzed Trace (Negative); Color Urine Yellow (Yellow); Glucose Urine UA Negative (Negative); Ketones Urine Negative (Negative); Leukocyte Esterase Ur Trace LEU/UL (Negative); Nitrate Urine Negative (Negative); Protein Urine Trace mg/dL (Negative); Specific Grav Ur 1.011 (1.001-1.035); Squamous Epithelial Cell Urine None Seen /hpf (Few); Urobilinogen Urine 0.2 mg/dL (<2.0); pH Urine 5.5 (5.0-9.0)
[2023-12-28 22:39] LABS: Add Urine Microscopic? YES
--- NOTE | 2023-12-28 22:57 | PC.NURSE ---
VORB to give another 200ml bolus to equal a 500ml bolus. Patient VS stable, bp a little soft 99/64 so ERP gave order to only give fluids at this time. Patient tolerating well, denies any cp or any complaints. Patient HR ranging from 110s-130s.
[2023-12-28 23:10] LABS: Influenza A QL RT-PCR Negative (Negative); Influenza B QL RT-PCR Negative (Negative); RSV RNA, RT-PCR Negative (Negative); SARS-CoV-2 RNA PCR Negative (Negative)
[2023-12-28] MEDS: dilTIAZem HCl INJ 25 MG/5 ML VIAL 10 MG IV PUSH (23:38)
[2023-12-28] MEDS: ONDANSETRON INJ 4 MG/2 ML VIAL IV PUSH (23:42)
--- NOTE | 2023-12-28 23:43 | PC.NURSE ---
VORB per to give rest of liter of NS. ERP in room at bedside.
[2023-12-29] VITALS (58 sets, daily range): BP systolic 73–120; BP diastolic 41–85; PULSE 58–152; RESP 17–38; TEMP 36.3–36.5; O2SAT 90–99; BMI 22.6
[2023-12-29] MEDS: SODIUM CHLORIDE 0.9% IV 1,000 ML 150 ML IV CONT (00:26)
[2023-12-29] MEDS: dilTIAZem HCl INJ 25 MG/5 ML VIAL 10 MG IV PUSH (00:56)
[2023-12-29] MEDS: MIDAZOLAM HCL (*CRX) 2 MG/2 ML VIAL IV PUSH (01:05)
--- NOTE | 2023-12-29 01:06 | PC.NURSE ---
0105 VORB to give 2mg of versed for cardioversion. ERP, respiratory, this RN and another RN in room. Patient on 2L via NC. Monitor charged to 200J, sync. 0109 Shock delivered. HR went from 134bpm to 114bpm. Pts O2 increased from 2L to 5L NC.
--- NOTE | 2023-12-29 01:11 | PC.NURSE ---
Repeat ekg performed, ERP in room. Patient still in afib. VS 108bpm, 22RR, 82/54bp, 97% on 5L via NC. Pt arousable on calling and awake to touch and verbal stimuli. Patient has IV fluids going in as bolus per VORB.
--- NOTE | 2023-12-29 01:12 | ECG_ITS ---
Measurements Intervals [place] Rate: 103 P: * VA: * QRS: -70 QRSD: 142 T: 103 QT: 386 AVG RR: 579 QTc: 446 QTCB: 507 QTCF: 463 Interpretive Statements SINUS TACHYCARDIA LEFT BUNDLE BRANCH BLOCK SEE SCANNED COPY FOR SIGNATURE MTDD
--- NOTE | 2023-12-29 01:27 | PM.IMHP ---
H&P: HPI History of Present Illness Date/Time: 12/29/23 01:27 Chief Complaint: chest pain Narrative: This is an 83-year-old male past medical history significant for hypertension, atrial fibrillation, intracranial bleed, chronic kidney disease. patient resides at local facility he was brought for evaluation after complaining of chest pain and pressure. Found to have atrial fibrillation with rapid ventricular response. In emergency room patient was cardioverted. Patient is unable to provide any meaningful history states that he does not feel well. Preliminary workup was significant for chest x-ray with infiltrate a urinalysis shows WBCs present 6-10, Troponins x2 0.440.35 EXAMINATION:? XR chest 1V portable Exam Date/Time:? 12/28/2023 21:45 CDT HISTORY: chest pain, afib ? Comparison:? 12/22/2023. RESULT: Lines, tubes, and devices:? None. Lungs and pleura:? Segmental left basilar airspace disease. Streaky and subsegmental right basilar opacities. Mild left and trace right costophrenic angle blunting. Cardiomediastinal silhouette:? Stable. Other:? No acute osseous or upper abdominal finding. Ovoid opacity over the central upper abdomen may represent ingested material or external artifact. ? IMPRESSION: Segmental left basilar and subsegmental right basilar atelectasis/consolidation. Small left and trace right pleural effusions. Review of Systems Review of Systems: ROS unobtainable: Yes unobtainable due to medical condition ( acute illness) [facility] Past Medical History Medical History (Updated 12/29/23 @ 18:21 by Alfa Whitt MD) Body mass index (BMI) 20.0-20.9, adult (06/05/19) Cerumen impaction Diabetes type 2, controlled Fracture of unspecified part of neck of left femur, initial encounter for closed fracture Full incontinence of feces Gastroesophageal reflux disease without esophagitis Hyperlipidemia Hypertension Impacted cerumen of both ears Incontinence of bowel Insomnia Left inguinal hernia Lesion of left external ear Low hemoglobin and low hematocrit Recent cerebral hemorrhage mutifocal intraparenchymal hemorrhage involving right BG, right frontal/temporal/parietal/occipital lobes 12/07/18 Stage 3b chronic kidney disease (CKD) Traumatic hemorrhage of cerebrum Urinary retention Vitamin deficiency, unspecified Surgical History Surgical History H/O basal cell carcinoma excision H/O colonoscopy H/O colonoscopy History of hip surgery 11/05/23- left bipolar hip; at [facility] ; Dr Buchanan History of melanoma excision Family History Family History Mother Carcinoma of colon Patient's mother is Acute myocardial infarction Sibling Family history of type 2 diabetes mellitus Malignant neoplasm of prostate Father Patient's father is Acute myocardial infarction Other Family history of cardiovascular disease Social History Social History Social History: Full Code per facility documentation Smoking packs per day: 1 Smoking cigarettes per day: 20.0 Years smoked: 4 Smoking pack-years: 4.00 Smoking status: Former smoker Tobacco type: cigarettes Second hand tobacco smoke exposure: No Alcohol intake: never Substance use: never Substance use type: does not use Do You Feel Safe in your Home?: Yes Lack of Transportation: No Lack of Food: Never True Current Housing: I Have Housing Concerned About Future Housing: No Difficulty Paying Gas/Electric Bills: No Difficulty Paying for Meds: No Currently Unemployed: No Education: Bachelor's Degree Difficulty w/ Childcare or Family Care: No Living arrangements: intermediate Additional living arrangements comments: previously living at [place]; currently at [facility] since 12/13/23 Occ
[2023-12-29 01:34] LABS: Troponin I 0.355 ng/mL (0.000-0.034)
[2023-12-29] MEDS: CEFEPIME 1 GM/NS 50 ML 1 GM/50 ML BAG IVPB (02:41)
--- NOTE | 2023-12-29 02:46 | ECG_ITS ---
Measurements Intervals [place] Rate: 99 P: * [place]: * QRS: -69 QRSD: 142 T: 99 QT: 371 AVG RR: 601 QTc: 428 QTCB: 478 QTCF: 439 Interpretive Statements NORMAL SINUS RHYTHM LEFT BUNDLE BRANCH BLOCK MARKED LEFT AXIS DEVIATION [QRS AXIS < -30] SEE SCANNED COPY FOR SIGNATURE MTDD
[2023-12-29] MEDS: AZITHROMYCIN 500 MG/NS 250 ML 500 MG/250 ML BAG 250 MG IVPB (03:09)
[2023-12-29 04:03] LABS: MRSA (PCR) NOT DETECTED (NOT DETECTE)
--- NOTE | 2023-12-29 04:11 | ECG_ITS ---
Measurements Intervals [place] Rate: 115 P: * [place]: * QRS: -86 QRSD: 159 T: 88 QT: 371 AVG RR: 518 QTc: 439 QTCB: 515 QTCF: 461 Interpretive Statements SUSPECT ATRIAL FLUTTER WITH 2:1 CONDUCTION MARKED LEFT AXIS DEVIATION [QRS AXIS < -30] RIGHT BUNDLE BRANCH BLOCK CONSIDER ACUTE ANTERIOR INJURY ABNORMAL ECG SEE SCANNED COPY FOR SIGNATURE MTDD
--- NOTE | 2023-12-29 04:44 | ADMGEN ---
This patient, Piyush Ayon, was admitted to IMU Room 205-02. Patient/family oriented to hospital policies and general routines including ID bracelet, bed and alarms, visiting hours, pain management, procedures, bathroom and other care routines, personal items, smoking policy, room service/diet, and visiting hours. Information on how to activate the Rapid Response Team has been discussed. Patient/Family are encouraged to report perceived risks to care and to ask questions if they do not understand what they are told or what they should do.
[2023-12-29] MEDS: SODIUM CHLORIDE 0.9% IV 1,000 ML 999 ML IV CONT (05:28)
[2023-12-29] MEDS: VANCOMYCIN 1,750 MG/NS 500 ML 1,750 MG/500 ML BAG 250 MG IVPB (05:28)
[2023-12-29] MEDS: MIDODRINE HCL 10 MG TABLET PO (05:29)
[2023-12-29] MEDS: MIDODRINE HCL 2.5 MG TABLET 5 MG PO (05:29)
[2023-12-29] MEDS: MAGNESIUM SULF 1 GM/D5W 100 ML 1 GM/100 ML BAG IVPB (09:27)
[2023-12-29 12:54] LABS: Glucose Point of Care 303 mg/dl (65-105)
--- NOTE | 2023-12-29 13:05 | PCCCNOTE ---
On 12/29/23, the student, [ eDlaney Chi], provided care and completed [facility] documentation on this patient. I have reviewed the student's documentation and agree with the findings.
[2023-12-29 13:42] LABS: Glucose Point of Care 289 mg/dl (65-105)
[2023-12-29] MEDS: ACETAMINOPHEN 325 MG TABLET 650 MG PO (14:45)
[2023-12-29 16:27] LABS: Glucose Point of Care 290 mg/dl (65-105)
[2023-12-29] MEDS: INSULIN ASPART (*BKC) 100 UNITS/ML SUB-Q (17:27)
[2023-12-29] MEDS: SENNOSIDES 8.6 MG TABLET PO (17:27)
--- NOTE | 2023-12-29 18:16 | PM.IMPN ---
Progress Note: A&P Assessment and Plan (1) Atrial fibrillation with RVR: Code(s): I48.91 - Unspecified atrial fibrillation Status: Acute Assessment and Plan: HR varies from NSR in 90s to 30s with 3rd degree AV block Possible SSS, however will need to observe while holding metoprolol No definite sign of infection as a precipitating factor Anticoagulated at present, however high risk for falls and bleed after hospital discharge 12/28 Cardiology consulted (2) Essential hypertension: Code(s): I10 - Essential (primary) hypertension Status: Acute Assessment and Plan: Controlled (3) Non-ST elevation MO (NSTEMI): Code(s): I21.4 - Non-ST elevation (NSTEMI) myocardial infarction Status: Acute Assessment and Plan: Likely demand due to AFIB RVR (4) Chronic kidney disease, stage 3a: Code(s): N18.31 - Chronic kidney disease, stage 3a Status: Acute Assessment and Plan: 12/27 creatinine 1.4 (5) Protein calorie malnutrition: Code(s): E46 - Unspecified protein-calorie malnutrition Status: Acute Assessment and Plan: Encourage PO intake Subjective Date/time seen: 12/29/23 18:16 Interval history: Admitted 12/27 with AF RVR and moderate chest discomfort. BP dropped with diltiazem bolus 10mg x 2, so cardioverted to NSR. Still with soreness in chest today but no pain as he had 12/27. No n/v. No abd pain. No sob. Review of Systems Review of Systems: All systems reviewed & are unremarkable except as noted in HPI and below Exam Narrative: HEENT: PERRL, sclerae nonicteric, pharyngeal mucosa pink and intact NECK: No JVD CHEST: Clear to auscultation. Normal effort. HEART: NL S1/S2, regular, no murmur ABDOMEN: BS+, soft, nontender, no mass, no bruits EXTREMITIES: No cyanosis, edema, or clubbing NEUROLOGIC: CN intact and symmetric to inspection. MUSCULOSKELETAL: No deformity to visual inspection. PSYCH: Alert. Oriented to person, place, and time. Objective Data Vital Signs Vital Signs: Vital Signs - 24 hr 12/28/23 21:30 12/28/23 21:39 12/28/23 21:47 Temperature 98.5 F Pulse Rate 124 H 123 H Respiratory Rate 22 H Blood Pressure 118/73 Pulse Oximetry 94 96 Oxygen Delivery Room Air Oxygen Flow Rate 12/28/23 21:38 12/28/23 21:39 12/28/23 21:46 Temperature Pulse Rate 137 H 121 H 148 H Respiratory Rate 15 21 H 14 Blood Pressure 115/71 118/83 Pulse Oximetry 95 94 94 Oxygen Delivery Oxygen Flow Rate 12/28/23 22:01 12/28/23 22:15 12/28/23 22:30 Temperature Pulse Rate 125 H 131 H 129 H Respiratory Rate 28 H 22 H 21 H Blood Pressure 110/71 Pulse Oximetry 92 92 92 Oxygen Delivery Oxygen Flow Rate 12/28/23 22:31 12/28/23 22:45 12/28/23 23:00 Temperature Pulse Rate 126 H 128 H 129 H Respiratory Rate 21 H 21 H 23 H Blood Pressure 99/64 L Pulse Oximetry 95 93 91 Oxygen Delivery Oxygen Flow Rate 12/28/23 23:01 12/28/23 23:15 12/28/23 23:26 Temperature Pulse Rate 130 H 139 H 128 H Respiratory Rate 23 H 27 H 25 H Blood Pressure 94/63 L 91/65 L Pulse Oximetry 93 91 92 Oxygen Delivery Oxygen Flow Rate 12/28/23 23:30 12/28/23 23:31 12/28/23 23:43 Temperature Pulse Rate 157 H 135 H 110 H Respiratory Rate 20 21 H 28 H Blood Pressure 100/63 84/59 L Pulse Oximetry 92 90 95 Oxygen Delivery Oxygen Flow Rate 12/28/23 23:46 12/28/23 23:56 12/29/23 00:54 Temperature Pulse Rate 119 H 124 H Respiratory Rate 24 H 15 Blood Pressure 85/60 L 89/64 L Pulse Oximetry 96 91 97 Oxygen Delivery Nasal Cannula Oxygen Flow Rate 2 12/28/23 23:57 12/29/23 00:09 12/29/23 00:15 Temperature Pulse Rate 127 H 139 H 133 H Respiratory Rate 25 H 25 H 22 H Blood Pressure 80/59 L Pulse Oximetry 91 94 94 Oxygen Delivery Oxygen Flow Rate 12/29/23 00:16 12/29/23 00:30 12/29/23 00:31 Temperature Pulse Rate 135 H 133 H 143 H Respi
[2023-12-29 20:05] LABS: Glucose Point of Care 211 mg/dl (65-105)
[2023-12-29] MEDS: MELATONIN 3 MG TABLET 9 MG PO (21:20)
[2023-12-29] MEDS: INSULIN GLARGINE (*BKC) 100 UNITS/ML 16 UNITS SUB-Q (21:21)
[2023-12-29] MEDS: TAMSULOSIN HCL 0.4 MG CAPSULE PO (21:21)
[2023-12-29] MEDS: ENOXAPARIN 80 MG/0.8 ML SYRINGE SUB-Q (21:22)
[2023-12-30] VITALS (25 sets, daily range): BP systolic 91–150; BP diastolic 52–99; PULSE 60–97; RESP 17–38; TEMP 36.3–36.8; O2SAT 91–100
[2023-12-30 04:47] LABS: Hematocrit 32.8 % (42.0-52.0); Hemoglobin 10.3 g/dL (14.0-18.0); Mean Corpuscular HGB Conc 31.4 g/dl (32-36); Mean Corpuscular Hemoglobin 30.1 pg (26-34); Mean Corpuscular Volume 95.9 fl (80-100); Mean Platelet Volume 9.8 fl (7.4-10.4); Platelet Count Result 371 k/mm3 (150-375); Red Blood Count 3.42 M/mm3 (4.6-6.20); Red Cell Distribution Width 14.8 % (11.5-14.5)
[2023-12-30 05:01] LABS: Anion Gap 9 mmol/L (4-12); Blood Urea Nitrogen 30 mg/dL (9-20); Calcium 8.5 mg/dL (8.4-10.2); Carbon Dioxide 19 mmol/L (22-30); Chloride 109 mmol/L (98-107); Estimated CRCL calculation 23 ml/min; Estimated Glomerular Filt Rate 25; Glucose 155 mg/dL (65-110); Potassium 4.3 mmol/L (3.4-5.0); Sodium 137 mmol/L (137-145)
[2023-12-30 07:51] LABS: Glucose Point of Care 157 mg/dl (65-105)
[2023-12-30] MEDS: ATORVASTATIN 40 MG TABLET PO ×2 (09:28→22:36)
[2023-12-30] MEDS: PANTOPRAZOLE 40 MG TABLET PO (09:29)
[2023-12-30] MEDS: FINASTERIDE 5 MG TABLET PO (09:29)
[2023-12-30] MEDS: polyethylene glycoL 3350 17 GM POWD.PACK PO (09:29)
[2023-12-30] MEDS: SENNOSIDES 8.6 MG TABLET PO ×2 (09:29→18:18)
[2023-12-30] MEDS: ASPIRIN 81 MG ENTERIC TABLET PO (09:29)
[2023-12-30] MEDS: lisinopriL 10 MG TABLET PO (09:32)
[2023-12-30] MEDS: ASCORBIC ACID 500 MG TABLET 1000 MG PO (09:32)
[2023-12-30] MEDS: MULTIVITAMINS THERAPEUTIC TAB (*BKC) 1 TABLET PO (09:32)
[2023-12-30 12:00] LABS: Procalcitonin 0.2 ng/mL
--- NOTE | 2023-12-30 12:45 | PM.CNCAR ---
Assessment and Plan Assessment and plan (1) Atrial fibrillation with RVR: Code(s): I48.91 - Unspecified atrial fibrillation Status: Acute Plan This is an 83-year-old man with noninvasive evidence of coronary disease in previous anteroapical infarction. He has been seen now twice in the hospital with atrial fib with RVR he also has rhythm strips that suggest atypical atrial flutter or a slow atrial tachycardia as well. He was discharged recently with a modest dose of metoprolol to treat this. That has been stopped because when he is not in atrial fibrillation he was somewhat bradycardic although I do not believe that we were seeing third-degree heart which is well was the concern on physicians that saw him over the weekend. In any event I am going to start a loading dose of amiodarone orally today 400 mg q.12 hours in hopes of maintaining sinus rhythm without using a beta-giovanni. As stated and everyone else's previous notes he is not an acceptable candidate for systemic anticoagulation. At this juncture I do not see arrhythmias on telemetry a least that would lead me to implant a pacemaker in this gentleman. Will follow him with you while he is in the hospital. Certainly if we see evidence of problematic/high-grade AV block a pacemaker implant might be considered at some point but I do not believe that is what we are seeing at this moment Bill Morillo MD [facility] History of Present Illness History of Present Illness Consult date/time: 12/30/23 12:45 Reason For Visit: A fib rvr Narrative: This is an 83-year-old man who was a not known to me prior to this consultation he was seen by my partners recently with intermittent/paroxysmal atrial fibrillation. The patient was admitted here yesterday from the emergency room after he was sent by his [facility] because of recurrent AFib with RVR. The patient's onset of atrial fibrillation is not known to me but he was seen here recently earlier in the month by my partners with the same arrhythmia. He was treated with metoprolol and was not felt to be a candidate for anticoagulation because of history of frequent falling with significant trauma as well as a history of intracranial hemorrhage in the past. [facility] of metoprolol. His noninvasive evaluation by ECG and ECHO demonstrated evidence of what appears to be a previous anteroapical infarction of unknown duration. The patient after being seen in the emergency room was treated with some intravenous diltiazem which has been stopped. He was taken off of metoprolol. His ECG upon arrival showed atrial fibrillation with a rapid ventricular response subsequent EKG demonstrated evidence of what appears to be an ectopic atrial rhythm with variable conduction. I am not able to see the electrocardiograms directly since the ECG system is not functional over the weekend. The telemetry strips however appear to show an ectopic atrial tachycardia with variable conduction. In this setting I am seeing him in consultation. He is taking no medication for this at all since his beta-giovanni has been stopped he is feeling comfortable at this time and denies any other complaints. There were some comments in the record as to his ECG demonstrating evidence of high-grade even third-degree AV block. Most of the strips that I am reviewing appear to show evidence of the atrial tachycardia with block I do not believe we are seeing sinus rhythm with AV block. Review of Systems Constitutional: Constitutional: Reports lethargy Eyes: Eyes: Reports no additional eye complaints ENT: Reports system reviewed and no additional complaints, except as documented Cardiovascular: Cardiovascular: Reports as per HPI and Reports chest pain Respiratory: Respiratory: Reports no additional respiratory complaints Gastrointestinal: Gastrointestinal: Reports no additional gastrointestinal complaints Musculoskeletal:
[2023-12-30] MEDS: AMIODARONE HCL 200 MG TABLET 400 MG PO ×2 (14:13→22:35)
[2023-12-30 16:58] LABS: Glucose Point of Care 159 mg/dl (65-105)
--- NOTE | 2023-12-30 18:54 | PM.IMPN ---
Progress Note: A&P Assessment and Plan (1) Stage 3b chronic kidney disease (CKD): Code(s): N18.32 - Chronic kidney disease, stage 3b Status: Inactive (2) Diabetes type 2, controlled: Qualifiers: Diabetes mellitus supervisor intermediates insulin use: without supervisor intermediates use Diabetes mellitus complication status: with unspecified complications Qualified Code(s): E11.8 - Type 2 diabetes mellitus with unspecified complications Code(s): E11.9 - Type 2 diabetes mellitus without complications Status: Acute (3) Atrial fibrillation with RVR: Code(s): I48.91 - Unspecified atrial fibrillation Status: Acute (4) Pneumonia: Code(s): J18.9 - Pneumonia, unspecified organism Status: Acute Plan #atypical atrial flutter and flutter with SVR, possibly sick sinus syndrome -patient had tachyarrhythmia which was thought to be afib. there was also concern for heart block over the weekend. Cardiology reviewed the images and believe he does not have heart block. Recommendation is to hold beta blockade and start amiodarone to stablize rhythm. No pacemaker needed at this time. -lovenox for AC #Oliguria -decreased urine output, low BP, possibly developing ATN -will continue to monitor. patient is tolerating PO intake, if labs worsen by tomorrow will hydrate #Chronic conditions -HLD: aspirin, statin -BPH: flomax, proscar -constipation: senna, miralax -GERD: protonix -essential HTN: lisinopril -type 2 DMII: lantus, sliding scale insulin, hypoglycemia protocol, accuchecks ACHS Diet: heart healthy diet DVT ppx: lovenox Code status: Full code Disposition: in >3 days Subjective Date/time seen: 12/30/23 18:54 Interval history: patient seen examined. He appears to be doing okay with no new complaints. While holding metoprolol his blood pressure heart rate are improving. He is still having low urine output which is likely secondary to his hypotension. Will continue monitor his renal function and urine output. Cardiology does not need patient needs a pacemaker at this time, continue monitoring. We are starting amiodarone and will monitor his clinical response. Review of Systems Review of Systems: 10 point ROS complete, negative other than what is specified in HPI. Exam Narrative: - GENERAL: Pleasant frail male in no acute distress - EYES: EOMI. Anicteric. - HENT: Moist mucous membranes. - LUNGS: Clear to auscultation bilaterally, no wheezing, rhonchi, or rales. - CARDIOVASCULAR: Regular rate and rhythm. No murmur. No JVD. - ABDOMEN: Soft, non-tender and non-distended. No palpable masses. - EXTREMITIES: No edema. Peripheral pulses 2+. Non-tender. - NEUROLOGIC: No focal neurological deficits. CN II-XII grossly intact. - PSYCHIATRIC: Awake, Alert and oriented x 3. Appropriate mood and affect. - SKIN: No rashes or lesions. Warm. - LYMPH: No cervical lymphadenopathy. Objective Data Vital Signs Vital Signs: Vital Signs - 24 hr 12/29/23 19:56 12/29/23 20:00 12/29/23 20:00 Temperature 36.4 C Pulse Rate 78 76 Respiratory Rate 22 H Blood Pressure 105/58 L Pulse Oximetry 97 97 Oxygen Delivery Nasal Cannula Oxygen Flow Rate 2 12/29/23 22:00 12/30/23 00:12 12/30/23 00:00 Temperature 36.4 C Pulse Rate 85 97 74 Respiratory Rate 20 Blood Pressure 150/82 H Pulse Oximetry 94 Oxygen Delivery Oxygen Flow Rate 12/30/23 00:00 12/30/23 02:00 12/30/23 04:00 Temperature Pulse Rate 97 72 65 Respiratory Rate 20 Blood Pressure Pulse Oximetry 94 Oxygen Delivery Nasal Cannula Oxygen Flow Rate 2 12/30/23 04:00 12/30/23 04:33 12/30/23 06:00 Temperature 36.4 C Pulse Rate 65 66 67 Respiratory Rate 20 18 Blood Pressure 148/72 H Pulse Oximetry 94 95 Oxygen Delivery Nasal Cannula Oxygen Flow Rate 2 12/30/23 07:30 12/30/23 08:41 12/30/23 08:40 Temperature 36.8 C Pulse Rate 63 Respiratory Rate 17 Blood Pressure 91/53 L 109/
[2023-12-30 20:50] LABS: Glucose Point of Care 147 mg/dl (65-105)
[2023-12-30] MEDS: MELATONIN 3 MG TABLET 9 MG PO (22:35)
[2023-12-30] MEDS: ENOXAPARIN 80 MG/0.8 ML SYRINGE SUB-Q (22:36)
[2023-12-30] MEDS: TAMSULOSIN HCL 0.4 MG CAPSULE PO (22:36)
[2023-12-30] MEDS: INSULIN GLARGINE (*BKC) 100 UNITS/ML 16 UNITS SUB-Q (22:37)
[2023-12-30 23:05] LABS: Alveolar/Arterial O2 Gradient 160.8 mmHg; Base Excess ABG -10.2 mEq/l (+/-2.0); Carboxyhemoglobin 0.3 % THb (0-2.0); Fractional Inspired Oxygen 36 %; HCO3 ABG 13.1 mEq/l (22.0-26.0); Methemoglobin ABG 0.1 %THb (0-1.5); Oxygen Content ABG 15.1 %vol (16.0-22.0); Oxygen Saturation ABG 94.1 % (95.0-100.0); Oxyhemoglobin 91.4 % THb (90.0-100.0); PO2 ABG 69.6 mmHg (80.0-100.0); PO2 FiO2 Ratio Arterial Blood 1.93 %; Reduced Hemoglobin 8.2 %THb (0-5.0); Total Hemoglobin 11.7 g/dL (12.0-18.0)
[2023-12-30 23:07] LABS: PCO2 ABG 22.7 mmHg (35.0-45.0)
[2023-12-30 23:08] LABS: Device NASAL CANNULA; Modified Allen's Test Pass; Site Drawn RIGHT RADIAL
[2023-12-30 23:25] LABS: Hematocrit 32.9 % (42.0-52.0); Hemoglobin 10.4 g/dL (14.0-18.0); Mean Corpuscular HGB Conc 31.6 g/dl (32-36); Mean Corpuscular Hemoglobin 30.1 pg (26-34); Mean Corpuscular Volume 95.1 fl (80-100); Mean Platelet Volume 9.7 fl (7.4-10.4); Platelet Count Result 349 k/mm3 (150-375); Red Blood Count 3.46 M/mm3 (4.6-6.20); White Blood Count 18.8 K/mm3 (4.5-10.0)
[2023-12-30] MEDS: MORPHINE SULFATE (*CRX) 4 MG/ML INJ IM (23:25)
[2023-12-30 23:35] LABS: Anion Gap 13 mmol/L (4-12); Blood Urea Nitrogen 39 mg/dL (9-20); Calcium 8.6 mg/dL (8.4-10.2); Carbon Dioxide 17 mmol/L (22-30); Chloride 108 mmol/L (98-107); Estimated CRCL calculation 19 ml/min; Estimated Glomerular Filt Rate 19; Glucose 177 mg/dL (65-110); Potassium 4.2 mmol/L (3.4-5.0); Sodium 138 mmol/L (137-145)
--- NOTE | 2023-12-30 23:37 | PC.NURSE ---
Addendum entered by Dexter Melara RN 12/31/23 00:10: 1900 viewed patient upon receiving report. No distress noted 0 went to give meds. Pt was tachypneic with resps in the 30's. Pt complained of being sob. Notified provider and received orders. 0 cxr completed and read, placed call to provider. No response 2250, placed another call to provider. 2255 pt remained in resp. distress, now diaphoretic, audibly gasping for air, RAGMAN called, placed pt on bipap, labs drawn, received orders for lasix. will monitor here in IMU for tonight Original Note: 0 viewed patient upon receiving report. No distress noted 0 went to give meds. Pt was tachypneic with resps in the 30's. Pt complained of being sob. Notified provider and received orders. 2230 cxr completed and read, placed call to provider. No response 0, placed another call to provider. 2355 pt remained in resp. distress, now diaphoretic, audibly gasping for air, RAGMAN called, placed pt on bipap, labs drawn, received orders for lasix. will monitor here in IMU for tonight
[2023-12-30 23:38] LABS: Lactic Acid Reflex 5.7 mmol/L (0.7-2.0)
[2023-12-31] VITALS (48 sets, daily range): BP systolic 75–125; BP diastolic 46–74; PULSE 36–104; RESP 17–32; TEMP 34.1–36.6; O2SAT 90–100
[2023-12-31 02:23] LABS: Reflex Lactic Acid Yes or No Add Lactic
[2023-12-31] MEDS: FUROSEMIDE INJ 40 MG/4 ML VIAL IV PUSH (02:23)
[2023-12-31 03:02] LABS: Hematocrit 32.6 % (42.0-52.0); Hemoglobin 10.4 g/dL (14.0-18.0); Mean Corpuscular HGB Conc 31.9 g/dl (32-36); Mean Corpuscular Hemoglobin 30.3 pg (26-34); Mean Platelet Volume 10.3 fl (7.4-10.4); Platelet Count Result 319 k/mm3 (150-375); Red Blood Count 3.43 M/mm3 (4.6-6.20); Red Cell Distribution Width 15.1 % (11.5-14.5); White Blood Count 19.2 K/mm3 (4.5-10.0)
[2023-12-31 03:13] LABS: Alanine Aminotransferase 240 U/L (6-50); Albumin Level 3.2 g/dL (3.5-5.1); Alkaline Phosphatase 105 U/L (38-126); Anion Gap 9 mmol/L (4-12); Aspartate Amino Transferase 406 U/L (17-59); Bilirubin,Total 0.6 mg/dL (0.2-1.3); Blood Urea Nitrogen 41 mg/dL (9-20); Calcium 8.7 mg/dL (8.4-10.2); Carbon Dioxide 19 mmol/L (22-30); Chloride 109 mmol/L (98-107); Estimated CRCL calculation 19 ml/min; Estimated Glomerular Filt Rate 19; Glucose 182 mg/dL (65-110); Sodium 137 mmol/L (137-145)
[2023-12-31 03:16] LABS: Lactic Acid 4.3 mmol/L (0.7-2.0)
--- NOTE | 2023-12-31 03:40 | PM.EVENT ---
Event Note Event Note Event Note: rapid response was called to patient's room after patient was found in severe respiratory distress with respiratory rate in the 30s EXAMINATION:? XR chest 1V portable Exam Date/Time:? 12/30/2023 22:00 CDT HISTORY: shortness of breath ? Comparison:? 12/28/2023. RESULT: Lines, tubes, and devices:? None. Lungs and pleura:? Moderate diffuse reticular opacities. Segmental left basilar and subsegmental right basilar airspace disease. Mild left and trace right costophrenic angle blunting. Cardiomediastinal silhouette:? Stable. Other:? No acute osseous or upper abdominal finding. ? IMPRESSION: Moderate interstitial edema. Left basilar segmental and right basilar subsegmental atelectasis/consolidation, unchanged. Small left and trace right pleural effusion, unchanged. a/p 1-Acute respiratory failure 2-Fluid overload 3-Pneumonia 4-REBECA/CKD 5-Oliguria
[2023-12-31] MEDS: BUMETANIDE INJ 1 MG/4 ML VIAL 2.5 MG IV PUSH (05:08)
[2023-12-31 07:39] LABS: Glucose Point of Care 161 mg/dl (65-105)
[2023-12-31] MEDS: polyethylene glycoL 3350 17 GM POWD.PACK PO (08:40)
[2023-12-31] MEDS: ASPIRIN 81 MG ENTERIC TABLET PO (08:41)
[2023-12-31] MEDS: SENNOSIDES 8.6 MG TABLET PO (08:41)
[2023-12-31] MEDS: AMIODARONE HCL 200 MG TABLET 400 MG PO (08:41)
[2023-12-31] MEDS: FINASTERIDE 5 MG TABLET PO (08:42)
[2023-12-31] MEDS: PANTOPRAZOLE 40 MG TABLET PO (08:43)
--- NOTE | 2023-12-31 08:44 | PCOTNOTE ---
Addendum entered by Lauren Menezes, OT 12/31/23 13:25: Canceling therapy orders. Pt. has transferred to ICU and intubated at this time. Re-order therapy services when pt. medically appropriate to participate. Original Note: Attempted to see pt. for occupational therapy evaluation. Per nursing pt. is currently on 'bedrest' due to rapid response from last night. Will follow up with hospitalist regarding when pt. will donya appropriate to participate.
[2023-12-31] MEDS: ASCORBIC ACID 500 MG TABLET 1000 MG PO (08:45)
[2023-12-31] MEDS: MULTIVITAMINS THERAPEUTIC TAB (*BKC) 1 TABLET PO (08:45)
--- NOTE | 2023-12-31 09:55 | P.CONNP_ITS ---
Assessment and Plan Assessment and plan (1) REBECA (acute kidney injury): Code(s): N17.9 - Acute kidney failure, unspecified Status: Acute Assessment and Plan: * as noted on admission * suspect due to multiple issues: * Afib with RVR * hemodynamic instability on admission * infection/early sepsis * LYNDA-I use prior to admission * urinary retention * renal ultrasound done on 12/23/23 unremarkable * check urine studies and CPK * concerning that his urine output has declined and no good response to IV diuretics * remains at risk for needing LANCE CREWMEMBER/dialysis * follow trend of repeat labs and UOP (2) Stage 3b chronic kidney disease (CKD): Code(s): N18.32 - Chronic kidney disease, stage 3b Status: Chronic Assessment and Plan: * baseline creatinine runs around 1.4 - 1.8mg/dl * presumable secondary to hypertension, diabetes, vascular disease, urinary retention/chronic pulido catheter, and age-related change (3) Acute respiratory failure: Code(s): J96.00 - Acute respiratory failure, unspecified whether with hypoxia or hypercapnia Status: Acute Assessment and Plan: * as noted by imaging with pulmonary edema and possible pneumonia * on BiPAP but poor mentation noted -- remains at risk for needing intubation/mechanical ventilation * diuresis as tolerated * follow respiratory status (4) Atrial fibrillation with RVR: Code(s): I48.91 - Unspecified atrial fibrillation Status: Acute Assessment and Plan: * s/p cardioversion due to hemodynamic instability * on oral amiodarone (but doubt he will be able to take given AMS) * anticoagulated with lovenox * Cardiology following (5) Acute UTI: Code(s): N39.0 - Urinary tract infection, site not specified Status: Acute Assessment and Plan: * UA suspicious for possible infection * on antibiotics * follow cultures (6) Pneumonia: Code(s): J18.9 - Pneumonia, unspecified organism Status: Acute Assessment and Plan: * suggest by last chest x-ray * tenuous respiratory status noted * on antibiotics (7) Altered mental status: Code(s): R41.82 - Altered mental status, unspecified Status: Acute Assessment and Plan: * presumably due to acute illness and multiple current medical issues * check CT of head * follow mentation (8) Diabetes type 2, controlled: Qualifiers: Diabetes mellitus ruling machine feeder insulin use: without ruling machine feeder use Diabetes mellitus complication status: with unspecified complications Qualified Code(s): E11.8 - Type 2 diabetes mellitus with unspecified complications Code(s): E11.9 - Type 2 diabetes mellitus without complications Status: Acute Assessment and Plan: * follow accu-cheks * glycemic control per hospitalists I will continue to follow the patient with you while he remains hospitalized and make further recommendations as deemed necessary. Thank you for allowing me to participate in care of this patient. History of Present Illness Reason for Consult Consult date: 12/31/23 Reason for consult: acute renal failure (on chronic kidney disease) Chief Complaint Chief complaint: A fib rvr History of Present Illness Narrative: All the information that I have obtained is from review of the electronic medical record as well as discussion with the physician / nurses involved in the patient's care as he is unable to provide me with any history at this time due to his altered mental status.
--- NOTE | 2023-12-31 09:55 | PM.CNNEP ---
Assessment and Plan Assessment and plan (1) REBECA (acute kidney injury): Code(s): N17.9 - Acute kidney failure, unspecified Status: Acute Assessment and Plan: as noted on admission suspect due to multiple issues: Afib with RVR hemodynamic instability on admission infection/early sepsis LYNDA-I use prior to admission urinary retention renal ultrasound done on 12/23/23 unremarkable check urine studies and CPK concerning that his urine output has declined and no good response to IV diuretics remains at risk for needing PERIOPERATIVE EDUCATOR/dialysis follow trend of repeat labs and UOP (2) Stage 3b chronic kidney disease (CKD): Code(s): N18.32 - Chronic kidney disease, stage 3b Status: Chronic Assessment and Plan: baseline creatinine runs around 1.4 - 1.8mg/dl presumable secondary to hypertension, diabetes, vascular disease, urinary retention/chronic pulido catheter, and age-related change (3) Acute respiratory failure: Code(s): J96.00 - Acute respiratory failure, unspecified whether with hypoxia or hypercapnia Status: Acute Assessment and Plan: as noted by imaging with pulmonary edema and possible pneumonia on BiPAP but poor mentation noted -- remains at risk for needing intubation/mechanical ventilation diuresis as tolerated follow respiratory status (4) Atrial fibrillation with RVR: Code(s): I48.91 - Unspecified atrial fibrillation Status: Acute Assessment and Plan: s/p cardioversion due to hemodynamic instability on oral amiodarone (but doubt he will be able to take given AMS) anticoagulated with lovenox Cardiology following (5) Acute UTI: Code(s): N39.0 - Urinary tract infection, site not specified Status: Acute Assessment and Plan: UA suspicious for possible infection on antibiotics follow cultures (6) Pneumonia: Code(s): J18.9 - Pneumonia, unspecified organism Status: Acute Assessment and Plan: suggest by last chest x-ray tenuous respiratory status noted on antibiotics (7) Altered mental status: Code(s): R41.82 - Altered mental status, unspecified Status: Acute Assessment and Plan: presumably due to acute illness and multiple current medical issues check CT of head follow mentation (8) Diabetes type 2, controlled: Qualifiers: Diabetes mellitus usp insulin use: without usp use Diabetes mellitus complication status: with unspecified complications Qualified Code(s): E11.8 - Type 2 diabetes mellitus with unspecified complications Code(s): E11.9 - Type 2 diabetes mellitus without complications Status: Acute Assessment and Plan: follow accu-cheks glycemic control per hospitalists I will continue to follow the patient with you while he remains hospitalized and make further recommendations as deemed necessary. Thank you for allowing me to participate in care of this patient. History of Present Illness Reason for Consult Consult date: 12/31/23 Reason for consult: acute renal failure (on chronic kidney disease) Chief Complaint Chief complaint: A fib rvr History of Present Illness Narrative: All the information that I have obtained is from review of the electronic medical record as well as discussion with the physician / nurses involved in the patient's care as he is unable to provide me with any history at this time due to his altered mental status. The patient is an 83-year-old male with multiple medical problems as outlined below who presented to [facility] Emergency Room a few days ago with complaints of chest pain. Subsequent workup and evaluation emergency room demonstrated the patient be in atrial fibrillation with RVR and because he was hemodynamically unstable (systolic BP in the mid 70s), he was cardioverted. Subsequent testing demonstrated an abnormal urinalysis highly suggestive of urin
[2023-12-31] MEDS: LORazepam (*CRX) 1 MG TABLET PO (10:13)
--- NOTE | 2023-12-31 10:27 | P.CDI_ITS ---
CDI Query Clarification Request Documentation in the medical record indicates that this patient has been diagnosed as having Protein calorie malnutrition. Additional findings also documented in the medical record: (5) Protein calorie malnutrition: ?Code(s): E46 - Unspecified protein-calorie malnutrition ?Status:?Acute ?Assessment and Plan: * Encourage PO intake Please clarify severity of protein calorie malnutrition if known: * Mild * Moderate * Severe * Other/ Uspecified <Stacy Mtz RN - Last Filed: 12/31/23 10:32> Documentation in the medical record indicates that this patient has been diagnosed as having Protein calorie malnutrition. Additional findings also do cumented in the medical record: (5) Protein calorie malnutrition: ?Code(s): E46 - Unspecified protein-calorie malnutrition ?Status:?Acute ?Assessment and Plan: * Encourage PO intake Please clarify severity of protein calorie malnutrition if known: * Mild * Moderate * Severe * Other/ Uspecified Patient has severe protein calorie malnutrition <Ney Cotto DO - Last Filed: 12/31/23 11:25>
--- NOTE | 2023-12-31 11:19 | PM.PNCARD ---
Progress Note: A&P Assessment and Plan (1) Complete heart block: Code(s): I44.2 - Atrioventricular block, complete Status: Acute Assessment and Plan: This morning upon my evaluation, patient in sinus with prominent first-degree AVB on tele, however, a few minutes later, he became bradycardic down to the 30s and tele showed complete heart block. As patient is mentally altered and not answering questions, discussed the clinical situation with the patient's brother. Patient's brother would like him to be full code at this time. Recommend transvenous pacer given CHB, brother agreeable, consent obtained from the brother via telephone with the nurse to witness. Will place transvenous pacer in the geoscience laboratory technician. Will stop the Amiodarone. Will discuss plans for possible permanent pacemaker with Dr. Morillo. (2) Atrial fibrillation with RVR: Code(s): I48.91 - Unspecified atrial fibrillation Status: Acute Assessment and Plan: New diagnosis of atrial fibrillation last admission. Presented to the ER on 12/27 in atrial fibrillation with RVR. He was cardioverted in the ED for RVR with hypotension with SBP 75/58mmHg. Unable to initiate systemic anticoagulation given his recurrent falls, history of intraparenchymal hemorrhage which precise details remain unclear whether this was a traumatic event or spontaneous as he was found on the ground.? Not an anticoagulation candidate at this time given the above fall risk, history of cerebral intraparenchymal hemorrhage.? Patient remains in elevated risk for hemorrhagic and embolic stroke complications.? Patient has multiple comorbidities as a high risk for serious life-threatening complications in this regard. (3) Acute respiratory failure: Code(s): J96.00 - Acute respiratory failure, unspecified whether with hypoxia or hypercapnia Status: Acute Assessment and Plan: Overnight on 12/29-, patient was found to be in severe respiratory distress with respiratory rate in the 30s. He was placed on BIPAP. CXR with moderate pulmonary edema. He was given Lasix last night and Bumex early this morning, however, has had poor urine output. Has altered mental status on BIPAP, and is not opening eyes or answering questions which is of concern. Given the CHB and need for temporary transvenous pacer, patient likely unable to lay flat on geoscience laboratory technician table. Patient was intubated by Dr. Kong. (4) Acute kidney injury superimposed on chronic kidney disease: Code(s): N17.9 - Acute kidney failure, unspecified; N18.9 - Chronic kidney disease, unspecified Status: Acute Assessment and Plan: SCr is up to 3.10. Poor urine output response to Lasix and Bumex. Nephrology consulted. Plan Recommendations and plan discussed with patient's brother via phone, [employer]library Loan Services Librarian. Subjective Date/time seen: 12/31/23 11:19 Interval history: Reason for visit: Atrial fibrillation with RVR HPI: This is an 83-year-old man who was a not known to me prior to this consultation he was seen by my partners recently with intermittent/paroxysmal atrial fibrillation.? The patient was admitted here yesterday from the emergency room after he was sent by his snf because of recurrent AFib with RVR.? The patient's onset of atrial fibrillation is not known to me but he was seen here recently earlier in the month by my partners with the same arrhythmia.? He was treated with metoprolol and was not felt to be a candidate for anticoagulation because of history of frequent falling with significant trauma as well as a history of intracranial hemorrhage in the past.? He was discharged back to his nursing home facility on a modest dose of metoprolol.? His noninvasive evaluation by ECG and ECHO demonstrated evidence of what appears to be a previous anteroapical infarction of unknown duration.? The patient after being seen in the emergency room was treated with some intravenous diltiazem which has been stopped.? He was lyndsay
[2023-12-31] MEDS: ATROPINE SULFATE 1 MG/10 ML SYRINGE IV PUSH (11:25)
[2023-12-31] MEDS: ATROPINE SULFATE 1 MG/10 ML SYRINGE (11:25)
[2023-12-31 11:35] LABS: Glucose Point of Care 168 mg/dl (65-105)
[2023-12-31] MEDS: MIDAZOLAM HCL (*CRX) 2 MG/2 ML VIAL 4 MG IV PUSH (11:55)
[2023-12-31] MEDS: NOREPINEPHRINE 8 MG/D5W 250 ML 8 MG/250 ML BAG 9.38 MG IV CONT (11:58)
[2023-12-31] MEDS: ROCURONIUM BROMIDE 50 MG/5 ML VIAL IV PUSH (12:01)
[2023-12-31] MEDS: ETOMIDATE 20 MG/10 ML AMPUL IV PUSH (12:01)
--- NOTE | 2023-12-31 12:30 | PCRCNOTE ---
I could not perform the arterial blood gas due to the emergent temporary pacemaker placement done in the Water System Operator. Heart rate was in the 30s-40s before pacemaker was placed.
--- NOTE | 2023-12-31 12:30 | WPDPROCEDUR ---
Procedures Intubation Intubation Date: 12/31/23 Intubation Time: 11:50 A pre-procedural Time-Out was completed immediately before starting the procedure and confirmed: Patient Identification, Site, Procedure, Patient Position and the Availability of Requisite Equipment: Yes Sedative: etomidate Mg given: 20 Paralytic: rocuronium Mg given: 50 Laryngoscope: fiber optic video scope Assist device used: fiber optic device ET tube size: 7.5 Tube secured depth (cm): 24 Tube secured location: lips Tube placement confirmation: visualized tube passing through cords, equal breath sounds bilaterally, no breath sounds over epigastrium and confirmation by capnometry Patient tolerated procedure: well Intubation complications: other Additional comments: Patient has really poor dentition. Even before I inserted glide scope patient had a lower incisor which was dangling of his gum and came out when I tried to to open his mouth with my hand
--- NOTE | 2023-12-31 12:33 | WPDCNINT ---
Assessment and Plan Assessment and plan (1) Acute respiratory failure: Code(s): J96.00 - Acute respiratory failure, unspecified whether with hypoxia or hypercapnia Status: Acute Assessment and Plan: Acute Respiratory failure secondary to encephalopathy, pulmonary edema, possible pneumonia Patient on BiPAP with poor mental status and hemodynamically unstable. Needs transvenous pacemaker placement and will need to lay flat for the procedure. Patient intubated emergently after transferring to ICU. Chest x-ray reviewed and will advance ET tube by 2 cm ABG ordered and pending Ventilator settings reviewed Will check CT chest as patient will be going to radiology for head CT to further evaluate Patient has not responded to diuretics and may need hemodialysis (2) Complete heart block: Code(s): I44.2 - Atrioventricular block, complete Status: Acute Assessment and Plan: Complete heart block at this time with hypotension Patient going to cardiac catheterization lab for at temporary pacemaker placement Hold amiodarone (3) Shock: Code(s): R57.9 - Shock, unspecified Status: Acute Assessment and Plan: Patient had borderline blood pressure during rapid response. Once intubated he became hypotensive. No good IV access. Central venous catheter was placed emergently. Patient started on Levophed. (4) Sepsis: Code(s): A41.9 - Sepsis, unspecified organism Status: Acute Assessment and Plan: Patient presented with normal UA elevated WBC infiltrates. His procalcitonin level was low but lactic level is high could be cardiogenic. Blood cultures have been sent and are pending Continue vancomycin and cefepime CT chest ordered to further evaluate (5) Acute kidney injury superimposed on chronic kidney disease: Code(s): N17.9 - Acute kidney failure, unspecified; N18.9 - Chronic kidney disease, unspecified Status: Acute Assessment and Plan: Patient has chronic kidney disease and now presented with acute kidney injury. Creatinine now 3.1 Patient was given diuretics last night and this morning with very poor response Nephrology following Renal ultrasound negative Anticipate he will need MANAGER CRITICAL CARE for fluid removal (6) Acute UTI: Code(s): N39.0 - Urinary tract infection, site not specified Status: Acute Assessment and Plan: Antibiotics cultures (7) Pneumonia: Code(s): J18.9 - Pneumonia, unspecified organism Status: Acute (8) Atrial fibrillation with RVR: Code(s): I48.91 - Unspecified atrial fibrillation Status: Acute Assessment and Plan: Patient presented with AFib with RVR and was cardioverted. Started on p.o. amiodarone Now in complete heart block and going for transvenous pacemaker Anticoagulated with Lovenox which will be held as patient is in renal failure (9) History of intracranial hemorrhage: Code(s): Z86.79 - Personal history of other diseases of the circulatory system Status: Acute Assessment and Plan: Head CT ordered and pending (10) Diabetes type 2, controlled: Qualifiers: Diabetes mellitus ferry terminal supervisor insulin use: without ferry terminal supervisor use Diabetes mellitus complication status: with unspecified complications Qualified Code(s): E11.8 - Type 2 diabetes mellitus with unspecified complications Code(s): E11.9 - Type 2 diabetes mellitus without complications Status: Acute Assessment and Plan: Sliding scale insulin Plan DVT prophylaxis -currently on therapeutic Lovenox will be held and transition to heparin infusion Stress ulcer prophylaxis -Protonix Nutrition -will start Tube Feeds once patient is stabilized Code Status - Full Code which was confirmed by Dr. Naylor after discussion with patient's brother by phone Case discussed with Cardiology Dr. Naylor Prognosis guarded Total Critical Care Time - 90 minutes except separately billed procedures. Patient was ev
--- NOTE | 2023-12-31 12:50 | WPDMODSED ---
Moderate Sedation Note-Pt Data Patient Data Diagnosis: Complete heart block Present Complaint: Complete heart block Procedure to be performed/Plan: Placement of temporary transvenous pacer Allergies Allergy/AdvReac Type Severity Reaction Status Date / Time No Known Allergies Allergy Verified 12/05/23 08:51 Home Medications Medication Instructions Recorded Confirmed Type atorvastatin 40 mg tablet 40 mg PO DAILY #90 ea 11/25/23 12/29/23 Rx lisinopril 10 mg tablet 10 mg PO DAILY #3 tabs 11/25/23 12/29/23 Rx metoprolol succinate 50 mg 50 mg PO DAILY #30 tabs 11/25/23 12/29/23 Rx tablet,extended release 24 hr pantoprazole 40 mg tablet,delayed 40 mg PO QAM #30 tabs 11/25/23 12/29/23 Rx release tamsulosin 0.4 mg capsule 0.4 mg PO QAM #30 caps 11/25/23 12/29/23 Rx ascorbic acid (vitamin C) 1,000 mg 1 g PO DAILY 12/05/23 12/29/23 History capsule multivitamin 1 tablet PO DAILY 12/05/23 12/29/23 History melatonin 3 mg tablet 3 mg PO HS 12/22/23 12/29/23 History polyethylene glycol 3350 17 gram 17 g PO PRN PRN Constipation 12/22/23 12/29/23 History oral powder packet (Miralax) bisacodyl 5 mg tablet 8.5 - 50 mg PO BID PRN Incontinence 12/29/23 12/29/23 History finasteride 5 mg tablet 5 mg PO DAILY 12/29/23 12/29/23 History Current Medications: Active Medications Acetaminophen (Acetaminophen 325 Mg Tablet) 650 mg PO Q4H PRN PRN Reason: Mild Pain (1-3) or Fever Last Admin: 12/29/23 14:45 Dose: 650 mg Amiodarone HCl (Amiodarone Hcl 200 Mg Tablet) 400 mg PO Q12HR [facility] Last Admin: 12/31/23 08:41 Dose: 400 mg Ascorbic Acid (Ascorbic Acid 500 Mg Tablet) 1,000 mg PO 0800 [facility] Last Admin: 12/31/23 08:45 Dose: 1,000 mg Aspirin (Aspirin 81 Mg Enteric Tablet) 81 mg PO QAM [facility] Last Admin: 12/31/23 08:41 Dose: 81 mg Atorvastatin Calcium (Atorvastatin 40 Mg Tablet) 40 mg PO 2000 [facility] Last Admin: 12/30/23 22:36 Dose: 40 mg Dextrose (Dextrose 50% 25 Gm/50 Ml Syringe) 12.5 gm IV PUSH PRN PRN; Protocol PRN Reason: Hypoglycemia Finasteride (Finasteride 5 Mg Tablet) 5 mg PO DAILY@0800 [facility] Last Admin: 12/31/23 08:42 Dose: 5 mg Glucagon (Glucagon For Inj 1 Mg Vial) 1 mg IM PRN PRN; Protocol PRN Reason: Hypoglycemia Glucose (Glucose Oral Gel 15 Gm Of Glucse In 37.5 Gm Tube) 15 gm PO PRN PRN; Protocol PRN Reason: Hypoglycemia Dextrose (Dextrose 5% 1,000 Ml) 1,000 mls @ 100 mls/hr IVPB PRN PRN; Protocol PRN Reason: Hypoglycemia Norepinephrine Bitartrate (Levophed 8 Mg/D5w 250 Ml) 8 mg in 250 mls @ 9.375 mls/hr IV CONT .Q24H [facility]; Protocol Last Admin: 12/31/23 11:58 Dose: 5 mcg/min, 9.38 mls/hr Fentanyl Citrate (Fentanyl 2,500 Mcg/Ns 250 Ml) 2,500 mcg in 250 mls @ 2.5 mls/hr IV CONT .Q72H [facility]; Protocol Insulin Aspart (Insulin Aspart (*Bkc) 100 Units/Ml) 3 - 6 units SUB-Q Q4H [facility]; Protocol Insulin Glargine (Insulin Glargine (*Bkc) 100 Units/Ml) 16 units 0.2 units/kg (16 units) SUB-Q HS [facility] Last Admin: 12/30/23 22:37 Dose: 16 units Lisinopril (Lisinopril 10 Mg Tablet) 10 mg PO 0800 [facility] Last Admin: 12/31/23 09:05 Dose: Not Given Midazolam HCl (Midazolam Hcl (*Crx) 2 Mg/2 Ml Vial) 2 mg IV PUSH Q2H PRN PRN Reason: Sedation Multi-Ingred Cream/Lotion/Oil/Oint (Mineral Oil/White Petrolatum Ointment) 1 applic EACH EYE Q12HR [facility] Multivitamins Therapeutic (Multivitamins Therapeutic Tab (*Bkc)) 1 tablet PO 0800 [facility] Last Admin: 12/31/23 08:45 Dose: 1 tablet Nitroglycerin (Nitroglycerin Sl 0.4 Mg Tablet) 0.4 mg SUBLINGUAL Q5MIN PRN PRN Reason: Chest Pain Pantoprazole Sodium (Pantoprazole 40 Mg Tablet) 40 mg PO DAILY@0800 [facility] Last Admin: 12/31/23 08:43 Dose: 40 mg Polyethylene Glycol (Polyethylene Glycol 3350 17 Gm Powd.Pack) 17 gm PO QAM [facility] Last Admin: 12/31/23 08:40 Dose: 17 gm Senna (Sennosides 8.6 Mg Tablet) 8.6 mg PO BID [facility] Last Admin: 12/31/23 08:41 Dose: 8.6 mg Tamsulosin HCl (Tamsulosin Hcl 0.4 Mg Capsule) 0.4 mg PO QHS [facility] Last Admin: 12/30/23 22:36 Dose: 0.4 mg
--- NOTE | 2023-12-31 13:36 | ECG_ITS ---
Measurements Intervals [place] Rate: 80 P: 44 TN: 137 QRS: -56 QRSD: 95 T: 88 QT: 429 QTc: 464 Interpretive Statements VENTRICULAR PACED RHYTHM SEE SCANNED COPY FOR SIGNATURE MTDD
--- NOTE | 2023-12-31 13:42 | WPDCARDPROC ---
Cardiac Cath Procedure Note Date of procedure:: 12/31/23 Performing physician:: CATHETERIZATION LABORATORY REPORT Procedure Date: 12/31/2023 Healthcare Educator: Son Naylor M.D., [facility]? Referring Physician: Son Naylor M.D. Anesthesia: Versed was ordered and given in my presence at 13:10, procedure ended at 13:39. Supervision of nurse monitored moderate sedation with Versed and Fentanyl was provided for 29 minutes. Total of Versed 1mg was administered by the Secondary School Teacher RN Denise Gibson Pre-op Diagnosis: Complete heart block Post-op Diagnosis: Successful placement of temporary transvenous pacer Procedure(s): 1. Moderate sedation 2. Ultrasound-guided access of the right femoral vein 3. Insertion of temporary transvenous pacer Access Site: Right femoral vein Brief History and Clinical Indications: Patient is an 83 year old male who is referred for urgent transvenous pacer for complete heart block. All risks, benefits and alternatives to transvenous pacer was discussed at length with the patient's brother. Risk of complications including but not limited to bleeding, infection, arrhythmia, blood loss, groin hematoma, emergency surgery, and even were discussed with the patient's brother and all questions were answered. The patient's brother understood and wished to proceed. Time out called, patient name, date of , medical record number, allergies, procedure performed, identify Healthcare Educator, patient and staff member concurred with accurate data, procedure carried on. Description of Procedure: Informed consent signed and placed in the chart. Patient transferred to clinical lab specialist room. Prepped and draped in usual sterile fashion. 2% lidocaine injected subcutaneously in right groin area. Right femoral vein was accessed using micropuncture technique under ultrasound guidance. 6-FR sheath placed. 5F temporary transvenous pacer advanced into RV, appropriate capture confirmed. Sheath sutured in place. Post Operative Condition: Stable No significant blood loss Disposition: ICU Plan: Obtain daily CXRs to confirm position of transvenous pacer. ? Son Naylor M.D. Interventional Cardiology
[2023-12-31 14:01] LABS: Arterial Blood Gas PEEP 10 cmH2O; Arterial Blood Gas Tidal Volume 450 ml; Arterial Blood Gas Vent Mode CMV; Arterial Blood Gas Ventilator rate 25 /MIN; Base Excess ABG -8.4 mEq/l (+/-2.0); Carboxyhemoglobin 0.3 % THb (0-2.0); Device VENTILATOR; Fractional Inspired Oxygen 100 %; HCO3 ABG 15.5 mEq/l (22.0-26.0); Methemoglobin ABG 0.2 %THb (0-1.5); Oxygen Content ABG 15.8 %vol (16.0-22.0); Oxygen Saturation ABG 99.5 % (95.0-100.0); PCO2 ABG 27.2 mmHg (35.0-45.0); PO2 ABG 231.8 mmHg (80.0-100.0); PO2 FiO2 Ratio Arterial Blood 2.32 %; Reduced Hemoglobin 1.5 %THb (0-5.0); Total Hemoglobin 11.1 g/dL (12.0-18.0); pH ABG 7.374 (7.350-7.450)
[2023-12-31] MEDS: CEFEPIME 0.5 GM in DEXTROSE 5% IN WATER 50 ML IVPB ×2 (14:39→21:10)
[2023-12-31] MEDS: VANCOMYCIN 1,250 MG/NS 250 ML 1,250 MG/250 ML BAG 166.67 MG IVPB (14:40)
--- NOTE | 2023-12-31 14:43 | PCPTNOTE ---
Pt. has transferred to ICU and intubated at this time. Re-order physical therapy services when pt. medically appropriate to participate.
[2023-12-31] MEDS: FENTANYL 2,500MCG/NS250ML(*CRX 2,500 MCG/250 ML BAG IV CONT (14:49)
[2023-12-31 15:01] LABS: Anion Gap 11 mmol/L (4-12); Blood Urea Nitrogen 53 mg/dL (9-20); Calcium 8.6 mg/dL (8.4-10.2); Carbon Dioxide 17 mmol/L (22-30); Chloride 111 mmol/L (98-107); Estimated CRCL calculation 18 ml/min; Estimated Glomerular Filt Rate 17; Glucose 210 mg/dL (65-110); Magnesium 2.3 mg/dL (1.6-2.3); Potassium 5.1 mmol/L (3.4-5.0); Sodium 139 mmol/L (137-145)
[2023-12-31] MEDS: MIDAZOLAM HCL (*CRX) 2 MG/2 ML VIAL IV PUSH (15:42)
[2023-12-31 15:53] LABS: Glucose Point of Care 195 mg/dl (65-105)
[2023-12-31] MEDS: SODIUM BICARBONATE 8.4% 50 MEQ/50 ML SYRINGE IV PUSH (17:23)
[2023-12-31] MEDS: SODIUM ZIRCONIUM CYCLOSILICATE 10 GM POWD.PACK FEED TUBE (17:24)
--- NOTE | 2023-12-31 17:31 | PCRCNOTE ---
I could not perform an arterial blood gas due to the emergent temporary pacemaker placed in the Water And Fire Technician. Heart rate was in the 30s-40s prior to the pacemaker.
--- NOTE | 2023-12-31 17:55 | PM.IMPN ---
Progress Note: A&P Assessment and Plan (1) Altered mental status: Code(s): R41.82 - Altered mental status, unspecified Status: Acute (2) REBECA (acute kidney injury): Code(s): N17.9 - Acute kidney failure, unspecified Status: Acute (3) Acute respiratory failure: Code(s): J96.00 - Acute respiratory failure, unspecified whether with hypoxia or hypercapnia Status: Acute (4) Complete heart block: Code(s): I44.2 - Atrioventricular block, complete Status: Acute (5) Shock: Code(s): R57.9 - Shock, unspecified Status: Acute (6) Pneumonia: Code(s): J18.9 - Pneumonia, unspecified organism Status: Acute (7) Sepsis: Code(s): A41.9 - Sepsis, unspecified organism Status: Acute Plan # complete heart block -patient had tachyarrhythmia which was thought to be afib. there was also concern for heart block over the weekend. the rhythm was not completely clear. After holding the metoprolol heart rate appeared to be stable on the 60s however today on 12/31/2023 heart rate decreased to 30s and heart block appear to be more prominent -lovenox for AC -patient now developing what appears to be complete heart block, temporary pacer placed, plan for pacemaker implantation Saturday -holding amiodarone # fluid overload # septic shock -patient unable to urinate has worsening edema -unable to lie flat -with worsening respiratory status despite BiPAP patient was subsequently intubated by automatic mold sander -patient to follow-up shock from sedation, weaning Levophed -mechanical ventilation ACVC -critical care team consulted -sedation: Fentanyl -ABx: cefepime #Oliguria -decreased urine output, low BP, likely developed ATN -will continue to monitor. patient is tolerating PO intake, if labs worsen by tomorrow will hydrate -nephrology consulted -for dialysis catheter placed in case patient needs dialysis -now intubated with positive pressure -diuresis hold with patient being on Levophed #Chronic conditions - hold PO meds -HLD: aspirin, statin -BPH: flomax, proscar -constipation: senna, miralax -GERD: protonix -essential HTN: lisinopril -type 2 DMII: lantus, sliding scale insulin, hypoglycemia protocol, accuchecks ACHS Diet:?NPO, intubated DVT ppx:??lovenox Code status:?Full code Disposition:?in >3 days, moved to ICU for IMV Subjective Date/time seen: 12/31/23 17:55 Interval history: Patient seen examined. Overnight patient had worsening dyspnea placed on BiPAP and was given a dose of Bumex. Despite Bumex he was not making much urine considering his renal failure. Despite being tachypneic he was alert oriented and answering questions appropriately. Then around mid day he developed complete heart block with heart rate dropped to 30s. He was emergently intubated and temporary pacemaker was placed. He has been moved to the ICU for further management and critical care. This morning patient felt anxious and shortness of breath. He denied fever, chills, nausea, vomiting. Review of Systems Review of Systems: 10 point ROS complete, negative other than what is specified in HPI. Exam Narrative: - GENERAL: Frail cachectic male in respiratory distress - EYES: EOMI. Anicteric. - HENT: Moist mucous membranes. - LUNGS: Diminished lung sounds, tachypneic, poor aeration - CARDIOVASCULAR: bradycardic - ABDOMEN: Soft, non-tender and non-distended. - EXTREMITIES: Peripheral pulses 2+. Non-tender. - NEUROLOGIC: No focal neurological deficits. - PSYCHIATRIC: Awake, Alert and oriented. anxious - SKIN: No rashes or lesions. Warm. Objective Data Vital Signs Vital Signs: Vital Signs - 24 hr 12/30/23 18:00 12/30/23 20:33 12/30/23 22:35 Temperature 36.3 C L Pulse Rate 72 71 72 Respiratory Rate 23 H Blood Pressure 121/61 Pulse Oximetry 95 Oxygen Delivery Oxygen Flow Rate Fraction of Inspired Oxygen 12/30/23 20:00 12/30/23 23:45 12/30/23
--- NOTE | 2023-12-31 17:58 | PC.NURSE ---
This patient, Piyush Ayon, was received from [facility] on 12/31/23 at 1140. Patient minimally responsive on BiPAP and to be emergently intubated per Dr. Kong prior to being taken to cardiac cath tech for pacer placement. In complete heart block.
[2023-12-31 19:59] LABS: Glucose Point of Care 196 mg/dl (65-105)
[2023-12-31] MEDS: MINERAL OIL/WHITE PETROLATUM OINTMENT 1 APPLIC EACH EYE (21:10)
[2023-12-31] MEDS: TAMSULOSIN HCL 0.4 MG CAPSULE PO (21:10)
[2023-12-31] MEDS: ATORVASTATIN 40 MG TABLET PO (21:10)
[2023-12-31] MEDS: HEPARIN SOD/D5W 100 UNITS/ML 25,000 UNITS/250 ML BAG 15 UNITS IV CONT (21:11)
[2023-12-31 21:31] LABS: Basophils Percent Auto 0.1 % (0.2-1.2); Hematocrit 29.4 % (42.0-52.0); Hemoglobin 9.5 g/dL (14.0-18.0); Immature Granulocyte Absolute 0.12 K/mm3 (0.00-0.031); Immature Granulocyte Percent A 0.8 % (0-0.5); Lymphocytes Absolute Auto 0.99 K/mm3 (0.9-3.2); Lymphocytes Percent Auto 6.6 % (18.3-44.2); Mean Corpuscular HGB Conc 32.3 g/dl (32-36); Mean Corpuscular Hemoglobin 30.1 pg (26-34); Mean Platelet Volume 10.4 fl (7.4-10.4); Monocytes Absolute Auto 0.9 K/mm3 (0.1-0.6); Neutrophils Absolute Auto 13.1 K/mm3 (1.3-6.7); Neutrophils Percent Auto 86.5 % (45.5-73.1); Platelet Count Result 272 k/mm3 (150-375); Red Blood Count 3.16 M/mm3 (4.6-6.20); Red Cell Distribution Width 15.1 % (11.5-14.5); White Blood Count 15.1 K/mm3 (4.5-10.0)
[2023-12-31 21:44] LABS: INR 1.5; Prothrombin Time 19.3 Seconds (11.1-14.7)
[2023-12-31 21:45] LABS: Partial Thromboplastin Time 30.5 Seconds (22.3-36.8)
[2023-12-31] MEDS: HEPARIN SODIUM 5,000 UNITS/ML VIAL 6500 UNITS IV PUSH (22:10)
[2024-01-01] VITALS (51 sets, daily range): BP systolic 88–114; BP diastolic 47–61; PULSE 80–810; RESP 17–85; TEMP 36.3–37; O2SAT 97–100; BMI 24.7
[2024-01-01 00:16] LABS: Glucose Point of Care 182 mg/dl (65-105)
[2024-01-01 04:42] LABS: Basophils Percent Auto 0.1 % (0.2-1.2); Eosinophils Percent Auto 0.1 % (0-4.4); Hematocrit 31.5 % (42.0-52.0); Immature Granulocyte Percent A 1.2 % (0-0.5); Lymphocytes Absolute Auto 1.44 K/mm3 (0.9-3.2); Lymphocytes Percent Auto 8.3 % (18.3-44.2); Mean Corpuscular HGB Conc 31.7 g/dl (32-36); Mean Corpuscular Volume 94.6 fl (80-100); Mean Platelet Volume 10.7 fl (7.4-10.4); Monocytes Absolute Auto 1.1 K/mm3 (0.1-0.6); Monocytes Percent Auto 6.6 % (2.6-8.5); Neutrophils Absolute Auto 14.5 K/mm3 (1.3-6.7); Neutrophils Percent Auto 83.7 % (45.5-73.1); Nucleated Red Blood Cells Perc 0.1 % (0.0-0.2); Platelet Count Result 293 k/mm3 (150-375); Red Blood Count 3.33 M/mm3 (4.6-6.20); Red Cell Distribution Width 15.2 % (11.5-14.5); White Blood Count 17.3 K/mm3 (4.5-10.0)
[2024-01-01 05:01] LABS: Eosinophil Urine None Seen % (None Seen); Urine Eos QC 2nd Tech Confirmed
[2024-01-01 05:04] LABS: Creatinine Urine 274.9 mg/dL; Total Protein Urine Random 30 mg/dL; Ur Ttl Prot Creatinine Ratio 0.11 mg/mg (0-0.20); Urea Random Urine 424 MG/DL
[2024-01-01 05:09] LABS: Sodium Urine Random 8 meq/L
[2024-01-01 05:10] LABS: Alanine Aminotransferase 454 U/L (6-50); Albumin Level 2.8 g/dL (3.5-5.1); Alkaline Phosphatase 104 U/L (38-126); Anion Gap 7 mmol/L (4-12); Aspartate Amino Transferase 287 U/L (17-59); Bilirubin,Total 0.4 mg/dL (0.2-1.3); Blood Urea Nitrogen 60 mg/dL (9-20); Calcium 7.8 mg/dL (8.4-10.2); Carbon Dioxide 21 mmol/L (22-30); Chloride 109 mmol/L (98-107); Creatine Kinase 270 U/L (55-170); Estimated CRCL calculation 16 ml/min; Estimated Glomerular Filt Rate 16; Glucose 197 mg/dL (65-110); Magnesium 2.3 mg/dL (1.6-2.3); Phosphorus 5.8 mg/dL (2.5-4.5); Potassium 5.2 mmol/L (3.4-5.0); Sodium 137 mmol/L (137-145)
[2024-01-01 05:48] LABS: Alveolar/Arterial O2 Gradient 176.9 mmHg; Base Excess ABG -6.6 mEq/l (+/-2.0); Carboxyhemoglobin 0.2 % THb (0-2.0); Fractional Inspired Oxygen 50 %; HCO3 ABG 17.9 mEq/l (22.0-26.0); Methemoglobin ABG 0.3 %THb (0-1.5); Oxygen Content ABG 15.5 %vol (16.0-22.0); Oxygen Saturation ABG 98.8 % (95.0-100.0); Oxyhemoglobin 97.3 % THb (90.0-100.0); PCO2 ABG 32.5 mmHg (35.0-45.0); PO2 FiO2 Ratio Arterial Blood 2.86 %; Reduced Hemoglobin 2.2 %THb (0-5.0); Total Hemoglobin 11.1 g/dL (12.0-18.0); pH ABG 7.359 (7.350-7.450)
[2024-01-01 05:51] LABS: Arterial Blood Gas PEEP 8 cmH2O; Arterial Blood Gas Vent Mode CMV; Arterial Blood Gas Ventilator rate 25 /MIN; Device VENTILATOR; Modified Allen's Test Pass; Site Drawn RIGHT RADIAL
[2024-01-01 05:52] LABS: Arterial Blood Gas Tidal Volume 450 ml
[2024-01-01 06:02] LABS: Hepatitis B Surface Antigen Negative (Negative)
[2024-01-01 06:20] LABS: Hepatitis B Surface Anti Res Negative
[2024-01-01 07:29] LABS: Partial Thromboplastin Time 162.4 Seconds (22.3-36.8)
[2024-01-01 07:41] LABS: Glucose Point of Care 188 mg/dl (65-105)
[2024-01-01] MEDS: SODIUM BICARBONATE TAB 650 MG TABLET FEED TUBE ×2 (08:02→18:54)
[2024-01-01] MEDS: ASPIRIN 81 MG ENTERIC TABLET PO (08:02)
[2024-01-01] MEDS: SENNOSIDES 8.6 MG TABLET PO ×2 (08:02→18:54)
[2024-01-01] MEDS: PANTOPRAZOLE SODIUM IV 40 MG VIAL IV PUSH (08:02)
[2024-01-01] MEDS: polyethylene glycoL 3350 17 GM POWD.PACK PO (08:02)
[2024-01-01] MEDS: MINERAL OIL/WHITE PETROLATUM OINTMENT 1 APPLIC EACH EYE ×2 (08:03→20:50)
[2024-01-01] MEDS: CEFEPIME 0.5 GM in DEXTROSE 5% IN WATER 50 ML IVPB (08:04)
[2024-01-01] MEDS: ASCORBIC ACID 500 MG TABLET 1000 MG PO (08:13)
[2024-01-01] MEDS: MULTIVITAMINS THERAPEUTIC TAB (*BKC) 1 TABLET PO (08:13)
--- NOTE | 2024-01-01 08:52 | WPDINTPN ---
Progress Note: A&P Assessment and Plan (1) Acute respiratory failure: Code(s): J96.00 - Acute respiratory failure, unspecified whether with hypoxia or hypercapnia Status: Acute Assessment and Plan: Acute Respiratory failure secondary to encephalopathy, pulmonary edema, possible pneumonia Patient on BiPAP with poor mental status and hemodynamically unstable. Needs transvenous pacemaker placement and will need to lay flat for the procedure. Patient intubated emergently after transferring to ICU. CT chest IMPRESSION: 1. Moderate-sized pleural effusions. 2. Patchy groundglass opacities in the upper lobes, consistent with mild pulmonary edema versus inflammation/infection. ABG reviewed and decrease tidal volume 420. Peep is at 8 FiO2 is at 40% May need thoracentesis Will discuss at Nephrology regarding initiate HIGH SCHOOL MATH TUTOR to remove fluid (2) Complete heart block: Code(s): I44.2 - Atrioventricular block, complete Status: Acute Assessment and Plan: Complete heart block at this time with hypotension Patient going to cardiac catheterization lab for at temporary pacemaker placement Hold amiodarone On Decreasing pacemaker rate patient does not have any intrinsic rhythm (3) Shock: Code(s): R57.9 - Shock, unspecified Status: Acute Assessment and Plan: Patient had borderline blood pressure during rapid response. Once intubated he became hypotensive. No good IV access. Central venous catheter was placed emergently. Patient started on Levophed. Continue Levophed titration Hold further IV fluids as patient is overall volume overloaded (4) Sepsis: Code(s): A41.9 - Sepsis, unspecified organism Status: Acute Assessment and Plan: Patient presented with abnormal UA, elevated WBC infiltrates. His procalcitonin level was low but lactic level is high could be cardiogenic. Blood cultures have been sent and are pending Continue vancomycin and cefepime CT chest ordered to further evaluate (5) Acute kidney injury superimposed on chronic kidney disease: Code(s): N17.9 - Acute kidney failure, unspecified; N18.9 - Chronic kidney disease, unspecified Status: Acute Assessment and Plan: Patient has chronic kidney disease and now presented with acute kidney injury. Creatinine now 3.1 Patient was given diuretics 12/29 and 12/30 with very poor response Nephrology following Renal ultrasound negative Continues to oliguric. Creatinine further worse at 3.7. K 5.2 Will give Lokelma per tube Requested Nephrology to initiate hemodialysis for fluid overload (6) Acute UTI: Code(s): N39.0 - Urinary tract infection, site not specified Status: Acute Assessment and Plan: Antibiotics cultures (7) Pneumonia: Code(s): J18.9 - Pneumonia, unspecified organism Status: Acute Assessment and Plan: See above (8) Atrial fibrillation with RVR: Code(s): I48.91 - Unspecified atrial fibrillation Status: Acute Assessment and Plan: Patient presented with AFib with RVR and was cardioverted. Started on p.o. amiodarone Now in complete heart block and status post transvenous pacemaker Heparin infusion (9) History of intracranial hemorrhage: Code(s): Z86.79 - Personal history of other diseases of the circulatory system Status: Acute Assessment and Plan: Head CT shows or large MCA infarct Lovenox was started after cardioverted and minimize risk of thrombus formation and CVA. I have switched it to heparin (10) Diabetes type 2, controlled: Qualifiers: Diabetes mellitus emt intermediate insulin use: without long-term use Diabetes mellitus complication status: with unspecified complications Qualified Code(s): E11.8 - Type 2 diabetes mellitus with unspecified complications Code(s): E11.9 - Type 2 diabetes mellitus without complications Status: Acute Assessment and Plan: Sliding scale insulin Plan DVT p
[2024-01-01] MEDS: SODIUM ZIRCONIUM CYCLOSILICATE 10 GM POWD.PACK FEED TUBE ×2 (10:16→19:39)
--- NOTE | 2024-01-01 10:20 | PM.PNCARD ---
Progress Note: A&P Assessment and Plan (1) Complete heart block: Code(s): I44.2 - Atrioventricular block, complete Status: Acute Assessment and Plan: On 12/30, patient went into complete heart block. Underwent placement of emergent temporary transvenous pacer in the lab director. Amiodarone stopped. Continue to avoid all AV maryjo blocking agents. Will need permanent pacemaker, will tentatively plan for Saturday with Dr. Morillo. Continue temporary transvenous pacer until then. Obtain daily CXRs to confirm position of transvenous pacer. (2) Atrial fibrillation with RVR: Code(s): I48.91 - Unspecified atrial fibrillation Status: Acute Assessment and Plan: New diagnosis of atrial fibrillation last admission. Echocardiogram with preserved LVEF. Presented to the ER on 12/27 in atrial fibrillation with RVR. He was cardioverted in the ED for RVR with hypotension with SBP 75/58mmHg. Patient was started on therapeutic Lovenox after this, however, currently on a Heparin drip.? Patient remains in elevated risk for hemorrhagic and embolic stroke complications.? Patient has multiple comorbidities as a high risk for serious life-threatening complications in this regard. (3) Acute respiratory failure: Code(s): J96.00 - Acute respiratory failure, unspecified whether with hypoxia or hypercapnia Status: Acute Assessment and Plan: Remains intubated. (4) Acute kidney injury superimposed on chronic kidney disease: Code(s): N17.9 - Acute kidney failure, unspecified; N18.9 - Chronic kidney disease, unspecified Status: Acute Assessment and Plan: SCr is worsening. Poor urine output. I think he may need dialysis. Nephrology consulted. (5) Shock: Code(s): R57.9 - Shock, unspecified Status: Acute Assessment and Plan: Remains on Levophed. Plan Recommendations and plan discussed with [employer] Safety Engineer. Subjective Date/time seen: 01/01/24 10:20 Interval history: Reason for visit: Atrial fibrillation with RVR HPI: This is an 83-year-old man who was a not known to me prior to this consultation he was seen by my partners recently with intermittent/paroxysmal atrial fibrillation.? The patient was admitted here yesterday from the emergency room after he was sent by his residential because of recurrent AFib with RVR.? The patient's onset of atrial fibrillation is not known to me but he was seen here recently earlier in the month by my partners with the same arrhythmia.? He was treated with metoprolol and was not felt to be a candidate for anticoagulation because of history of frequent falling with significant trauma as well as a history of intracranial hemorrhage in the past.? He was discharged back to his [facility] facility on a modest dose of metoprolol.? His noninvasive evaluation by ECG and ECHO demonstrated evidence of what appears to be a previous anteroapical infarction of unknown duration.? The patient after being seen in the emergency room was treated with some intravenous diltiazem which has been stopped.? He was taken off of metoprolol.? His ECG upon arrival showed atrial fibrillation with a rapid ventricular response subsequent EKG demonstrated evidence of what appears to be an ectopic atrial rhythm with variable conduction.? I am not able to see the electrocardiograms directly since the ECG system is not functional over the weekend.? The telemetry strips however appear to show an ectopic atrial tachycardia with variable conduction.? In this setting I am seeing him in consultation.? He is taking no medication for this at all since his beta-giovanni has been stopped he is feeling comfortable at this time and denies any other complaints.? There were some comments in the record as to his ECG demonstrating evidence of high-grade even third-degree AV block.? Most of the strips that I am reviewing appear to show evidence of the atrial tachycardia with block I do not believe we are seeing sin
[2024-01-01 11:39] LABS: Glucose Point of Care 161 mg/dl (65-105)
[2024-01-01] MEDS: ALBUMIN HUMAN 25% 25 GM/100 ML 100 ML IVPB ×2 (12:26→18:53)
[2024-01-01] MEDS: HEPARIN SOD/D5W 100 UNITS/ML 25,000 UNITS/250 ML BAG 16 UNITS IV CONT (12:50)
[2024-01-01] MEDS: CENTRAL LINE FLUSH 10 ML IV PUSH ×2 (13:49→20:51)
[2024-01-01 14:34] LABS: Vancomycin Trough 16.2 ug/mL (10.0-20.0)
--- NOTE | 2024-01-01 15:15 | P.PNNP_ITS ---
Progress Note: A&P Assessment and Plan (1) REBECA (acute kidney injury): Code(s): N17.9 - Acute kidney failure, unspecified Status: Acute Assessment and Plan: * as noted on admission * suspect due to multiple issues: * Afib with RVR * hemodynamic instability on admission/hypotension/shock * infection/early sepsis * YLNDA-I use prior to admission * urinary retention * evaluation to date noted: * renal ultrasound unremarkable * CPK midly elevated but trend down * urine electrolytes prerenal * urine eosinophils negative * no significant proteinuria * given poor UOP and rising K+; initiate renal replacement/dialysis today * follow trend of repeat labs and UOP for potential renal recovery (2) Stage 3b chronic kidney disease (CKD): Code(s): N18.32 - Chronic kidney disease, stage 3b Status: Chronic Assessment and Plan: * baseline creatinine runs around 1.4 - 1.8mg/dl * presumable secondary to hypertension, diabetes, vascular disease, urinary retention/chronic pulido catheter, and age-related change (3) Complete heart block: Code(s): I44.2 - Atrioventricular block, complete Status: Acute Assessment and Plan: * as noted by telemetry on 12/30 * s/p temporary pacemaker placement * amiodarone on hold * likely to need permanent pacemaker * Cardiology following (4) Acute respiratory failure: Code(s): J96.00 - Acute respiratory failure, unspecified whether with hypoxia or hypercapnia Status: Acute Assessment and Plan: * due to several issues: * AMS/encephalopathy * pulmonary edema * possible pneumonia * on mechanical ventilation * CT of chest noted * attempt fluid removal with dialysis as tolerated by hemodynamics (5) Shock: Code(s): R57.9 - Shock, unspecified Status: Acute Assessment and Plan: * septic versus cardiogenic versus combination of both(?) * abnormal UA * elevated WBC * elevated lactic acid * on vasopressor support * follow culture data * on antibiotics (6) Atrial fibrillation with RVR: Code(s): I48.91 - Unspecified atrial fibrillation Status: Acute Assessment and Plan: * new diagnosis on last hospitalization * Echo with preserved EF * s/p cardioversion due to hemodynamic instability (on 12/27) * on heparin gtt * Cardiology following (7) Diabetes type 2, controlled: Qualifiers: Diabetes mellitus watcher automat long goods insulin use: without watcher automat long goods use Diabetes mellitus complication status: with unspecified complications Qualified Code(s): E11.8 - Type 2 diabetes mellitus with unspecified complications Code(s): E11.9 - Type 2 diabetes mellitus without complications Status: Acute Assessment and Plan: * follow accu-cheks * glycemic control per intensivisit/hospitalists . Will continue to follow. Subjective Date/time seen: 01/01/24 15:15 Interval history: Follow-up for acute kidney injury/acute renal failure on chronic kidney disease. Events noted yesterday after I saw him -- evidence of complete heart block noted in conjunction with worsening respiratory status and inability to protect airway due to being obtunded; transferred to ICu and intubated and placed on mechanical ventilation; taken to laboratory animal care veterinarian for temporary venous pacemaker placement; initiated on vasopressor therapy due to hypotension after central line placem ent; poor urine output overnight in association with worsening renal dysfunction as well; toleratin
--- NOTE | 2024-01-01 15:15 | PM.PNNEP ---
Progress Note: A&P Assessment and Plan (1) REBECA (acute kidney injury): Code(s): N17.9 - Acute kidney failure, unspecified Status: Acute Assessment and Plan: as noted on admission suspect due to multiple issues: Afib with RVR hemodynamic instability on admission/hypotension/shock infection/early sepsis LYNDA-I use prior to admission urinary retention evaluation to date noted: renal ultrasound unremarkable CPK midly elevated but trend down urine electrolytes prerenal urine eosinophils negative no significant proteinuria given poor UOP and rising K+; initiate renal replacement/dialysis today follow trend of repeat labs and UOP for potential renal recovery (2) Stage 3b chronic kidney disease (CKD): Code(s): N18.32 - Chronic kidney disease, stage 3b Status: Chronic Assessment and Plan: baseline creatinine runs around 1.4 - 1.8mg/dl presumable secondary to hypertension, diabetes, vascular disease, urinary retention/chronic pulido catheter, and age-related change (3) Complete heart block: Code(s): I44.2 - Atrioventricular block, complete Status: Acute Assessment and Plan: as noted by telemetry on 12/30 s/p temporary pacemaker placement amiodarone on hold likely to need permanent pacemaker Cardiology following (4) Acute respiratory failure: Code(s): J96.00 - Acute respiratory failure, unspecified whether with hypoxia or hypercapnia Status: Acute Assessment and Plan: due to several issues: AMS/encephalopathy pulmonary edema possible pneumonia on mechanical ventilation CT of chest noted attempt fluid removal with dialysis as tolerated by hemodynamics (5) Shock: Code(s): R57.9 - Shock, unspecified Status: Acute Assessment and Plan: septic versus cardiogenic versus combination of both(?) abnormal UA elevated WBC elevated lactic acid on vasopressor support follow culture data on antibiotics (6) Atrial fibrillation with RVR: Code(s): I48.91 - Unspecified atrial fibrillation Status: Acute Assessment and Plan: new diagnosis on last hospitalization Echo with preserved EF s/p cardioversion due to hemodynamic instability (on 12/27) on heparin gtt Cardiology following (7) Diabetes type 2, controlled: Qualifiers: Diabetes mellitus intermediate manager insulin use: without usp use Diabetes mellitus complication status: with unspecified complications Qualified Code(s): E11.8 - Type 2 diabetes mellitus with unspecified complications Code(s): E11.9 - Type 2 diabetes mellitus without complications Status: Acute Assessment and Plan: follow accu-cheks glycemic control per intensivisit/hospitalists . Will continue to follow. Subjective Date/time seen: 01/01/24 15:15 Interval history: Follow-up for acute kidney injury/acute renal failure on chronic kidney disease. Events noted yesterday after I saw him -- evidence of complete heart block noted in conjunction with worsening respiratory status and inability to protect airway due to being obtunded; transferred to ICu and intubated and placed on mechanical ventilation; taken to culture media laboratory assistant for temporary venous pacemaker placement; initiated on vasopressor therapy due to hypotension after central line placement; poor urine output overnight in association with worsening renal dysfunction as well; tolerating hemodialysis treatment at the time of my visit (seen on HD at 3:05PM). Exam Narrative: General: frail and elderly male intubated/sedated and on mechanical ventilation Heart: normal S1 and S2; no rub Lungs: coarse breath sounds with bibasilar crackles Abdomen: soft, nontender, nondistended, hypoactive bowel sounds Extremities: no cyanosis or clubbing; 1+ edema Skin: cool to touch but dry Objective Data Vital Signs Vital Signs: Vital Signs Temp Pulse Resp
[2024-01-01 16:19] LABS: Glucose Point of Care 186 mg/dl (65-105)
[2024-01-01] MEDS: NOREPINEPHRINE 8 MG/D5W 250 ML 8 MG/250 ML BAG 26.25 MG IV CONT (16:48)
[2024-01-01] MEDS: VANCOMYCIN 750 MG/NS 250 ML 750 MG/250 ML BAG 250 MG IVPB (18:54)
[2024-01-01] MEDS: CEFEPIME 1 GM/NS 50 ML 1 GM/50 ML BAG IVPB (20:50)
[2024-01-01] MEDS: ATORVASTATIN 40 MG TABLET PO (20:50)
[2024-01-01 20:59] LABS: Glucose Point of Care 179 mg/dl (65-105)
[2024-01-01 21:20] LABS: Partial Thromboplastin Time 123.2 Seconds (22.3-36.8)
[2024-01-02] VITALS (42 sets, daily range): BP systolic 73–107; BP diastolic 49–64; PULSE 80; RESP 25–31; TEMP 36.5–37.3; O2SAT 95–100
[2024-01-02] MEDS: ALBUMIN HUMAN 25% 25 GM/100 ML 100 ML IVPB ×2 (00:30→04:42)
[2024-01-02 00:33] LABS: Glucose Point of Care 184 mg/dl (65-105)
--- NOTE | 2024-01-02 01:30 | PC.NURSE ---
Upon giving a bath, patient noted to have possible breakdown on coccyx. Wound picture taken for wound care to evaluate, protective mepelix placed on bottom.
[2024-01-02] MEDS: FENTANYL 2,500MCG/NS250ML(*CRX 2,500 MCG/250 ML BAG 7.5 MCG IV CONT (01:54)
[2024-01-02] MEDS: NOREPINEPHRINE 8 MG/D5W 250 ML 8 MG/250 ML BAG 30 MG IV CONT (01:55)
--- NOTE | 2024-01-02 03:06 | PC.NURSE ---
Updated Dr. Kong regarding persistent hypotension. All current drips updated. Give 1 amp of sodium bicarbonate. Give 500ml of LR. Start Epinephrine drip per protocol if reach max dose of Levophed and patient still is hypotensive.
[2024-01-02] MEDS: LACTATED RINGERS 500 ML IV CONT (03:37)
[2024-01-02] MEDS: SODIUM BICARBONATE 8.4% 50 MEQ/50 ML SYRINGE IV PUSH (03:37)
[2024-01-02 04:04] LABS: Hematocrit 26.6 % (42.0-52.0); Hemoglobin 8.5 g/dL (14.0-18.0); Platelet Count Result 209 k/mm3 (150-375); Red Blood Count 2.83 M/mm3 (4.6-6.20); Red Cell Distribution Width 15.2 % (11.5-14.5); White Blood Count 13.5 K/mm3 (4.5-10.0)
[2024-01-02 04:15] LABS: Alanine Aminotransferase 617 U/L (6-50); Albumin Level 3.5 g/dL (3.5-5.1); Alkaline Phosphatase 123 U/L (38-126); Anion Gap 12 mmol/L (4-12); Aspartate Amino Transferase 496 U/L (17-59); Bilirubin,Total 0.8 mg/dL (0.2-1.3); Blood Urea Nitrogen 44 mg/dL (9-20); Carbon Dioxide 24 mmol/L (22-30); Chloride 104 mmol/L (98-107); Estimated CRCL calculation 18 ml/min; Estimated Glomerular Filt Rate 18; Glucose 225 mg/dL (65-110); Magnesium 2.2 mg/dL (1.6-2.3); Phosphorus 6.4 mg/dL (2.5-4.5); Potassium 4.7 mmol/L (3.4-5.0); Sodium 140 mmol/L (137-145)
[2024-01-02 04:17] LABS: Partial Thromboplastin Time 74.4 Seconds (22.3-36.8)
[2024-01-02] MEDS: INSULIN ASPART (*BKC) 100 UNITS/ML SUB-Q (04:46)
[2024-01-02 04:50] LABS: Vancomycin Random 17.9 ug/mL (10-20)
[2024-01-02 05:06] LABS: Alveolar/Arterial O2 Gradient 55.7 mmHg; Carboxyhemoglobin 0.1 % THb (0-2.0); Fractional Inspired Oxygen 30 %; HCO3 ABG 19.8 mEq/l (22.0-26.0); Methemoglobin ABG 0.3 %THb (0-1.5); Oxygen Content ABG 13.6 %vol (16.0-22.0); Oxygen Saturation ABG 98.1 % (95.0-100.0); Oxyhemoglobin 96.4 % THb (90.0-100.0); PCO2 ABG 35.6 mmHg (35.0-45.0); PO2 ABG 116.4 mmHg (80.0-100.0); PO2 FiO2 Ratio Arterial Blood 3.88 %; Reduced Hemoglobin 3.2 %THb (0-5.0); Total Hemoglobin 9.9 g/dL (12.0-18.0); pH ABG 7.363 (7.350-7.450)
[2024-01-02 05:09] LABS: Device VENTILATOR; Modified Allen's Test Pass; Site Drawn RIGHT RADIAL
[2024-01-02 05:10] LABS: Arterial Blood Gas PEEP 8 cmH2O; Arterial Blood Gas Tidal Volume 420 ml; Arterial Blood Gas Vent Mode CMV; Arterial Blood Gas Ventilator rate 25 /MIN
[2024-01-02] MEDS: CENTRAL LINE FLUSH 10 ML IV PUSH (05:38)
[2024-01-02] MEDS: HEPARIN SOD/D5W 100 UNITS/ML 25,000 UNITS/250 ML BAG 12 UNITS IV CONT (05:52)
[2024-01-02] MEDS: NOREPINEPHRINE 8 MG/D5W 250 ML 8 MG/250 ML BAG 56.25 MG IV CONT (06:34)
--- NOTE | 2024-01-02 08:19 | WPDINTPN ---
Progress Note: A&P Assessment and Plan (1) Acute respiratory failure: Code(s): J96.00 - Acute respiratory failure, unspecified whether with hypoxia or hypercapnia Status: Acute Assessment and Plan: Acute Respiratory failure secondary to encephalopathy, pulmonary edema, possible pneumonia Patient on BiPAP with poor mental status and hemodynamically unstable. Needs transvenous pacemaker placement and will need to lay flat for the procedure. Patient intubated emergently after transferring to ICU. CT chest IMPRESSION: 1. Moderate-sized pleural effusions. 2. Patchy groundglass opacities in the upper lobes, consistent with mild pulmonary edema versus inflammation/infection. ABG reviewed and decrease PEEP to 5 May need thoracentesis Continue SOLE EDGE INKER MACHINE to remove fluid (2) Complete heart block: Code(s): I44.2 - Atrioventricular block, complete Status: Acute Assessment and Plan: Complete heart block at this time with hypotension Status post temporary pacemaker placement Hold amiodarone Patient has underlying AFib rhythm. Will discuss with Cardiology regarding pausing pacing and monitoring (3) Shock: Code(s): R57.9 - Shock, unspecified Status: Acute Assessment and Plan: Patient had borderline blood pressure during rapid response. Once intubated he became hypotensive. No good IV access. Central venous catheter was placed emergently. Patient was started on Levophed. /10 patient was dialyzed yesterday and 2 L ultrafiltration was done later in the evening patient became more hypotensive with increased vasopressor requirement. 500 mL fluid bolus was given. Patient also received albumin yesterday. Continue Levophed titration. Need to add epinephrine drip. Will start stress dose hydrocortisone Antibiotics as below Holding further IV fluids as patient is overall volume overloaded (4) Sepsis: Code(s): A41.9 - Sepsis, unspecified organism Status: Acute Assessment and Plan: Patient presented with abnormal UA, elevated WBC infiltrates. His procalcitonin level was low but lactic level is high could be cardiogenic. Blood cultures have been sent and are negative till now He was started on empiric vancomycin and cefepime CT chest also does not show any significant pneumonia I will discontinue vancomycin and continue cefepime at this time (5) Acute kidney injury superimposed on chronic kidney disease: Code(s): N17.9 - Acute kidney failure, unspecified; N18.9 - Chronic kidney disease, unspecified Status: Acute Assessment and Plan: Patient has chronic kidney disease and now presented with acute kidney injury. Creatinine now 3.1 Patient was given diuretics 12/29 and 12/30 with very poor response Nephrology following Renal ultrasound negative Continues to oliguric. Creatinine further worse at 3.7. K 5.2 12/31 Requested Nephrology to initiate hemodialysis for fluid overload. Patient was dialyzed on 2 L ultrafiltration was done Continue dialysis per Nephrology. Patient may need CRRT as he is on high dose of Levophed at this time and still has volume overload (6) Acute UTI: Code(s): N39.0 - Urinary tract infection, site not specified Status: Acute Assessment and Plan: Antibiotics cultures (7) Pneumonia: Code(s): J18.9 - Pneumonia, unspecified organism Status: Acute Assessment and Plan: See above (8) Atrial fibrillation with RVR: Code(s): I48.91 - Unspecified atrial fibrillation Status: Acute Assessment and Plan: Patient presented with AFib with RVR and was cardioverted. Started on p.o. amiodarone Now in complete heart block and status post transvenous pacemaker Heparin infusion (9) History of intracranial hemorrhage: Code(s): Z86.79 - Personal history of other diseases of the circulatory system Status: Acute Assessment and Plan: Head CT shows or large MCA infarct Lovenox was started after ca
--- NOTE | 2024-01-02 08:37 | PM.PNNEP ---
Progress Note: A&P Assessment and Plan (1) REBECA (acute kidney injury): Code(s): N17.9 - Acute kidney failure, unspecified Status: Acute Assessment and Plan: as noted on admission suspect due to multiple issues: Afib with RVR hemodynamic instability on admission/hypotension/shock infection/early sepsis LYNDA-I use prior to admission urinary retention evaluation to date noted: renal ultrasound unremarkable CPK midly elevated but trend down urine electrolytes prerenal urine eosinophils negative no significant proteinuria given poor UOP and rising K+; initiate renal replacement/dialysis yesterday unfortunately, given high dose vasopressor requirement, would tolerated conventional/intermittent dialysis if continue dialytic therapy needed, he will need CRRT which would require transfer to another facility as this is not available here at [facility] follow trend of repeat labs and UOP for potential renal recovery (2) Stage 3b chronic kidney disease (CKD): Code(s): N18.32 - Chronic kidney disease, stage 3b Status: Chronic Assessment and Plan: baseline creatinine runs around 1.4 - 1.8mg/dl presumable secondary to hypertension, diabetes, vascular disease, urinary retention/chronic pulido catheter, and age-related change (3) Complete heart block: Code(s): I44.2 - Atrioventricular block, complete Status: Acute Assessment and Plan: as noted by telemetry on 12/30 s/p temporary pacemaker placement amiodarone on hold likely to need permanent pacemaker Cardiology following (4) Acute respiratory failure: Code(s): J96.00 - Acute respiratory failure, unspecified whether with hypoxia or hypercapnia Status: Acute Assessment and Plan: due to several issues: AMS/encephalopathy pulmonary edema possible pneumonia on mechanical ventilation CT of chest noted attempt fluid removal with dialysis as tolerated by hemodynamics (5) Shock: Code(s): R57.9 - Shock, unspecified Status: Acute Assessment and Plan: worsening septic versus cardiogenic versus combination of both(?) abnormal UA elevated WBC elevated lactic acid on high dose vasopressor support follow culture data on antibiotics (6) Atrial fibrillation with RVR: Code(s): I48.91 - Unspecified atrial fibrillation Status: Acute Assessment and Plan: new diagnosis on last hospitalization Echo with preserved EF s/p cardioversion due to hemodynamic instability (on 12/27) on heparin gtt Cardiology following (7) Diabetes type 2, controlled: Qualifiers: Diabetes mellitus jail insulin use: without manager long term care use Diabetes mellitus complication status: with unspecified complications Qualified Code(s): E11.8 - Type 2 diabetes mellitus with unspecified complications Code(s): E11.9 - Type 2 diabetes mellitus without complications Status: Acute Assessment and Plan: follow accu-cheks glycemic control per intensivisit/hospitalists . Will continue to follow. Subjective Date/time seen: 01/02/24 08:37 Interval history: Follow-up for acute kidney injury/acute renal failure on chronic kidney disease. Tolerated dialysis treatment yesterday afternoon without any issues or problems with about 2L fluid removal/ultrafiltration; however, overnight he had worsening hypotension requiring IV fluid boluses and eventual titration of his vasopressor requirements; remains intubated/sedated and on mechanical ventilation with relatively stable ventilator requirement; poor urine output noted Exam Narrative: General: frail and elderly male intubated/sedated and on mechanical ventilation Heart: normal S1 and S2; no rub Lungs: coarse breath sounds with bibasilar crackles Abdomen: soft, nontender, nondistended, hypoactive bowel sounds Extremities: no cyanosis or clubbing; 1+ edema Ski
--- NOTE | 2024-01-02 08:37 | P.PNNP_ITS ---
Progress Note: A&P Assessment and Plan (1) REBECA (acute kidney injury): Code(s): N17.9 - Acute kidney failure, unspecified Status: Acute Assessment and Plan: * as noted on admission * suspect due to multiple issues: * Afib with RVR * hemodynamic instability on admission/hypotension/shock * infection/early sepsis * LYNDA-I use prior to admission * urinary retention * evaluation to date noted: * renal ultrasound unremarkable * CPK midly elevated but trend down * urine electrolytes prerenal * urine eosinophils negative * no significant proteinuria * given poor UOP and rising K+; initiate renal replacement/dialysis yesterday * unfortunately, given high dose vasopressor requirement, would tolerated conventional/intermittent dialysis * if continue dialytic therapy needed, he will need CRRT which would require transfer to another facility as this is not available here at [facility] * follow trend of repeat labs and UOP for potential renal recovery (2) Stage 3b chronic kidney disease (CKD): Code(s): N18.32 - Chronic kidney disease, stage 3b Status: Chronic Assessment and Plan: * baseline creatinine runs around 1.4 - 1.8mg/dl * presumable secondary to hypertension, diabetes, vascular disease, urinary retention/chronic pulido catheter, and age-related change (3) Complete heart block: Code(s): I44.2 - Atrioventricular block, complete Status: Acute Assessment and Plan: * as noted by telemetry on 12/30 * s/p temporary pacemaker placement * amiodarone on hold * likely to need permanent pacemaker * Cardiology following (4) Acute respiratory failure: Code(s): J96.00 - Acute respiratory failure, unspecified whether with hypoxia or hypercapnia Status: Acute Assessment and Plan: * due to several issues: * AMS/encephalopathy * pulmonary edema * possible pneumonia * on mechanical ventilation * CT of chest noted * attempt fluid removal with dialysis as tolerated by hemodynamics (5) Shock: Code(s): R57.9 - Shock, unspecified Status: Acute Assessment and Plan: * worsening * septic versus cardiogenic versus combination of both(?) * abnormal UA * elevated WBC * elevated lactic acid * on high dose vasopressor support * follow culture data * on antibiotics (6) Atrial fibrillation with RVR: Code(s): I48.91 - Unspecified atrial fibrillation Status: Acute Assessment and Plan: * new diagnosis on last hospitalization * Echo with preserved EF * s/p cardioversion due to hemodynamic instability (on 12/27) * on heparin gtt * Cardiology following (7) Diabetes type 2, controlled: Qualifiers: Diabetes mellitus moth exterminator insulin use: without moth exterminator use Diabetes mellitus complication status: with unspecified complications Qualified Code(s): E11.8 - Type 2 diabetes mellitus with unspecified complications Code(s): E11.9 - Type 2 diabetes mellitus without complications Status: Acute Assessment and Plan: * follow accu-cheks * glycemic control per intensivisit/hospitalists . Will continue to follow. Subjective Date/time seen: 01/02/24 08:37 Interval history: Follow-up for acute kidney injury/acute renal failure on chronic kidney disease. Tolerated dialysis treatment yesterday afternoon without any issues or problems with about 2L fluid removal/ultrafiltration; however, overnight he had worsening hypotensi
[2024-01-02] MEDS: ASCORBIC ACID 500 MG TABLET 1000 MG PO (08:49)
[2024-01-02] MEDS: ASPIRIN 81 MG ENTERIC TABLET PO (08:50)
[2024-01-02] MEDS: MULTIVITAMINS THERAPEUTIC TAB (*BKC) 1 TABLET PO (08:50)
[2024-01-02] MEDS: SENNOSIDES 8.6 MG TABLET PO (08:50)
[2024-01-02 08:52] LABS: Glucose Point of Care 193 mg/dl (65-105)
[2024-01-02] MEDS: PANTOPRAZOLE SODIUM IV 40 MG VIAL IV PUSH (08:55)
[2024-01-02] MEDS: HYDROCORTISONE SODIUM SUCCINATE 100 MG/2 ML VIAL IV PUSH (08:55)
[2024-01-02] MEDS: CEFEPIME 1 GM/NS 50 ML 1 GM/50 ML BAG IVPB (08:57)
[2024-01-02] MEDS: polyethylene glycoL 3350 17 GM POWD.PACK PO (08:57)
[2024-01-02] MEDS: INSULIN GLARGINE (*BKC) 100 UNITS/ML 10 UNITS SUB-Q (08:57)
[2024-01-02] MEDS: MINERAL OIL/WHITE PETROLATUM OINTMENT 1 APPLIC EACH EYE (09:03)
[2024-01-02] MEDS: SODIUM ZIRCONIUM CYCLOSILICATE 10 GM POWD.PACK FEED TUBE (09:04)
--- NOTE | 2024-01-02 09:39 | PM.PNCARD ---
Progress Note: A&P Assessment and Plan (1) Complete heart block: Code(s): I44.2 - Atrioventricular block, complete Status: Acute Assessment and Plan: On 12/30, patient went into complete heart block. Underwent placement of emergent temporary transvenous pacer in the pit laborer. Amiodarone stopped. Continue to avoid all AV maryjo blocking agents. Will need permanent pacemaker, will tentatively plan for Saturday with Dr. Morillo. Continue temporary transvenous pacer until then. Obtain daily CXRs to confirm position of transvenous pacer. (2) Atrial fibrillation with RVR: Code(s): I48.91 - Unspecified atrial fibrillation Status: Acute Assessment and Plan: New diagnosis of atrial fibrillation last admission. Echocardiogram with preserved LVEF. Presented to the ER on 12/27 in atrial fibrillation with RVR. He was cardioverted in the ED for RVR with hypotension with SBP 75/58mmHg. Patient was started on therapeutic Lovenox after this, however, currently on a Heparin drip.? Patient remains in elevated risk for hemorrhagic and embolic stroke complications.? Patient has multiple comorbidities as a high risk for serious life-threatening complications in this regard. (3) Acute respiratory failure: Code(s): J96.00 - Acute respiratory failure, unspecified whether with hypoxia or hypercapnia Status: Acute Assessment and Plan: Remains intubated. (4) Acute kidney injury superimposed on chronic kidney disease: Code(s): N17.9 - Acute kidney failure, unspecified; N18.9 - Chronic kidney disease, unspecified Status: Acute Assessment and Plan: Started on hemodialysis, but may need CRRT. Nephrology consulted and following along. (5) Shock: Code(s): R57.9 - Shock, unspecified Status: Acute Assessment and Plan: Remains on Levophed. Plan Recommendations and plan discussed with Cardiograph Operator. Subjective Date/time seen: 01/02/24 09:39 Interval history: Reason for visit: Atrial fibrillation with RVR HPI: This is an 83-year-old man who was a not known to me prior to this consultation he was seen by my partners recently with intermittent/paroxysmal atrial fibrillation.? The patient was admitted here yesterday from the emergency room after he was sent by his group home because of recurrent AFib with RVR.? The patient's onset of atrial fibrillation is not known to me but he was seen here recently earlier in the month by my partners with the same arrhythmia.? He was treated with metoprolol and was not felt to be a candidate for anticoagulation because of history of frequent falling with significant trauma as well as a history of intracranial hemorrhage in the past.? He was discharged back to his residential facility on a modest dose of metoprolol.? His noninvasive evaluation by ECG and ECHO demonstrated evidence of what appears to be a previous anteroapical infarction of unknown duration.? The patient after being seen in the emergency room was treated with some intravenous diltiazem which has been stopped.? He was taken off of metoprolol.? His ECG upon arrival showed atrial fibrillation with a rapid ventricular response subsequent EKG demonstrated evidence of what appears to be an ectopic atrial rhythm with variable conduction.? I am not able to see the electrocardiograms directly since the ECG system is not functional over the weekend.? The telemetry strips however appear to show an ectopic atrial tachycardia with variable conduction.? In this setting I am seeing him in consultation.? He is taking no medication for this at all since his beta-giovanni has been stopped he is feeling comfortable at this time and denies any other complaints.? There were some comments in the record as to his ECG demonstrating evidence of high-grade even third-degree AV block.? Most of the strips that I am reviewing appear to show evidence of the atrial tachycardia with block I do not believe we are seeing sinus
[2024-01-02 10:45] LABS: Partial Thromboplastin Time 66.5 Seconds (22.3-36.8)
--- NOTE | 2024-01-02 10:47 | PM.EVENT ---
Event Note Event Note Event Note: I met with patient's brother at bedside to discuss medical decisions and level of care regarding patient's condition. Patient is intubated and sedated and unable to participate. I updated him with patient's current condition including respiratory failure, congestive heart failure, volume overload, acute renal failure, atrial fibrillation with bradycardia requiring transvenous pacemaker, need for permanent pacemaker, shock by vasopressors, potential need for CRRT, current treatment plan, expected prognosis and different potential outcomes. I answered all his questions. Patient brother lives in [place] and patient himself does not have any spouse or children. No other family member this area. Brother told me the patient had a stroke many years ago and since then he has had poor quality of life. He is a resident in facility and walks with walker and mostly stays in bed. He has had a Camilo catheter since his hip fracture. He does not believe the patient would want to continue living with this much life support considering the overall poor prognosis and his age. He told me the patient expressed to him that he would not want to stay on a ventilator for prolonged period of time in the past. I met with him again at bedside later and presence of Right Of Way Maintenance Supervisor Dr. Naylor and patient's nurse Meaghan. He has decided, in accordance with pt's wishes, to discontinue all medical therapy and institute comfort measures only. I explained him that I will use opioids, anxiolytics and other agents on as needed basis to promote comfort and discontinue all medical therapy, lab testing and invasive monitoring. Patient will eventually . He verbalized understanding and agreed to proceed at this time. Requested nurse to notify primary hospitalist physician Additional time spent 30 minutes
--- NOTE | 2024-01-02 10:50 | PC.NURSE ---
Called [facility] regarding family's wishes for withdrawal of care; spoke with Frandy. Frandy stated he is not a candidate for DCD and to notify with patient expires
[2024-01-02] MEDS: MORPHINE SULFATE INJ (*CRX) 10 MG/ML AMP 5 MG IV PUSH (10:58)
[2024-01-02] MEDS: LORazepam INJ (*CRX) 2 MG/ML VIAL IV PUSH (10:59)
--- NOTE | 2024-01-02 11:03 | PCFNICU ---
ICU Rounding Note: Pt current nutrition is Nepro at 40 ml/hr. Last recorded weight is 89.5 kg, up from 87.3 kg on admit. Bowel Motility: +BM reported 4/4 Labs Reviewed:Glu 225, BUN 44,GFR 18, Cr 3.3, GFR 18, Hct 26.6,Hgb 8.5 Meds Noted:Vit C, MVI, Levophed, Versed, Fentanyl, Protonix, Miralax, Senokot. Skin: stage 1-right buttock. Additional Notes: Patient remains on mechanical vent. Tube feedings on hold for residuals at 650 ml. Plans to restart today. Agree with diet orders of Nepro at 40 ml/hr, flush at 30 ml q 4 hours. Following daily in ICU rounds. Will monitor in ICU rounds as reassessing every Saturday and Saturday.
[2024-01-02] MEDS: MORPHINE SULFATE (*CRX) 2 MG/ML INJ 4 MG IV PUSH (11:33)
--- NOTE | 2024-01-03 17:44 | P.DN_ITS ---
Discharge Summary Date and Time Date of : 01/02/24 Time of : 11:44 Provider Pronounced By: jammie sharp rn and iris ramos rn Probable Cause of Probable Cause of : complete heart block Summary Hospital Course: Patient is an 83-year-old male with past medical history essential hypertension, atrial fibrillation, history of intracranial bleed, CKD who presents to the ED on 12/29/23 from senior living with complaints of chest pain. he is found to be in AFib with RVR and required cardioversion in the ED. after cardioversion he was anticoagulated. chest x-ray was concerning for infiltrates versus atelectasis. subsequently his heart rate would fluctuate from 90s to 30s, there was concern for sick sinus syndrome concerning his atrial fibrillation and fluctuating heart rate. There was also confusion on if there was 3rd degree heart block or not. cardiology evaluated patient who believes patient had an atypical atrial flutter or slow atrial tachycardia, recommendation was to hold metoprolol and use amiodarone. The subsequent day on 12/31/2023 he became further bradycardic with heart rates down to the 40s and telemetry showing complete heart block. patient had worsening respiratory status and was unable to lay flat. He was subsequently intubated and moved to the ICU under care of medical instrument cable fabricator. cardiology placed a temporary transvenous pacer. patient was found to multiorgan failure including oliguria concern of renal failure. Product Safety Officer placed hemodialysis catheter. patient was volume overloaded and not responding to diuretics. patient had low procalcitonin, source of infection was unclear if he had a UTI or pneumonia. labs and vitals were explained by cardiogenic shock. Because it was unclear patient had coverage with vancomycin and cefepime. He subsequently had negative renal ultrasound. Nephrology Started hemodialysis for fluid overload on 12/31. on 01/02/2024 patient's brother met with medical instrument cable fabricator who did discuss goals of care. They covered the patient's clinical deterioration including respiratory failure, congestive heart failure, volume overload, acute renal failure on dialysis, atrial fibrillation with bradycardia status post transvenous pacer, septic shock. patient's brother who is the main family involved also discussed with the medical language specialist and subsequently decided on comfort care measures only. Patient 11:44 on 01/02/24. family notified. Additional Data Confirmation of as documented by pronouncing clinician: Pupillary Reflex, Palpable Pulses, Response to Stimuli, Heart Tones and Breath Sounds Name of Provider Notified: dr. 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 Notified of : 11:47
== END 2024-01-02 11:44 | disposition expired | DRG 260 ==
LOC: ANHED 12-29 02:10 → ANHIMU 12-29 02:35 → ANHICU 12-31 11:36
PROVIDERS: Internal Medicine; Internal Medicine Nephrology; Physician Assistant; Admitting Provider Internal Medicine; Emergency Provider Emergency Medicine; PCP Nurse Practitioner Family; Visit Provider Student in an Organized Health Care Education/Training Program
PROC: (CPT 33210; principal; 2023-12-31 12:00)
DX: I48.0 Paroxysmal atrial fibrillation (principal); A41.9 Sepsis, unspecified organism; E43 Unspecified severe protein-calorie malnutrition; J18.9 Pneumonia, unspecified organism; J96.00 Acute respiratory failure, unspecified whether with hypoxia or hypercapnia; J81.0 Acute pulmonary edema; R65.21 Severe sepsis with septic shock; N39.0 Urinary tract infection, site not specified; N17.9 Acute kidney failure, unspecified; I44.2 Atrioventricular block, complete; R57.0 Cardiogenic shock; K21.9 Gastro-esophageal reflux disease without esophagitis; E11.22 Type 2 diabetes mellitus with diabetic chronic kidney disease; I12.9 Hypertensive chronic kidney disease with stage 1 through stage 4 chronic kidney disease, or unspecified chronic kidney disease; E87.79 Other fluid overload; I50.9 Heart failure, unspecified; I25.10 Atherosclerotic heart disease of native coronary artery without angina pectoris; N18.32 Chronic kidney disease, stage 3b; R53.81 Other malaise; R26.9 Unspecified abnormalities of gait and mobility; R34 Anuria and oliguria; D64.9 Anemia, unspecified; N40.0 Benign prostatic hyperplasia without lower urinary tract symptoms; E78.5 Hyperlipidemia, unspecified; Z85.820 Personal history of malignant melanoma of skin; Z85.828 Personal history of other malignant neoplasm of skin; Z87.891 Personal history of nicotine dependence; Z68.25 Body mass index [BMI] 25.0-25.9, adult; Z86.73 Personal history of transient ischemic attack (TIA), and cerebral infarction without residual deficits
CPT/HCPCS: 31500; 33210; 36415; 36600; 70450; 71045; 71250; 80048; 80053; 80202; 81001; 81050; 82375; 82550; 82570; 82805; 82948; 83050; 83605; 83690; 83735; 84100; 84145; 84156; 84300; 84443; 84484; 84540; 85025; 85027; 85610; 85730; 85999; 86706; 87040; 87086; 87340; 87637; 87641; 93005; 94002; 94003; 96361; 96374; 96375; 99285; A9270; C1751; C1752; C1894; C9113; G0257; J0171; J0456; J0461; J0692; J1644; J1650; J1720; J1815; J1939; J1940; J2060; J2250; J2270; J2405; J3010; J3370; J3475; J7030; J7040; J7120; L1830; P9047